=== PATIENT | male | born 1955 | race Caucasian/White ===

== ENCOUNTER 2016-09-08 12:04 | Emergency (ER) | payer OTHER ==
[~2016-09-08] VITALS: Ht 182.9 cm; Wt 91.4 kg
[2016-09-08 12:09] VITALS: BP 144/89; PULSE 78; RESP 18; TEMP 98; O2SAT 98
[2016-09-08] MEDS ORDERED: METF500T PO (12:37)
[2016-09-08] MEDS ORDERED: NADO20TA PO (12:37)
[2016-09-08] MEDS ORDERED: OMEP20TA PO (12:37)
[2016-09-08] MEDS ORDERED: SODIUM CHLORIDE 0.9% FLUSH 10 ML FLUSH IV FLUSH PRN (13:15)
[2016-09-08 13:16] VITALS: O2SAT 97
[2016-09-08 13:38] LABS: AUTOMATED NEUTROPHIL # 2.5 TH/MM3 (1.8-7.7); BASOPHIL % 0.3 % (0.0-2.0); EOSINOPHIL # 0.1 TH/MM3 (0-0.4); EOSINOPHIL % 3.6 % (0.0-4.0); HEMATOCRIT 39.1 % (39.0-51.0); LYMPH % 18.8 % (9.0-44.0); LYMPHOCYTE # 0.8 TH/MM3 (1.0-4.8); MEAN CELL VOLUME 95.8 FL (80.0-100.0); MEAN CORPUSCULAR HEMOGLOBIN 32.6 PG (27.0-34.0); MONO % 14.2 % (0.0-8.0); NEUT % 63.1 % (16.0-70.0); PLATELET COUNT 86 TH/MM3 (150-450); RED BLOOD COUNT 4.08 MIL/MM3 (4.50-5.90); RED CELL DISTRIBUTION WIDTH 15.7 % (11.6-17.2)
[2016-09-08 13:43] LABS: HEMO FLAGS AUTO DIFF
--- NOTE | 2016-09-08 13:43 | PD ---
HPI Chief Complaint: Edema Time Seen by Provider: 12:18 Travel History International Travel<30 days: No Contact w/Intl Traveler<30days: No Traveled to known affect area: No History of Present Illness HPI Is 61-year-old male with a history of hemachromatosis and fairly heavy alcohol use and cirrhosis presents emergency department for increasing abdominal distention over the past 4-5 days. Patient states he has been told he had fluid on his abdomen before but has never had any drained off. Denies any fever denies any abdominal pain. Patient states is causing fairly tense abdomen and states that he has sometimes having a problem taking a deep breath secondary to fluid. States that he called his radial drill operator here in town who cannot see him until next week, called his primary care physician who offered to see him about 4:00 this afternoon but ultimately decided to come to see the emergency department first. First encounter with the patient is sitting upright in a stretcher in no apparent distress reading a magazine. He also has noticed some swelling in bilateral lower extremities. His main complaint to me today as it feels uncomfortable when he bends over to tie his shoes. PFSH Past Medical History Asthma: Yes Diabetes: Yes Patient Takes Glucophage: Yes Diminished Hearing: No Gastrointestinal Disorders: Yes (HEMACHROMATOSIS/LIVER FAILURE) GERD: Yes Hypertension: Yes Medical other: Yes (UMBILICAL HERNIA) Tetanus Vaccination: > 5 Years Influenza Vaccination: Yes Past Surgical History Abdominal Surgery: Yes (HERNIA REPAIR X2) Social History Alcohol Use: No (FORMER) Tobacco Use: No Substance Use: No Allergies-Medications (Allergen,Severity, Reaction): Coded Allergies: No Known Allergies (Unverified , 09/08/16) Reported Meds & Prescriptions Reported Meds & Active Scripts Active Reported Metformin (Metformin HCl) 500 Mg Tab 500 Mg PO BIDPC With meals Omeprazole 20 Mg Tab 20 Mg PO DAILY Nadolol 20 Mg Tab 20 Mg PO DAILY Review of Systems Except as stated in HPI: all other systems reviewed are Neg Physical Exam Narrative GENERAL: [Well-developed well-nourished, no apparent distress. SKIN: Focused skin assessment warm/dry. No jaundice HEAD: Atraumatic. Normocephalic. EYES: Pupils equal and round. No scleral icterus. No injection or drainage. ENT: No nasal bleeding or discharge. Mucous membranes pink and moist. NECK: Trachea midline. No JVD. CARDIOVASCULAR: Regular rate and rhythm. No murmur appreciated. RESPIRATORY: No accessory muscle use. Clear to auscultation. Breath sounds equal bilaterally. GASTROINTESTINAL: Abdomen soft, non-tender, distended consistent with a full- term . There is positive fluid wave an umbilical hernia which is easily reduced. No peritoneal signs, no rebound no percussive tenderness. Hepatic and splenic margins not palpable. MUSCULOSKELETAL: No obvious deformities. No clubbing. No cyanosis. 2+ bilateral lower extremity pitting edema to the mid tibia.. NEUROLOGICAL: Awake and alert. No obvious cranial nerve deficits. Motor grossly within normal limits. Normal speech. PSYCHIATRIC: Appropriate mood and affect; insight and judgment normal. Data Data Last Documented VS Vital Signs Date Time Temp Pulse Resp B/P Pulse Ox O2 Delivery O2 Flow Rate FiO2 09/08/16 15:13 71 18 147/81 100 Room Air 09/08/16 12:09 98.0 Orders Complete Blood Count With Diff (09/08/16 13:13) Comprehensive Metabolic Panel (09/08/16 13:13) Lipase (09/08/16 13:13) Prothrombin Time / Inr (Pt) (09/08/16 13:13) Act Partial Throm Time (Ptt) (09/08/16 13:13) Iv Access Insert/Monitor (09/08/16 13:13) Ecg Monitoring (09/08/16 13:13) Oximetry (09/08/16 13:13) Sodium Chloride 0.9% Flush (Ns Flush) (09/08/16 13:15) Electrocardiogram (09/08/16 13:13) Chest, Single Ap (09/08/16 ) Ed Poc Ultrasound (09/08/16 ) Labs Laboratory Tests Test 09/08/16 13:30 White Blood Count 4.0 TH/MM3 Red Blood Count 4.08 MIL/MM3 Hemoglobin 13.3 GM/DL Hematocrit 39.1 % Mean Corpuscular Volume 95.8 FL Mean Corpuscular Hemoglobin 32.6 PG Mean Corpuscular Hemoglobin 34.0 % Concent Red Cell Distribution Width 15.7 % Platelet Count 86 TH/MM3 Mean Platelet Volume 9.0 FL Neutrophils (%) (Auto) 63.1 % Lymphocytes (%) (Auto) 18.8 % Monocytes (%) (Auto) 14.2 % Eosinophils (%) (Auto) 3.6 % Basophils (%) (Auto) 0.3 % Neutrophils # (Auto) 2.5 TH/MM3 Lymphocytes # (Auto) 0.8 TH/MM3 Monocytes # (Auto) 0.6 TH/MM3 Eosinophils # (Auto) 0.1 TH/MM3 Basophils # (Auto) 0.0 TH/MM3 CBC Comment AUTO DIFF Differential Comment AUTO DIFF CONFIRMED Platelet Estimate LOW Platelet Morphology Comment NORMAL Prothrombin Time 14.4 SEC Prothromb Time International 1.3 RATIO Ratio Activated Partial 33.0 SEC Thromboplast Time Sodium Level 137 MEQ/L Potassium Level 4.1 MEQ/L Chloride Level 100 MEQ/L Carbon Dioxide Level 26.6 MEQ/L Anion Gap 10 MEQ/L Blood Urea Nitrogen 8 MG/DL Creatinine 0.70 MG/DL Estimat Glomerular Filtration 115 ML/MIN Rate Random Glucose 127 MG/DL Calcium Level 8.6 MG/DL Total Bilirubin 3.4 MG/DL Aspartate Amino Transf 70 U/L (AST/SGOT) Alanine Aminotransferase 39 U/L (ALT/SGPT) Alkaline Phosphatase 148 U/L Total Protein 7.8 GM/DL Albumin 2.6 GM/DL Lipase 162 U/L [facility] Medical Decision Making Medical Screen Exam Complete: Yes Emergency Medical Condition: Yes Interpretation(s) EKG shows normal sinus rhythm normal axis and normal R-wave progression. Borderline prolonged QT with QTC of 467. Remainder of the intervals within normal limits. No concerning ST T changes. This is a borderline EKG. Differential Diagnosis Asciites, liver failure, coagulopathy, hemachromatosis. Narrative Course Patient roomed in ED. He is reading a magazine in [facility]. His chief complaint is that his abdominal distension is limiting is flexion at the waist and difficult to tie his shoes. He has no indication for emergent paracentesis at this time. Safer alternative is for IR intervention and an ambulatory order has been placed. Discussed he needs to follow up with his PCP and discussed need for follow up with his GI which he states he has already established. His labs suggest a moderate liver disfunction with INR of 1.3, moderate hypoalbuminemia and mild thrombocytopenia. Discussed continued abstinence from alcohol he quit alcohol in june. Discussed return to ED criteria. Procedures Procedure Narrative Bedside ultrasound transabdominal: There is free fluid in the majority of his abdomen. This represents significant amount of ascites. Diagnosis Primary Impression: Ascites Qualified Code: R18.8 - Other ascites Additional Instructions: Patient has no indication for emergent drainage of large volume ascites today. He has been referred to interventional radiology. I have urged him to follow- up with his radial drill operator and his primary care provider. Disposition: 01 DISCHARGE HOME Condition: Stable Luis Enrique Rios MD Sep 08, 2016 13:43
[2016-09-08 13:45] LABS: CHLORIDE 100 MEQ/L (98-107); POTASSIUM 4.1 MEQ/L (3.5-5.1); SODIUM (NA) 137 MEQ/L (136-145)
[2016-09-08 13:49] LABS: ANION GAP 10 MEQ/L (5-15); BICARBONATE 26.6 MEQ/L (21.0-32.0)
[2016-09-08 13:50] LABS: BLOOD UREA NITROGEN 8 MG/DL (7-18); INTERNATIONAL NORMALIZED RATIO 1.3 RATIO; PROTHROMBIN TIME - PATIENT 14.4 SEC (9.8-11.6)
[2016-09-08 13:52] LABS: ALT (GPT) 39 U/L (12-78); AST (GOT) 70 U/L (15-37); GLOMERULAR FILTRATION RATE 115 ML/MIN (>89)
[2016-09-08 13:54] LABS: TOTAL BILIRUBIN ADULT 3.4 MG/DL (0.2-1.0)
[2016-09-08 13:55] LABS: ALKALINE PHOSPHATASE 148 U/L (45-117)
[2016-09-08 14:07] LABS: PLATELET ESTIMATE SMEAR LOW (NORMAL); PLATELET MORPHOLOGY NORMAL (NORMAL); SCAN/DIFF AUTO DIFF CONFIRMED
--- NOTE | 2016-09-08 14:12 | RADHPO ---
EXAM DATE/TIME: 09/08/2016 13:49 [facility] COMPARISON: No previous studies available for comparison. INDICATIONS : Cough and retaining fluid MEDICAL HISTORY : Chronic obstructive pulmonary disease. SURGICAL HISTORY : None. ENCOUNTER: Initial ACUITY: 2 days PAIN SCORE: 1/10 LOCATION: Bilateral chest FINDINGS: Linear areas of apparent atelectasis are seen in both bases. Heart and pulmonary vascularity are nor mal. Portions of the bony skeleton visualized are unremarkable. CONCLUSION: Apparent atelectatic changes both bases, otherwise negative. Aryan Macias MD FACR on September 08, 2016 at 14:03 Board Certified Radiologist. This report was verified electronically.
[2016-09-08 15:13] VITALS: BP 147/81; PULSE 71; RESP 18; O2SAT 100
--- NOTE | 2016-09-09 21:31 | EKG ---
Date Performed: 09/08/2016 Time Performed: 13:19:36 PTAGE: 61 years EKG: Sinus rhythm Prolonged QT interval Lateral T wave changes are nonspecific Low QRS voltages in precordial leads Dago rderline ECG NO PREVIOUS TRACING DOCTOR: Myrna Cruz Interpretating Date/Time 09/09/2016 21:30:31
== END 2016-09-08 15:19 | disposition home or self-care (01) ==
LOC: PHED 12:04
DX: R18.8 Other ascites (principal); I10 Essential (primary) hypertension
CPT/HCPCS: 71010; 80053; 83690; 85025; 85610; 85730; 93005

== ENCOUNTER 2016-09-17 10:02 | Day surgery (SDC) | payer OTHER ==
[~2016-09-17 10:02] MED LIST: METF500T PO; NADO20TA PO; OMEP20TA PO
[2016-09-17 11:18] VITALS: BP 137/93; PULSE 72; RESP 16; TEMP 97; O2SAT 99
[2016-09-17] MEDS ORDERED: ALBUMIN HUMAN 25% 25 GM/100 ML BAGP IV ONE (12:30)
[2016-09-17 12:50] VITALS: BP 126/63; PULSE 82; RESP 16; TEMP 98.7; O2SAT 99
[2016-09-17 13:05] VITALS: BP 128/75; PULSE 82; RESP 16; O2SAT 99
[2016-09-17 13:20] VITALS: BP 134/77; PULSE 78; RESP 16; O2SAT 99
--- NOTE | 2016-09-17 14:32 | RADRPT ---
EXAM DATE/TIME: 09/17/2016 11:09 [facility] COMPARISON: No previous studies available for comparison. INDICATIONS : Ascites. MEDICAL HISTORY : Hypertension. Gastroesophageal reflux disease. Asthma. Liver failure. Hemachromatosis. Diabetes. SURGICAL HISTORY : Hernia repair. Colonoscopy. ENCOUNTER: Initial ACUITY: 3 weeks PAIN SCORE: 3/10 LOCATION: Abdomen. FLUID: Total volume of 6000 cc of clear, red fluid was removed. Fluid was discarded. Paracentesis was therapeutic only. Post procedure scanning reveals no hematoma or other complication. TECHNIQUE: 1. Ultrasound guidance for abdominal paracentesis. 2. Paracentesis. The risks, benefits, and alternatives to ultrasound guided paracentesis were explained to the patient in detail including the risk of bleeding and infection. Written and verbal informed consent was obt ained. With the patient on the ultrasound table, ultrasound imaging was used to select the most appropriate approach for paracentesis. Overlying skin was prepped and draped in the usual sterile fashion and wi th a local anesthetic, a dermatotomy was made with an 11 blade scalpel. A 6 Telugu [id number] ca theter was introduced into the peritoneal cavity and fluid was collected. The patient tolerated the procedure well and left the ultrasound suite in stable condition. CONCLUSION: Uncomplicated ultrasound guided paracentesis. Only 6000 cc were removed in this initial paracentesis . Patient received albumin per protocol. Aryan Macias MD FACR on September 17, 2016 at 14:30 Board Certified Radiologist. This report was verified electronically.
== END 2016-09-17 13:40 | disposition home or self-care (01) ==
LOC: HRAD 10:02 → HRIP 10:07 → HRAD 13:40
PROVIDERS: ATTEND Hospitalist
DX: R18.8 Other ascites (principal); I10 Essential (primary) hypertension; E11.9 Type 2 diabetes mellitus without complications; J45.909 Unspecified asthma, uncomplicated; K21.9 Gastro-esophageal reflux disease without esophagitis
CPT/HCPCS: 49083; C1729; P9047; 96365

== ENCOUNTER 2016-09-24 09:49 | Day surgery (SDC) | payer OTHER ==
[2016-09-24 10:50] VITALS: BP 139/77; PULSE 86; RESP 18; TEMP 97; O2SAT 100
[2016-09-24] MEDS ORDERED: ALBUMIN HUMAN 25% 50 GM IV ONE (12:00)
[2016-09-24 12:10] VITALS: BP 142/79; PULSE 62; RESP 20; TEMP 98.4; O2SAT 98
--- NOTE | 2016-09-24 12:20 | RADRPT ---
EXAM DATE/TIME: 09/24/2016 10:57 [facility] COMPARISON: US GUIDED ABD PARACENTESIS, September 17, 2016, 11:09. INDICATIONS : Ascites. MEDICAL HISTORY : Hypertension. Gastroesophageal reflux disease. Asthma. Liver failure. Hemachromatosis. Diabetes. SURGICAL HISTORY : Hernia repair. Colonoscopy. ENCOUNTER: Subsequent ACUITY: 1 week PAIN SCORE: 0/10 LOCATION: Right lower quadrant FLUID: Total volume of 8,000 cc of cloudy, red fluid was removed. Fluid was discarded. Paracentesis was therapeutic only. Post procedure scanning reveals no hematoma or other complication. TECHNIQUE: 1. Ultrasound guidance for abdominal paracentesis. 2. Paracentesis. The risks, benefits, and alternatives to ultrasound guided paracentesis were explained to the patient in detail including the risk of bleeding and infection. Written and verbal informed consent was obt ained. With the patient on the ultrasound table, ultrasound imaging was used to select the most appropriate approach for paracentesis. Overlying skin was prepped and draped in the usual sterile fashion and wi th a local anesthetic, a dermatotomy was made with an 11 blade scalpel. A 6 Indonesian [id number] ca theter was introduced into the peritoneal cavity and fluid was collected. The patient tolerated the procedure well and left the ultrasound suite in stable condition. CONCLUSION: Uncomplicated ultrasound guided paracentesis. Low Lynn MD on September 24, 2016 at 12:18 Board Certified Radiologist. This report was verified electronically.
[2016-09-24 12:35] VITALS: BP 140/84; PULSE 80; RESP 20; O2SAT 97
[2016-09-24 13:30] VITALS: BP 142/82; PULSE 83; RESP 20; O2SAT 98
== END 2016-09-24 13:36 | disposition home or self-care (01) ==
LOC: HRAD 09:49
PROVIDERS: ATTEND Hospitalist
DX: R18.8 Other ascites (principal); E11.9 Type 2 diabetes mellitus without complications; I10 Essential (primary) hypertension; J45.909 Unspecified asthma, uncomplicated; K21.9 Gastro-esophageal reflux disease without esophagitis
CPT/HCPCS: 49083; 96365; C1729; P9047

== ENCOUNTER 2016-10-02 09:52 | Day surgery (SDC) | payer OTHER ==
[2016-10-02] MEDS ORDERED: ALBUMIN HUMAN 25% 75 GM IV ONE (12:15)
--- NOTE | 2016-10-02 12:19 | RADRPT ---
EXAM DATE/TIME: 10/02/2016 10:45 [facility] COMPARISON: EXTERNAL COMPARISON: US GUIDED ABD PARACENTESIS, September 24, 2016, 10:57. [facility], MRI ABDOMEN W & W/O CONTRAST , Aug 20 2016. INDICATIONS : Ascites. MEDICAL HISTORY : Hypertension. Gastroesophageal reflux disease. Asthma. Liver failure. Hemachromatosis. Diabetes. SURGICAL HISTORY : Hernia repair. Colonoscopy. ENCOUNTER: Subsequent ACUITY: 1 week PAIN SCORE: 0/10 LOCATION: Left lower quadrant FLUID: Total volume of 13,100 cc of cloudy, red fluid was removed. Fluid was discarded. Paracentesis was therapeutic only. Post procedure scanning reveals no hematoma or other complication. TECHNIQUE: 1. Ultrasound guidance for abdominal paracentesis. 2. Paracentesis. The risks, benefits, and alternatives to ultrasound guided paracentesis were explained to the patient in detail including the risk of bleeding and infection. Written and verbal informed consent was obt ained. With the patient on the ultrasound table, ultrasound imaging was used to select the most appropriate approach for paracentesis. Overlying skin was prepped and draped in the usual sterile fashion and wi th a local anesthetic, a dermatotomy was made with an 11 blade scalpel. A 6 Welsh Xij-I-zrkwelox ca theter was introduced into the peritoneal cavity and fluid was collected. The patient tolerated the procedure well and left the ultrasound suite in stable condition. CONCLUSION: Uncomplicated ultrasound guided paracentesis. Luis Enrique Saavedra MD on October 02, 2016 at 12:17 Board Certified Radiologist. This report was verified electronically.
[2016-10-02 12:20] VITALS: BP 136/71; PULSE 74; RESP 20; TEMP 96.5; O2SAT 94
[2016-10-02 12:35] VITALS: BP 126/65; PULSE 74; RESP 20; O2SAT 93
== END 2016-10-02 13:38 | disposition home or self-care (01) ==
LOC: HRAD 09:52 → HRIP 10:10 → HRAD 13:38
PROVIDERS: ATTEND Hospitalist
DX: R18.8 Other ascites (principal); K72.90 Hepatic failure, unspecified without coma; K74.60 Unspecified cirrhosis of liver; E11.9 Type 2 diabetes mellitus without complications; I10 Essential (primary) hypertension; K21.9 Gastro-esophageal reflux disease without esophagitis
CPT/HCPCS: 49083; 96365; C1729; P9047

== ENCOUNTER 2016-10-22 09:48 | Day surgery (SDC) | payer OTHER ==
[2016-10-22 10:22] VITALS: BP 116/70; PULSE 71; RESP 18; TEMP 97; O2SAT 98
[2016-10-22 12:25] VITALS: BP 123/67; PULSE 67; RESP 18; TEMP 97.3; O2SAT 100
[2016-10-22] MEDS ORDERED: ALBUMIN HUMAN 25% 75 GM IV ONE (12:30)
[2016-10-22 12:40] VITALS: BP 119/68; PULSE 68; RESP 18; O2SAT 100
--- NOTE | 2016-10-22 12:49 | RADRPT ---
EXAM DATE/TIME: 10/22/2016 10:24 [facility] COMPARISON: No previous studies available for comparison. INDICATIONS : Ascites. MEDICAL HISTORY : Hypertension. Gastroesophageal reflux disease. Cirrhosis. Hemachromatosis. Diabetes. Asthma. SURGICAL HISTORY : Hernia repair. Colonoscopy. ENCOUNTER: [facility] ACUITY: 3 weeks PAIN SCORE: 0/10 LOCATION: Left lower quadrant FLUID: Total volume of 15,300 cc of clear, red fluid was removed. Fluid was discarded. Paracentesis was therapeutic only. Post procedure scanning reveals no hematoma or other complication. TECHNIQUE: 1. Ultrasound guidance for abdominal paracentesis. 2. Paracentesis. The risks, benefits, and alternatives to ultrasound guided paracentesis were explained to the patient in detail including the risk of bleeding and infection. Written and verbal informed consent was obt ained. With the patient on the ultrasound table, ultrasound imaging was used to select the most appropriate approach for paracentesis. Overlying skin was prepped and draped in the usual sterile fashion and wi th a local anesthetic, a dermatotomy was made with an 11 blade scalpel. A 6 Romanian [id number] ca theter was introduced into the peritoneal cavity and fluid was collected. The patient tolerated the procedure well and left the ultrasound suite in stable condition. CONCLUSION: Uncomplicated ultrasound guided paracentesis. Morgan Hutchison MD on October 22, 2016 at 12:47 Board Certified Radiologist. This report was verified electronically.
[2016-10-22 13:40] VITALS: BP 121/70; PULSE 66; RESP 18; O2SAT 99
== END 2016-10-22 13:45 | disposition home or self-care (01) ==
LOC: HRAD 09:48 → HRIP 09:48 → HRAD 13:45
PROVIDERS: ATTEND Hospitalist
DX: R18.8 Other ascites (principal); K74.60 Unspecified cirrhosis of liver; E83.119 Hemochromatosis, unspecified; E11.9 Type 2 diabetes mellitus without complications; I10 Essential (primary) hypertension; K21.9 Gastro-esophageal reflux disease without esophagitis; J45.909 Unspecified asthma, uncomplicated; Z79.84 Long term (current) use of oral hypoglycemic drugs
CPT/HCPCS: 49083; 96365; 96366; C1729; P9047

== ENCOUNTER 2016-10-26 20:59 | Inpatient (IN) | payer OTHER ==
[~2016-10-26] VITALS: Ht 182.9 cm; Wt 65.9 kg
[2016-10-26 21:04] VITALS: BP 139/74; PULSE 77; RESP 14; TEMP 98; O2SAT 97
--- NOTE | 2016-10-26 21:28 | PD ---
HPI Chief Complaint: GI Complaint Time Seen by Provider: 21:16 Travel History International Travel<30 days: No Contact w/Intl Traveler<30days: No Traveled to known affect area: No History of Present Illness HPI This 61-year-old male is complaining of drainage of fluid from his umbilical hernia. This gentleman has a history of ascites. He says that he was diagnosed with hemachromatosis many years ago. He was a drinker he has not drank since June to [place] recently. He has been getting periodic paracentesis done. Today he noted that there was some drainage from the area of his umbilical hernia. He has not had any fever or chills. There is no history of trauma. Patient states he had a hernia repaired twice many years ago [facility] Past Medical History Asthma: Yes Diabetes: Yes Diminished Hearing: No Gastrointestinal Disorders: Yes (HEMACHROMATOSIS/LIVER FAILURE) GERD: Yes Hypertension: Yes Past Surgical History Abdominal Surgery: Yes (HERNIA REPAIR X2) Social History Alcohol Use: No (FORMER) Tobacco Use: No Substance Use: No Allergies-Medications (Allergen,Severity, Reaction): Coded Allergies: No Known Allergies (Unverified , 09/08/16) Reported Meds & Prescriptions Reported Meds & Active Scripts Active Reported Metformin (Metformin HCl) 500 Mg Tab 500 Mg PO BIDPC With meals Omeprazole 20 Mg Tab 20 Mg PO DAILY Nadolol 20 Mg Tab 20 Mg PO DAILY Review of Systems General / Constitutional: No: Fever, Chills Eyes: No: Diploplia HENT: No: Headaches, Vertigo Cardiovascular: No: Chest Pain or Discomfort, Palpitations Respiratory: No: Cough, Shortness of Breath Gastrointestinal: No: Nausea, Vomiting Musculoskeletal: No: Myalgias, Arthralgias Skin: No Rash, No Itching Psychiatric: No: Anxiety Physical Exam Narrative GENERAL: Well-developed male SKIN: Focused skin assessment warm/dry. HEAD: Atraumatic. Normocephalic. EYES: Pupils equal and round. No scleral icterus. No injection or drainage. ENT: No nasal bleeding or discharge. Mucous membranes pink and moist. NECK: Trachea midline. No JVD. CARDIOVASCULAR: Regular rate and rhythm. No murmur appreciated. RESPIRATORY: No accessory muscle use. Clear to auscultation. Breath sounds equal bilaterally. GASTROINTESTINAL: Abdomen soft, non-tender, it is somewhat distended but not tense. There is an umbilical hernia about the size of an orange. Some of the skin is erythematous. There is some drainage of clear fluid from the lower part of this hernia MUSCULOSKELETAL: No obvious deformities. No clubbing. No cyanosis. No edema. NEUROLOGICAL: Awake and alert. No obvious cranial nerve deficits. Motor grossly within normal limits. Normal speech. PSYCHIATRIC: Appropriate mood and affect; insight and judgment normal. Data Data Last Documented VS Vital Signs Date Time Temp Pulse Resp B/P Pulse Ox O2 Delivery O2 Flow Rate FiO2 10/26/16 21:04 98.0 77 14 139/74 97 Room Air Orders Complete Blood Count With Diff (10/26/16 21:33) Comprehensive Metabolic Panel (10/26/16 21:33) Prothrombin Time / Inr (Pt) (10/26/16 21:33) Act Partial Throm Time (Ptt) (10/26/16 21:33) Blood Culture (10/26/16 21:33) Sodium Chlor 0.9% 1000 Ml Inj (Ns 1000 M (10/26/16 21:45) Levofloxacin 750 Mg Premix Inj (Levaquin (10/26/16 21:45) Consult General Surgery (10/26/16 ) Admit Order (Ed Use Only) (10/26/16 21:46) Place In Observation (10/26/16 ) Vital Signs (Adult) DUYEN.Q4H (10/26/16 21:47) Activity Bed Rest With Brp (10/26/16 21:47) Diet Heart Healthy (10/27/16 Breakfast) Metformin (Glucophage) (10/27/16 09:00) Nadolol (Corgard) (10/27/16 09:00) (Nf) Omeprazole (10/27/16 09:00) Act Partial Throm Time (Ptt) (10/26/16 21:48) (Hub Use Only)Inp Phy Cons/Ref (10/26/16 ) MDM Medical Decision Making Medical Screen Exam Complete: Yes Emergency Medical Condition: Yes Medical Record Reviewed: Yes Differential Diagnosis Differential includes umbilical hernia, leakage of ascites, Narrative Course I have discussed the case with Dr. Peguero. This patient is at risk for spontaneous peritonitis. Skin on his umbilical hernia is somewhat erythematous and appears to be breaking down in areas. Dr. peguero recommends admission to medical service with Levaquin Diagnosis Primary Impression: spontaneous drainage of ascites Additional Impression: Umbilical hernia Indra Chung MD October 26, 2016 21:28
[2016-10-26] MEDS ORDERED: LEVOFLOXACIN 750 MG PREMIX INJ 150 ML IV ONE (21:45)
[2016-10-26 22:31] VITALS: BP 131/67; PULSE 77; RESP 15; TEMP 98; O2SAT 98
[2016-10-26 22:41] LABS: AUTOMATED NEUTROPHIL # 4.1 TH/MM3 (1.8-7.7); BASOPHIL % 0.4 % (0.0-2.0); EOSINOPHIL # 0.2 TH/MM3 (0-0.4); EOSINOPHIL % 3.8 % (0.0-4.0); HEMATOCRIT 40.5 % (39.0-51.0); HEMO FLAGS DIFF FINAL; LYMPH % 13.8 % (9.0-44.0); LYMPHOCYTE # 0.9 TH/MM3 (1.0-4.8); MEAN CELL VOLUME 95.4 FL (80.0-100.0); MEAN CORPUSCULAR HEMOGLOBIN 32.6 PG (27.0-34.0); MEAN CORPUSCULAR HGB CONC 34.2 % (32.0-36.0); MONO % 17.7 % (0.0-8.0); NEUT % 64.3 % (16.0-70.0); PLATELET COUNT 123 TH/MM3 (150-450); RED BLOOD COUNT 4.24 MIL/MM3 (4.50-5.90); RED CELL DISTRIBUTION WIDTH 14.3 % (11.6-17.2); WHITE BLOOD COUNT 6.3 TH/MM3 (4.0-11.0)
[2016-10-26 22:42] LABS: CHLORIDE 92 MEQ/L (98-107); POTASSIUM 4.3 MEQ/L (3.5-5.1); SODIUM (NA) 129 MEQ/L (136-145)
[2016-10-26] MEDS: SODIUM CHLOR 0.9% 1000 ML INJ 1,000 ML IV SCH (22:43)
[2016-10-26 22:45] LABS: ANION GAP 9 MEQ/L (5-15); BICARBONATE 28.4 MEQ/L (21.0-32.0); BLOOD UREA NITROGEN 14 MG/DL (7-18)
[2016-10-26 22:48] LABS: ALT (GPT) 45 U/L (12-78); AST (GOT) 63 U/L (15-37); GLOMERULAR FILTRATION RATE 90 ML/MIN (>89)
[2016-10-26 22:50] LABS: INTERNATIONAL NORMALIZED RATIO 1.4 RATIO; PROTHROMBIN TIME - PATIENT 15.2 SEC (9.8-11.6); TOTAL BILIRUBIN ADULT 2.9 MG/DL (0.2-1.0)
[2016-10-26 22:51] LABS: ALKALINE PHOSPHATASE 146 U/L (45-117)
[2016-10-26 23:16] VITALS: BP 134/66; PULSE 78; RESP 15; O2SAT 98
[2016-10-27] VITALS: BP 140/73; PULSE 81; RESP 18; TEMP 98.1; O2SAT 99
--- NOTE | 2016-10-27 07:34 | HHI.HP ---
HPI Service [facility] Hospitalists Primary Care Physician Gigi Kelley MD Admission Diagnosis SPONTANEOUS DRAINAGE OF ASCITES FROM UMBILICAL HERNIA Chief Complaint: Fluid draining from umbilicus, ascites Travel History International Travel<30 Days: No Contact w/Intl Traveler <30 Da: No Traveled to Known Affected Are: No History of Present Illness This 61-year-old male with hemochromatosis is complaining of spontaneous drainage of fluid from his umbilical hernia which started a few hours prior to arrival. This gentleman has a history of ascites for the last 3 months. He says that he was diagnosed with hemochromatosis many years ago and underwent phlebotomy for approximately one year. He was a social drinker, but reportedly he has not drank alcohol since June 2016. He has been getting periodic paracentesis done over the last month. Today he noted that there was some drainage from the area of his umbilical hernia. He has had 2 umbilical hernia repairs before in [place]. He has not had any fever or chills. There is no history of trauma. She reports she overall feels fine but is concerned that he continues to have blood-tinged serous discharge from his umbilicus. General surgery has been consult. Outpt MRI, CT, oncology and GI notes reviewed. Pt has some nodular masses in liver concerning for HCC, but nothing conclusive thus far. Review of Systems Constitutional: COMPLAINS OF: Weight gain, DENIES: Diaphoretic episodes, Fatigue, Fever, Weight loss, Chills, Dizziness, Change in appetite, Night Sweats Endocrine: DENIES: Heat/cold intolerance, Polydipsia, Polyuria, Polyphagia Eyes: DENIES: Blurred vision, Diplopia, Eye inflammation, Eye pain, Vision loss , Photosensitivity, Double Vision Ears, nose, mouth, throat: DENIES: Tinnitus, Hearing loss, Vertigo, Nasal discharge, Oral lesions, Throat pain, Hoarseness, Ear Pain, Running Nose, Epistaxis, Sinus Pain, Toothache, Odynophagia Respiratory: COMPLAINS OF: Wheezing, DENIES: Apneas, Cough, Snoring, Hemoptysis, Sputum production, Shortness of breath Cardiovascular: DENIES: Chest pain, Palpitations, Syncope, Dyspnea on Exertion , PND, Lower Extremity Edema, Orthopnea, Claudication Gastrointestinal: COMPLAINS OF: Nausea, DENIES: Abdominal pain, Black stools, Bloody stools, BRB per rectum, Constipation, Diarrhea, GERD, Reflux, Vomiting, Difficulty Swallowing, Anorexia, See HPI Musculoskeletal: DENIES: Joint pain, Muscle aches, Stiffness, Joint Swelling, Back pain, Neck pain Integumentary: DENIES: Abnormal pigmentation, Nail changes, Pruritus, Rash Hematologic/lymphatic: COMPLAINS OF: Bruising Immunologic/allergic: DENIES: Eczema, Urticaria Neurologic: DENIES: Abnormal gait, Headache, Localized weakness, Paresthesias, Seizures, Speech Problems, Tremor, Poor Balance Psychiatric: DENIES: Anxiety, Confusion, Mood changes, Depression, Hallucinations, Agitation, Suicidal Ideation, Homicidal Ideation, Delusions, History of Bipolar, History of Schizophrenia Past Family Social History Past Medical History Hemochromatosis Cirrhosis with ascites Esophageal varices leading to GI bleed Recurrent umbilical hernia GERD Hyperglycemia/ ? DM Past Surgical History Umbilical hernia repair 2 several years ago in [place] Liver biopsy regarding hemochromatosis Esophageal varices banding Reported Medications Metformin (Metformin HCl) 500 Mg Tab 500 Mg PO BIDPC With meals Omeprazole 20 Mg Tab 20 Mg PO DAILY Nadolol 20 Mg Tab 20 Mg PO DAILY Albuterol inhaler when necessary Allergies: Coded Allergies: No Known Allergies (Unverified , 10/26/16) Family History Mother at age 74 of COPD complications Father at age 77 of alcoholic cirrhosis Social History Patient previously lived in [place], [place] and [place], moved here in March 2016.. Reportedly had not had ascites until a few months ago No tobacco, denies illicit drug use, no alcohol since June 2016 but did used to drink 2-3 drinks several times a week socially. Retired from sales. Work with [employer] most recently. Specifically denies any history of IV drug abuse. He has no children. His brother is his next of kin and lives nearby him. Physical Exam Vital Signs Vital Signs Date Time Temp Pulse Resp B/P Pulse Ox O2 Delivery O2 Flow Rate FiO2 10/27/16 04:48 10/27/16 00:00 98.1 81 18 140/73 99 10/26/16 23:16 78 15 134/66 98 Room Air 10/26/16 22:31 98.0 77 15 131/67 98 10/26/16 21:04 98.0 77 14 139/74 97 Room Air Physical Exam GENERAL: This is a well-nourished, thin, well-developed patient, in no apparent distress. Pleasant, cooperative with exam. No acute distress. SKIN: Mild jaundice. Cool and dry. HEAD: Atraumatic. Normocephalic. No temporal or scalp tenderness. EYES: Pupils equal round and reactive. Extraocular motions intact. Minimal scleral icterus. No injection or drainage. ENT: Nose without bleeding, purulent drainage or septal hematoma. Airway patent. NECK: Trachea midline. No JVD or lymphadenopathy. Supple, nontender, no meningeal signs. CARDIOVASCULAR: Regular rate and rhythm without murmurs, gallops, or rubs. RESPIRATORY: Clear to auscultation. Breath sounds equal bilaterally. No wheezes , rales, or rhonchi. GASTROINTESTINAL: Abdomen soft, non-tender, moderately distended but not tense. Liver edge is palpated several centimeters below the right costal margin and is firm. Midline palpable mass in the supraumbilical area. No guarding. Bowel sounds normal. Large umbilical hernia with bandaging and collection bag attached accumulating bloody tinged serous discharge. Does not appear to be exudative. MUSCULOSKELETAL: Extremities without clubbing, cyanosis, or edema. No joint tenderness, effusion, or edema noted. No calf tenderness. NEUROLOGICAL: Awake and alert. Cranial nerves II through XII intact. Motor and sensory grossly within normal limits. Five out of 5 muscle strength in all muscle groups. Normal speech. Laboratory Laboratory Tests Test 10/26/16 22:10 White Blood Count 6.3 Red Blood Count 4.24 Hemoglobin 13.8 Hematocrit 40.5 Mean Corpuscular Volume 95.4 Mean Corpuscular Hemoglobin 32.6 Mean Corpuscular Hemoglobin 34.2 Concent Red Cell Distribution Width 14.3 Platelet Count 123 Mean Platelet Volume 8.4 Neutrophils (%) (Auto) 64.3 Lymphocytes (%) (Auto) 13.8 Monocytes (%) (Auto) 17.7 Eosinophils (%) (Auto) 3.8 Basophils (%) (Auto) 0.4 Neutrophils # (Auto) 4.1 Lymphocytes # (Auto) 0.9 Monocytes # (Auto) 1.1 Eosinophils # (Auto) 0.2 Basophils # (Auto) 0.0 CBC Comment DIFF FINAL Differential Comment Prothrombin Time 15.2 Prothromb Time International 1.4 Ratio Activated Partial 34.0 Thromboplast Time Sodium Level 129 Potassium Level 4.3 Chloride Level 92 Carbon Dioxide Level 28.4 Anion Gap 9 Blood Urea Nitrogen 14 Creatinine 0.86 Estimat Glomerular Filtration 90 Rate Random Glucose 142 Calcium Level 9.2 Total Bilirubin 2.9 Aspartate Amino Transf 63 (AST/SGOT) Alanine Aminotransferase 45 (ALT/SGPT) Alkaline Phosphatase 146 Total Protein 8.2 Albumin 3.2 Date/Time Procedure Status Source Growth 10/26/16 22:10 Aerobic Blood Culture Received Blood Peripheral Pending 10/26/16 22:10 Anaerobic Blood Culture Received Blood Peripheral Pending Result Diagram: 10/26/16 2210 10/26/160 Assessment and Plan Problem List: (1) Recurrent umbilical hernia Status: Chronic Plan: Hx of 2 repairs in [place] area per pt. Gen surgery to see pt. Not sure if mesh is still in appropriate position. Blood tinged serous dc noted from umbilicus (2) Ascites Status: Chronic Plan: Likely assoc with multifactorial cirrhosis. No signs of infectious process. Continue periodic paracentesis (3) Hemochromatosis Status: Chronic Plan: s/p multiple phlebotomies. Outpt imaging does not indicate iron deposition in liver at this point. (4) Chronic GERD Status: Chronic Plan: continue ppi (5) Hyperglycemia Status: Chronic Plan: ? underlying DM due to hepatic insufficiency. will check A1c. Continue metformin for now. DM diet. Code Status Full Discussed Condition With Patient and ER provider Problem Qualifiers (1) Ascites: Qualified Code: R18.8 - Other ascites Nemesio Gomez MD PhD October 27, 2016 07:34
[2016-10-27 08:00] VITALS: BP 130/44; PULSE 74; RESP 18; TEMP 97.8; O2SAT 99
[2016-10-27] MEDS: NADOLOL 20 MG TAB PO SCH (09:08)
[2016-10-27] MEDS: LEVOFLOXACIN 500 MG TAB PO SCH (09:08)
[2016-10-27] MEDS: PANTOPRAZOLE SOD 20 MG DELAYED RELEASE TAB PO SCH (09:08)
[2016-10-27] MEDS: metFORMIN HCL 500 MG TAB PO SCH ×2 (09:08→17:19)
[2016-10-27] MEDS: SODIUM CHLOR 0.9% 1000 ML INJ 1,000 ML IV SCH (09:40)
[2016-10-27 09:49] LABS: BICARBONATE 26.7 MEQ/L (21.0-32.0)
[2016-10-27 09:53] LABS: ALT (GPT) 40 U/L (12-78); AST (GOT) 58 U/L (15-37); GLOMERULAR FILTRATION RATE 85 ML/MIN (>89)
[2016-10-27 09:54] LABS: ANION GAP 9 MEQ/L (5-15); CHLORIDE 93 MEQ/L (98-107); POTASSIUM 4.3 MEQ/L (3.5-5.1); SODIUM (NA) 129 MEQ/L (136-145)
[2016-10-27 09:56] LABS: ALKALINE PHOSPHATASE 113 U/L (45-117)
[2016-10-27 09:59] LABS: BLOOD UREA NITROGEN 13 MG/DL (7-18)
[2016-10-27 10:06] LABS: TOTAL BILIRUBIN ADULT 2.9 MG/DL (0.2-1.0)
[2016-10-27 12:00] VITALS: BP 105/57; PULSE 69; RESP 18; TEMP 98.2; O2SAT 97
[2016-10-27 16:00] VITALS: BP 116/55; PULSE 83; RESP 18; TEMP 98.3; O2SAT 95
[2016-10-27 16:20] LABS: HEMOGLOBIN A1a 2.1 %; HEMOGLOBIN A1b 0.9 %; HEMOGLOBIN Ao 79.4 %; HEMOGLOBIN F 6.8 %; HEMOGLOBIN LA1C 2.3 %; HEMOGLOBIN P3 4.4 %
--- NOTE | 2016-10-27 16:48 | HHI.PR ---
Addendum to Inpatient Note Addendum Reason: Additional Documentation Additional Information Received a call from Dr Parekh. He is not sure if surgery would benefit the pt given his multiple comorbidities. I will try aldactone if pt's BP will tolerate. Will transfer to [facility] for Dr Parekh to evaluate. Pt's last volume of d/c was only 50 cc per nurse so he seems to be improving. Still not sure how to stop the drainage unless it seals on it's own. Will continue abx and monitor with current plan of transfer. Explained to pt and his nurse. Nemesio Gomez MD PhD October 27, 2016 16:48
[2016-10-27] MEDS: SPIRONOLACTONE 25 MG TAB PO SCH (17:19)
[2016-10-27 20:00] VITALS: BP 131/78; PULSE 79; RESP 20; TEMP 98.8; O2SAT 96
[2016-10-27 23:15] VITALS: BP 131/77; PULSE 79; RESP 20; TEMP 98.9; O2SAT 97
[2016-10-28] VITALS: BP 128/74; PULSE 80; RESP 20; TEMP 99; O2SAT 95
[2016-10-28 08:00] VITALS: BP 122/63; PULSE 71; RESP 17; TEMP 97.5; O2SAT 97
[2016-10-28] MEDS: LEVOFLOXACIN 500 MG TAB PO SCH (08:19)
[2016-10-28] MEDS: PANTOPRAZOLE SOD 20 MG DELAYED RELEASE TAB PO SCH (08:19)
[2016-10-28] MEDS: metFORMIN HCL 500 MG TAB PO SCH ×2 (08:19→17:55)
[2016-10-28] MEDS: SPIRONOLACTONE 25 MG TAB PO SCH (08:19)
[2016-10-28] MEDS: NADOLOL 20 MG TAB PO SCH (08:19)
[2016-10-28] MEDS: SODIUM CHLOR 0.9% 1000 ML INJ 1,000 ML IV SCH (09:30)
--- NOTE | 2016-10-28 11:43 | HHI.PR ---
Subjective Remarks [place] [facility]. Pt is actively draining from the ulcerated umbilicus and currently has Objective Vitals Vital Signs Date Time Temp Pulse Resp B/P Pulse Ox O2 Delivery O2 Flow Rate FiO2 10/28/16 08:00 97.5 71 17 122/63 97 10/28/16 00:00 99.0 80 20 128/74 95 10/27/16 23:15 98.9 79 20 131/77 97 10/27/16 20:00 98.8 79 20 131/78 96 10/27/16 16:00 98.3 83 18 116/55 95 10/27/16 12:00 98.2 69 18 105/57 97 10/27/16 10/27/16 10/28/16 15:00 23:00 07:00 Intake Total 840 ml 280 ml Output Total 2025 ml 2400 ml 4300 ml Balance -1185 ml -2400 ml -4020 ml Intake Oral 840 ml 280 ml IV Total 0 ml Output Urine Total 350 ml Drainage Total 2025 ml 2400 ml 3950 ml # Voids 4 4 # Bowel Movements 0 Result Diagram: 10/26/16 2210 10/27/16 0915 Other Results Laboratory Tests Test 10/26/16 10/27/16 22:10 09:15 White Blood Count 6.3 TH/MM3 Red Blood Count 4.24 MIL/MM3 Hemoglobin 13.8 GM/DL Hematocrit 40.5 % Mean Corpuscular Volume 95.4 FL Mean Corpuscular Hemoglobin 32.6 PG Mean Corpuscular Hemoglobin 34.2 % Concent Red Cell Distribution Width 14.3 % Platelet Count 123 TH/MM3 Mean Platelet Volume 8.4 FL Neutrophils (%) (Auto) 64.3 % Lymphocytes (%) (Auto) 13.8 % Monocytes (%) (Auto) 17.7 % Eosinophils (%) (Auto) 3.8 % Basophils (%) (Auto) 0.4 % Neutrophils # (Auto) 4.1 TH/MM3 Lymphocytes # (Auto) 0.9 TH/MM3 Monocytes # (Auto) 1.1 TH/MM3 Eosinophils # (Auto) 0.2 TH/MM3 Basophils # (Auto) 0.0 TH/MM3 CBC Comment DIFF FINAL Differential Comment Prothrombin Time 15.2 SEC Prothromb Time International 1.4 RATIO Ratio Activated Partial 34.0 SEC Thromboplast Time Sodium Level 129 MEQ/L 129 MEQ/L Potassium Level 4.3 MEQ/L 4.3 MEQ/L Chloride Level 92 MEQ/L 93 MEQ/L Carbon Dioxide Level 28.4 MEQ/L 26.7 MEQ/L Anion Gap 9 MEQ/L 9 MEQ/L Blood Urea Nitrogen 14 MG/DL 13 MG/DL Creatinine 0.86 MG/DL 0.91 MG/DL Estimat Glomerular Filtration 90 ML/MIN 85 ML/MIN Rate Random Glucose 142 MG/DL 223 MG/DL Calcium Level 9.2 MG/DL 8.8 MG/DL Total Bilirubin 2.9 MG/DL 2.9 MG/DL Aspartate Amino Transf 63 U/L 58 U/L (AST/SGOT) Alanine Aminotransferase 45 U/L 40 U/L (ALT/SGPT) Alkaline Phosphatase 146 U/L 113 U/L Total Protein 8.2 GM/DL 7.2 GM/DL Albumin 3.2 GM/DL 2.8 GM/DL Hemoglobin A1c 5.4 % Objective Remarks General: NAD, AAOx3 Chest: CTA Cardiac: Regular Abd: +BS, soft ulcerated umbilical hernia with bloody ascetic fluid draining Ext: No edema A/P Problem List: (1) Liver cirrhosis Status: Chronic Plan: - Pt is a 61 y/o male with hepatic cirrhosis, esophageal varices, hx of regular alcohol use (none since 06/2016) and hereditary hemochromatosis. - He [place] [facility] to bloody drainage from his umbilical hernia. - Pt has known liver cirrhosis and more recently has required frequent large volume paracentesis. - His last therapeutic paracentesis was on 10/22/16 with removal of 15,300cc of blood tinged ascetic fluid. - Pt was not on any diuretic therapy prior to admission. - As an outpt pt was seen by Dr. Ventura (Oncology) in September 2016 for followup for hemochromatosis and concern for hepatocellular carcinoma with report of MRI imaging abnormalities suggesting enlarging hepatic lesions from 08/20/2016. His AFP 9.5 on 09/22/2016. Because of significant risks associated with liver biopsy, PET/CT scan was ordered in lieu, which was completed on 10/07/2016 and per outpt records this demonstrated a 4.1 x 4.0 cm mass along the inferior aspect right lobe with low grade uptake concerning for malignancy. - General Surgery is planned to evaluate the pt today but not clear what they will be able to do regarding this hernia. - Pt has been started on Aldactone 25mg po daily on 10/27. - If pt requires repeat paracentesis this needs to be diagnostic and therapeutic with fluid sent for cytology/cell count/culture/protein/LDH - GI and Oncology has been consulted. - Stop IVF - Monitor output from draining ascetic fluid. - Await further recommendations. (2) Recurrent umbilical hernia Status: Chronic Plan: - See above. (3) Ascites Status: Chronic Plan: - See above. - Likely assoc with multifactorial cirrhosis, related to hemochromatosis and hx of alcohol use. - No signs of infectious process. (4) Hemochromatosis Status: Chronic Plan: - s/p multiple phlebotomies. - Outpt imaging does not indicate iron deposition in liver at this point. - Most recent labs on 09/22/16 with Ferritin 71, Serum iron 122, TIBC 175, %sat 69.7 (5) Chronic GERD Status: Chronic Plan: - Continue PPI (6) Hyperglycemia Status: Chronic Plan: - He has type 2 diabetes managed with metformin, without any history of nephropathy, neuropathy or retinopathy. - Hgb A1c is 5.4%. - Continue metformin for now. - DM diet. Assessment and Plan Patient examined. Assessment and plan formulated with Louisa Ga PA-C. I agree with the above. hemachromatosis. cirrhosis of liver. ascites with abdomen wall erosion and spontaneous drainage. concern for malignance hepatoma and malignant ascites. had recent pet positive lesion. discussed with gen surg and GI. discussed diuretics and iv albumen. ?closure of the abdomen wound at some point Problem Qualifiers (1) Ascites: Qualified Code: R18.8 - Other ascites Louisa Ga October 28, 2016 11:42 Angel Kolb MD October 28, 2016 18:07
[2016-10-28 12:00] VITALS: BP 125/73; PULSE 75; RESP 17; TEMP 98.2; O2SAT 98
[2016-10-28 16:00] VITALS: BP 123/63; PULSE 73; RESP 18; TEMP 96.7; O2SAT 98
--- NOTE | 2016-10-28 16:50 | PD.CONS ---
General Surgery Consult Brief history: The patient is a 61-year-old male who has known hemachromatosis. Over the last year or 2 days developed increasing evidence of cirrhosis and more recently ascites. He has not had recent medical intervention to control the ascites. He has had paracentesis on several occasions, the last of which was 22 Oct 2016, at which time greater than 15 L of fluid was withdrawn. Over the last few days the patient has begun having leakage of ascitic fluid from his umbilicus which has had an erosion of the skin due to pressure. He was initially admitted in [place] and transferred to [facility] for further medical control of this significant issue At the time of examination the patient complains of no pain and states merely that his abdomen is quite a bit softer than it was before the fluid leaked began. He states that he has been followed by Dr. Ventura of hematology as well as Dr. Olivo from gastroenterology. He states that he's had recent CT, PET, and MR scans. He has a known lesion in the right lobe of the liver but it has not been biopsied at this point. Past medical history/family history/social history/review of systems are all documented in his chart. Examination: GENERAL: The patient is a fairly thin male in no acute distress. He has what appears to be early temporal wasting. HEENT: Unremarkable with no obvious scleral icterus. LUNGS: Clear to percussion and auscultation. HEART: Regular rate and rhythm with no murmurs or gallops. ABDOMEN: The patient's abdomen is soft and has a fluid wave consistent with residual ascites. He has been noted to put out over 2 L of fluid in the last few hours. There is absolutely no evidence of tenderness, guarding, or rebound. The patient has obvious excoriation at the umbilical hernia site which now has a stoma bag over it to collect the fluid. Laboratory Tests Test 10/26/16 10/27/16 22:10 09:15 White Blood Count 6.3 TH/MM3 Red Blood Count 4.24 MIL/MM3 Hemoglobin 13.8 GM/DL Hematocrit 40.5 % Mean Corpuscular Volume 95.4 FL Mean Corpuscular Hemoglobin 32.6 PG Mean Corpuscular Hemoglobin 34.2 % Concent Red Cell Distribution Width 14.3 % Platelet Count 123 TH/MM3 Mean Platelet Volume 8.4 FL Neutrophils (%) (Auto) 64.3 % Lymphocytes (%) (Auto) 13.8 % Monocytes (%) (Auto) 17.7 % Eosinophils (%) (Auto) 3.8 % Basophils (%) (Auto) 0.4 % Neutrophils # (Auto) 4.1 TH/MM3 Lymphocytes # (Auto) 0.9 TH/MM3 Monocytes # (Auto) 1.1 TH/MM3 Eosinophils # (Auto) 0.2 TH/MM3 Basophils # (Auto) 0.0 TH/MM3 CBC Comment DIFF FINAL Differential Comment Prothrombin Time 15.2 SEC Prothromb Time International 1.4 RATIO Ratio Activated Partial 34.0 SEC Thromboplast Time Sodium Level 129 MEQ/L 129 MEQ/L Potassium Level 4.3 MEQ/L 4.3 MEQ/L Chloride Level 92 MEQ/L 93 MEQ/L Carbon Dioxide Level 28.4 MEQ/L 26.7 MEQ/L Anion Gap 9 MEQ/L 9 MEQ/L Blood Urea Nitrogen 14 MG/DL 13 MG/DL Creatinine 0.86 MG/DL 0.91 MG/DL Estimat Glomerular Filtration 90 ML/MIN 85 ML/MIN Rate Random Glucose 142 MG/DL 223 MG/DL Calcium Level 9.2 MG/DL 8.8 MG/DL Total Bilirubin 2.9 MG/DL 2.9 MG/DL Aspartate Amino Transf 63 U/L 58 U/L (AST/SGOT) Alanine Aminotransferase 45 U/L 40 U/L (ALT/SGPT) Alkaline Phosphatase 146 U/L 113 U/L Total Protein 8.2 GM/DL 7.2 GM/DL Albumin 3.2 GM/DL 2.8 GM/DL Hemoglobin A1c 5.4 % He has had no x-rays during this hospitalization; review of his outpatient imaging shows an MR scan which was from August of this year and revealed significant cirrhosis with a lesion in the posterior right lobe which had grown in size from the previous CT scan. Subsequent PET/CT scan showed an increase in the size of the lesion again with very low-grade uptake consistent with a possible hepatocellular carcinoma. Impression: Unfortunate 61-year-old man with worsening cirrhosis secondary to hemachromatosis. He now has the added problem of a significant ascitic leak due to erosion of his umbilical skin. He also has an as yet undiagnosed tumor in the right lobe of his liver. Plan: He will need aggressive fluid therapy as well as possible protein supplement in view of his ongoing ascitic fluid leak. He is certainly at risk for hepatorenal syndrome. I have ordered CBC, BMP, LFTs, coag studies, alpha- fetoprotein, and CEA for the morning. I will also place consultations to hematology and gastroenterology as he is known to those physicians. Unfortunately no surgical intervention could be entertained at this moment due to the significance of the ascitic leak which would erode any attempted repair of either the hernia or the skin. I will follow as needed. I informed the patient that he should be placed on a transplant list at some point in the near future due to the ongoing failure of his liver. Junior Parekh MD October 28, 2016 16:50
[2016-10-28] MEDS ORDERED: LACTULOSE SYRUP 20 GM/30 ML CUP PO PRN (18:15)
[2016-10-28] MEDS ORDERED: ALBUMIN HUMAN 25% 25 GM/100 ML BAGP IV SCH (18:15)
[2016-10-28] MEDS ORDERED: ONDANSETRON HCL 4 MG/2 ML VIAL IV PRN (18:15)
[2016-10-28] MEDS ORDERED: FUROSEMIDE 20 MG TAB PO ONE (18:15)
--- NOTE | 2016-10-28 19:56 | PD.CONS ---
HPI History of Present Illness This is a 61 year old male with cirrhosis and history of hemochromatosis and heavy alcohol use over many years. He discovered he had hemochromatosis at age 34 and had multiple phlebotomies. He was followed by GI in last few years and underwent variceal banding because of GI bleed. He was then rechecked yearly. He has recently moved to [place] to live, march 2016. He continued to drink alcohol until June 2016. Now he abstains. He denies IV drug use. He is admitted because of leaking of ascites via an umbilical hernia. He had history of large volume paracentesis in early 2016 and then again about one week ago when he had 15 liters removed. He noticed his shirt wet a few days ago and realized that his fluid was leaking out his umbilical area. Now a colostomy bag covers it and collects the fluid. He was admitted in [place] and transferred to [place]. He has seen Dr Le once in the office. He has a mass in the liver right lobe that is enlarging and of concern for HCC. He had AFP obtained today that is only mildly elevated. Fluid removed one week ago was not sent for studies. Fluid today was recovered from the bag and sent for cytology. He denies any abdominal pain. No nausea or vomiting. CT and MR have shown splenomegaly and his platelet count is low.[]. PFSH Past Medical History Diabetes on metformin. No heart disease reported. Past Surgical History Hernia repair Coded Allergies: No Known Allergies (Unverified , 10/26/16) Medications Current Medications Medications (Trade) Dose Ordered Sig/Gian Route Start Time Stop Time Status Last Admin (Glucophage) 500 mg BIDPC PO 10/27/16 09:00 10/28/16 17:55 (Corgard) 20 mg DAILY PO 10/27/16 09:00 10/28/16 08:19 (Protonix) 20 mg DAILY PO 10/27/16 09:00 10/28/16 08:19 (Levaquin) 500 mg DAILY PO 10/27/16 09:00 10/28/16 08:19 (Zofran Inj) 4 mg Q6H PRN IV 10/28/16 18:15 (Colace) 100 mg BID PO 10/28/16 21:00 (Lactulose Liq) 30 ml DAILY PRN PO 10/28/16 18:15 (Aldactone) 50 mg BID PO 10/28/16 21:00 (Albumin 25% Inj) 25 gm Q8HR IV 10/28/16 22:00 Family History He is unsure if he has had genetic testing. Social History Stopped drinking alcohol. Denies IVDU GI Exam Vitals I&O Vital Signs Date Time Temp Pulse Resp B/P Pulse Ox O2 Delivery O2 Flow Rate FiO2 10/28/16 16:00 96.7 73 18 123/63 98 10/28/16 12:00 98.2 75 17 125/73 98 10/28/16 08:00 97.5 71 17 122/63 97 10/28/16 00:00 99.0 80 20 128/74 95 10/27/16 23:15 98.9 79 20 131/77 97 10/27/16 20:00 98.8 79 20 131/78 96 I/O 10/27/16 10/27/16 10/27/16 10/28/16 10/28/16 10/28/16 07:00 15:00 23:00 07:00 15:00 23:00 Intake Total 639 ml 840 ml 280 ml 1392 ml Output Total 950 ml 2025 ml 2400 ml 4300 ml 1400 ml Balance -311 ml -1185 ml -2400 ml -4020 ml -8 ml Intake Oral 840 ml 280 ml 720 ml IV Total 639 ml 0 ml 672 ml Output Urine Total 350 ml 400 ml Drainage Total 950 ml 2025 ml 2400 ml 3950 ml 1000 ml # Voids 4 4 # Bowel Movements 0 0 Laboratory Date/Time Procedure Status Source Growth 10/26/16 22:10 Aerobic Blood Culture - Preliminary Resulted Blood Peripheral NO GROWTH IN 2 DAYS 10/26/16 22:10 Anaerobic Blood Culture - Preliminary Resulted Blood Peripheral NO GROWTH IN 2 DAYS Physical Examination HEENT: Pupils round and reactive to light; normocephalic; atraumatic; no jaundice. Throat is clear. NECK: Neck is supple, no JVD, no lymphadenopathy. CHEST: Chest is clear to auscultation and percussion. CARDIAC: Regular rate and rhythm with no murmur gallop or rubs. ABDOMEN: Soft, distended with fluid, nontender; bowel sounds are present in all four quadrants. Colostomy bag covers leaking umbilical hernia with an erosion on the skin. EXTREMITIES: No clubbing, cyanosis, or edema. SKIN: Normal; no rash; no jaundice. NURSES EDUCATOR: No focal deficits; alert and oriented times three. Assessment and Plan Plan Imp: Cirrhosis with Hemochromatosis. Ascites leaking. Possible HCC. Rec: Paracentesis with ultrasound guidance to remove as much fluid as possible. Support IV volume with albumin IV. Send fluid for cell count, culture, cytology and cell block. After abdominal fluid is gone, could consider percutaneous biopsy, Consider possible liver transplantation. Sebastian Mantilla MD October 28, 2016 19:56
[2016-10-28 20:00] VITALS: BP 124/64; PULSE 79; RESP 16; TEMP 97.7; O2SAT 97
[2016-10-28] MEDS: DOCUSATE SODIUM 100 MG CAP PO SCH (20:20)
[2016-10-28] MEDS: SPIRONOLACTONE 50 MG TAB PO SCH (20:20)
[2016-10-28 21:13] LABS: MEAN CORPUSCULAR HGB CONC 36.1 % (32.0-36.0)
[2016-10-28] MEDS: ALBUMIN HUMAN 25% 25 GM/100 ML BAGP IV SCH (21:38)
[2016-10-29] VITALS: BP 107/51; PULSE 80; RESP 16; TEMP 97.7; O2SAT 94
[2016-10-29] MEDS: ALBUMIN HUMAN 25% 25 GM/100 ML BAGP IV SCH ×3 (05:18→21:56)
[2016-10-29 05:49] LABS: AUTOMATED NEUTROPHIL # 2.5 TH/MM3 (1.8-7.7); BASOPHIL % 0.9 % (0.0-2.0); EOSINOPHIL # 0.2 TH/MM3 (0-0.4); EOSINOPHIL % 4.6 % (0.0-4.0); HEMATOCRIT 34.9 % (39.0-51.0); LYMPH % 16.8 % (9.0-44.0); LYMPHOCYTE # 0.7 TH/MM3 (1.0-4.8); MEAN CELL VOLUME 93.8 FL (80.0-100.0); MEAN CORPUSCULAR HEMOGLOBIN 33.8 PG (27.0-34.0); MONO % 17.5 % (0.0-8.0); NEUT % 60.2 % (16.0-70.0); PLATELET COUNT 60 TH/MM3 (150-450); RED BLOOD COUNT 3.72 MIL/MM3 (4.50-5.90); RED CELL DISTRIBUTION WIDTH 13.9 % (11.6-17.2); WHITE BLOOD COUNT 4.2 TH/MM3 (4.0-11.0)
[2016-10-29 05:54] LABS: HEMO FLAGS AUTO DIFF
[2016-10-29 05:57] LABS: APTT (PATIENT) 36.8 SEC (24.3-30.1); INTERNATIONAL NORMALIZED RATIO 1.4 RATIO; PROTHROMBIN TIME - PATIENT 15.4 SEC (9.8-11.6)
[2016-10-29 06:11] LABS: INDIRECT BILIRUBIN 1.2 MG/DL (0.0-0.8); POTASSIUM 4.2 MEQ/L (3.5-5.1); TOTAL BILIRUBIN ADULT 1.9 MG/DL (0.2-1.0)
[2016-10-29 07:56] LABS: PLATELET ESTIMATE SMEAR LOW (NORMAL); PLATELET MORPHOLOGY NORMAL (NORMAL); SCAN/DIFF AUTO DIFF CONFIRMED
[2016-10-29] MEDS: NADOLOL 20 MG TAB PO SCH (07:59)
[2016-10-29] MEDS: PANTOPRAZOLE SOD 20 MG DELAYED RELEASE TAB PO SCH (07:59)
[2016-10-29] MEDS: SPIRONOLACTONE 50 MG TAB PO SCH ×2 (07:59→21:56)
[2016-10-29] MEDS: LEVOFLOXACIN 500 MG TAB PO SCH (07:59)
[2016-10-29] MEDS: metFORMIN HCL 500 MG TAB PO SCH ×2 (07:59→17:31)
[2016-10-29] MEDS: DOCUSATE SODIUM 100 MG CAP PO SCH ×2 (07:59→21:00)
[2016-10-29 08:00] VITALS: BP 127/59; PULSE 76; RESP 17; TEMP 96.4; O2SAT 97
[2016-10-29] MEDS ORDERED: FUROSEMIDE 20 MG TAB PO SCH (09:00)
--- NOTE | 2016-10-29 11:18 | HHI.PR ---
Subjective Remarks Pt had about 1990cc of bloody ascites drain from the umbilical hernia yesterday and overnight. This morning he had about another 330cc drained. Pt still has not had a BM He does not seem to have good insight into the severity of his symptoms as he asked the same questions again today that he did last night and didn't really seem to understand the concern regarding HHC. Objective Vitals Vital Signs Date Time Temp Pulse Resp B/P Pulse Ox O2 Delivery O2 Flow Rate FiO2 10/29/16 08:00 96.4 76 17 127/59 97 10/29/16 00:00 97.7 80 16 107/51 94 10/28/16 20:00 97.7 79 16 124/64 97 10/28/16 16:00 96.7 73 18 123/63 98 10/28/16 12:00 98.2 75 17 125/73 98 10/28/16 10/28/16 10/29/16 15:00 23:00 07:00 Intake Total 1392 ml 360 ml 440 ml Output Total 1400 ml 750 ml 840 ml Balance -8 ml -390 ml -400 ml Intake Oral 720 ml 360 ml 240 ml IV Total 672 ml 0 ml 200 ml Output Urine Total 400 ml 350 ml 250 ml Drainage Total 1000 ml 400 ml 590 ml # Bowel Movements 0 0 0 Result Diagram: 10/29/16 0449 10/29/16 0449 Other Results Laboratory Tests Test 10/29/16 04:49 White Blood Count 4.2 TH/MM3 Red Blood Count 3.72 MIL/MM3 Hemoglobin 12.6 GM/DL Hematocrit 34.9 % Mean Corpuscular Volume 93.8 FL Mean Corpuscular Hemoglobin 33.8 PG Mean Corpuscular Hemoglobin 36.1 % Concent Red Cell Distribution Width 13.9 % Platelet Count 60 TH/MM3 Mean Platelet Volume 9.2 FL Neutrophils (%) (Auto) 60.2 % Lymphocytes (%) (Auto) 16.8 % Monocytes (%) (Auto) 17.5 % Eosinophils (%) (Auto) 4.6 % Basophils (%) (Auto) 0.9 % Neutrophils # (Auto) 2.5 TH/MM3 Lymphocytes # (Auto) 0.7 TH/MM3 Monocytes # (Auto) 0.7 TH/MM3 Eosinophils # (Auto) 0.2 TH/MM3 Basophils # (Auto) 0.0 TH/MM3 CBC Comment AUTO DIFF Differential Comment AUTO DIFF CONFIRMED Platelet Estimate LOW Platelet Morphology Comment NORMAL Prothrombin Time 15.4 SEC Prothromb Time International 1.4 RATIO Ratio Activated Partial 36.8 SEC Thromboplast Time Sodium Level 132 MEQ/L Potassium Level 4.2 MEQ/L Chloride Level 98 MEQ/L Carbon Dioxide Level 24.0 MEQ/L Anion Gap 10 MEQ/L Blood Urea Nitrogen 17 MG/DL Creatinine 0.90 MG/DL Estimat Glomerular Filtration 86 ML/MIN Rate Random Glucose 96 MG/DL Calcium Level 8.9 MG/DL Total Bilirubin 1.9 MG/DL Direct Bilirubin 0.7 MG/DL Indirect Bilirubin 1.2 MG/DL Aspartate Amino Transf 54 U/L (AST/SGOT) Alanine Aminotransferase 35 U/L (ALT/SGPT) Alkaline Phosphatase 131 U/L Total Protein 7.0 GM/DL Albumin 2.9 GM/DL Tumor Marker Alpha Fetoprotein 9.4 NG/ML Carcinoembryonic Antigen 27.9 NG/ML Objective Remarks General: NAD, AAOx3 Chest: CTA Cardiac: Regular Abd: +BS, soft ulcerated umbilical hernia with bloody ascetic fluid draining Ext: No edema A/P Problem List: (1) Liver cirrhosis Status: Chronic Plan: - Pt is a 61 y/o male with hepatic cirrhosis, esophageal varices, hx of regular alcohol use (none since 06/2016) and hereditary hemochromatosis. - He presented to [facility] [place]- due to bloody drainage from his umbilical hernia. - Pt has known liver cirrhosis and more recently has required frequent large volume paracentesis. - His last therapeutic paracentesis was on 10/22/16 with removal of 15,300cc of blood tinged ascetic fluid. - Pt was not on any diuretic therapy prior to admission. - As an outpt pt was seen by Dr. Ventura (Oncology) in September 2016 for followup for hemochromatosis and concern for hepatocellular carcinoma with report of MRI imaging abnormalities suggesting enlarging hepatic lesions from 08/20/2016. His AFP 9.5 on 09/22/2016. Because of significant risks associated with liver biopsy, PET/CT scan was ordered in lieu, which was completed on 10/07/2016 and per outpt records this demonstrated a 4.1 x 4.0 cm mass along the inferior aspect right lobe with low grade uptake concerning for malignancy. - General Surgery is planned to evaluate the pt today but not clear what they will be able to do regarding this hernia. - Pt has been started on Aldactone 25mg po daily on 10/27. This was increased to 50mg po BID on 10/28. BP stable currently. - Appreciate GI consultation. - GI recommended large volume paracentesis and fluid analysis. This will be ordered for today. - Pt is getting IV Albumin Q8H - Monitor output from draining ascetic fluid. - Await Oncology consultation. (2) Recurrent umbilical hernia Status: Chronic Plan: - See above. (3) Ascites Status: Chronic Plan: - See above. - Likely assoc with multifactorial cirrhosis, related to hemochromatosis and hx of alcohol use. - No signs of infectious process. (4) Hemochromatosis Status: Chronic Plan: - s/p multiple phlebotomies. - Outpt imaging does not indicate iron deposition in liver at this point. - Most recent labs on 09/22/16 with Ferritin 71, Serum iron 122, TIBC 175, %sat 69.7 (5) Chronic GERD Status: Chronic Plan: - Continue PPI (6) Hyperglycemia Status: Chronic Plan: - He has type 2 diabetes managed with metformin, without any history of nephropathy, neuropathy or retinopathy. - Hgb A1c is 5.4%. - Continue metformin for now. - DM diet. Assessment and Plan Patient examined. Assessment and plan formulated with Louisa Ga PA-C. I agree with the above. hemachromatosis with cirrhosis. bloody ascites. might have HCC. open abdomen wound and draining ascites. cont aldactone and monitor bp and cr/gfr. surgery unable to close until abdomen ascites better. also await cytology and if non diagnostic then liver bx. Problem Qualifiers (1) Ascites: Qualified Code: R18.8 - Other ascites Louisa Ga October 29, 2016 11:18 Angel Kolb MD October 29, 2016 15:03
[2016-10-29 12:00] VITALS: BP 129/63; PULSE 74; RESP 18; TEMP 96.6; O2SAT 97
--- NOTE | 2016-10-29 12:24 | PD.PN.STU ---
Subjective Remarks Patient is a 61 year old man with history of hemochromatosis, cirrhosis, and ascites who presented to the ED 10/26 with drainage from a recurrent umbilical hernia. He has a collection bag attached accumulating bloody tinged serous discharge from the hernia. His last therapeutic paracentesis was 10/22 with removal of 15,300 cc of fluid. He has no acute complaints today. Says he is able to walk around on his own. Objective Vitals GENERAL: This is a pleasant, thin, well-developed patient who appears his stated age. He is alert/awake/oriented x3. He does not appear to be in acute distress. SKIN: Mild jaundice. Skin is cool to touch. HEAD: Atraumatic. Normocephalic. Does have temporal wasting. EYES: EOM intact. Minimal scleral icterus. NECK: Trachea midline. No JVD or lymphadenopathy. Supple, nontender, no meningeal signs. CARDIOVASCULAR: S1S2, RRR, no murmurs appreciated. RESPIRATORY: CTA bilaterally GASTROINTESTINAL: Abdomen soft, non-tender, distended but not tense. Liver able to palpate below the costal margin and is firm. Midline palpable mass in the supraumbilical area. Bowel sounds normal. Large umbilical hernia with bandaging and collection bag attached accumulating bloody tinged serous discharge. MUSCULOSKELETAL: No calf tenderness or edema present in legs. Vital Signs Date Time Temp Pulse Resp B/P Pulse Ox O2 Delivery O2 Flow Rate FiO2 10/29/16 08:00 96.4 76 17 127/59 97 10/29/16 00:00 97.7 80 16 107/51 94 10/28/16 20:00 97.7 79 16 124/64 97 10/28/16 16:00 96.7 73 18 123/63 98 I/O 10/28/16 10/28/16 10/28/16 10/29/16 10/29/16 10/29/16 07:00 15:00 23:00 07:00 15:00 23:00 Intake Total 280 ml 1392 ml 360 ml 440 ml Output Total 4300 ml 1400 ml 750 ml 840 ml Balance -4020 ml -8 ml -390 ml -400 ml Intake Oral 280 ml 720 ml 360 ml 240 ml IV Total 0 ml 672 ml 0 ml 200 ml Output Urine Total 350 ml 400 ml 350 ml 250 ml Drainage Total 3950 ml 1000 ml 400 ml 590 ml # Voids 4 # Bowel Movements 0 0 0 0 Result Diagram: 10/29/169 10/29/169 A/P Assessment and Plan (1) Liver cirrhosis Plan: Due to hemochromatosis. Patient has known liver cirrhosis and more recently has required frequent large volume paracentesis. His last therapeutic paracentesis was on 10/22/16 with removal of 15,300cc of blood tinged ascetic fluid. AFP: 9.4 CEA: 27.9 Concerning for hepatocellular carcinoma Continue therapeutic paracentesis Biopsy of liver when surgery is comfortable with this Most likely will ultimately need liver transplant (2) Recurrent umbilical hernia Plan: Surgery is following. (3) Ascites Plan: Related to hemochromatosis, cirrhosis, alcohol abuse Continue therapeutic paracentesis (4) Hemochromatosis Plan: Phlebotomies. Most recent labs on 09/22/16 with Ferritin 71, Serum iron 122, TIBC 175, %sat 69.7 Michael Lino October 29, 2016 12:21
[2016-10-29 16:00] VITALS: BP 113/56; PULSE 75; RESP 17; TEMP 96.7; O2SAT 97
--- NOTE | 2016-10-29 16:22 | HHI.GIFU ---
Subjective Remarks Pt resting comfortably in bed. Denies diarrhea, n/v, abd pain. Objective Vitals I&O Vital Signs Date Time Temp Pulse Resp B/P Pulse Ox O2 Delivery O2 Flow Rate FiO2 10/29/16 12:00 96.6 74 18 129/63 97 10/29/16 08:00 96.4 76 17 127/59 97 10/29/16 00:00 97.7 80 16 107/51 94 10/28/16 20:00 97.7 79 16 124/64 97 I/O 10/28/16 10/28/16 10/28/16 10/29/16 10/29/16 10/29/16 07:00 15:00 23:00 07:00 15:00 23:00 Intake Total 280 ml 1392 ml 360 ml 440 ml 360 ml Output Total 4300 ml 1400 ml 750 ml 840 ml 1150 ml Balance -4020 ml -8 ml -390 ml -400 ml -790 ml Intake Oral 280 ml 720 ml 360 ml 240 ml 360 ml IV Total 0 ml 672 ml 0 ml 200 ml Output Urine Total 350 ml 400 ml 350 ml 250 ml 500 ml Drainage Total 3950 ml 1000 ml 400 ml 590 ml 650 ml # Voids 4 # Bowel Movements 0 0 0 0 2 Laboratory Laboratory Tests Test 10/29/16 04:49 White Blood Count 4.2 Red Blood Count 3.72 Hemoglobin 12.6 Hematocrit 34.9 Mean Corpuscular Volume 93.8 Mean Corpuscular Hemoglobin 33.8 Mean Corpuscular Hemoglobin 36.1 Concent Red Cell Distribution Width 13.9 Platelet Count 60 Mean Platelet Volume 9.2 Neutrophils (%) (Auto) 60.2 Lymphocytes (%) (Auto) 16.8 Monocytes (%) (Auto) 17.5 Eosinophils (%) (Auto) 4.6 Basophils (%) (Auto) 0.9 Neutrophils # (Auto) 2.5 Lymphocytes # (Auto) 0.7 Monocytes # (Auto) 0.7 Eosinophils # (Auto) 0.2 Basophils # (Auto) 0.0 CBC Comment AUTO DIFF Differential Comment AUTO DIFF CONFIRMED Platelet Estimate LOW Platelet Morphology Comment NORMAL Prothrombin Time 15.4 Prothromb Time International 1.4 Ratio Activated Partial 36.8 Thromboplast Time Sodium Level 132 Potassium Level 4.2 Chloride Level 98 Carbon Dioxide Level 24.0 Anion Gap 10 Blood Urea Nitrogen 17 Creatinine 0.90 Estimat Glomerular Filtration 86 Rate Random Glucose 96 Calcium Level 8.9 Total Bilirubin 1.9 Direct Bilirubin 0.7 Indirect Bilirubin 1.2 Aspartate Amino Transf 54 (AST/SGOT) Alanine Aminotransferase 35 (ALT/SGPT) Alkaline Phosphatase 131 Total Protein 7.0 Albumin 2.9 Tumor Marker Alpha Fetoprotein 9.4 Carcinoembryonic Antigen 27.9 Date/Time Procedure Status Source Growth 10/26/16 22:10 Aerobic Blood Culture - Preliminary Resulted Blood Peripheral NO GROWTH IN 3 DAYS 10/26/16 22:10 Anaerobic Blood Culture - Preliminary Resulted Blood Peripheral NO GROWTH IN 3 DAYS Physical Exam HEENT: EOMI; normocephalic; atraumatic; no jaundice. CHEST: CTA CARDIAC: RRR ABDOMEN: Soft, distended, nontender; bowel sounds are present in all four quadrants, colostomy bag attached to umbilicus draining red tinged fluid. EXTREMITIES: No clubbing, cyanosis, or edema. SKIN: Normal; no rash; no jaundice. EMERGENCY CARE ATTENDANT: No focal deficits; alert and oriented times three. Assessment and Plan Plan ASSESSMENT - Cirrhosis with Hemochromatosis. Ascites leaking. Possible HCC. AFP 9.4, CEA 27.9. per EMR nearly 2L drained from ublicus last night, 330cc this morning. US pending, per pt he was told insufficient pocket fluid to drain so no paracentesis. Pt may need liver bx. GS following. Fluid sent for cytology- pending PLAN - Support IV volume with albumin IV. - await fluid cytology - could consider liver transplant - consider liver bx This pt seen by myself and Dr Mantilla and this note is written on his behalf. Jasmin Vasquez October 29, 2016 16:22
--- NOTE | 2016-10-29 16:55 | RADRPT ---
EXAM DATE/TIME: 10/29/2016 14:36 [place] COMPARISON: No previous studies available for comparison. INDICATIONS : Evaluate for ascites. MEDICAL HISTORY : Hypertension. Gastroesophageal reflux disease. Asthma. Liver failure. Hemachromatosis. Diabetic. SURGICAL HISTORY : Hernia repair. Colonoscopy. ENCOUNTER: Sequela ACUITY: 3 days PAIN SCORE: 2/10 LOCATION: Four quadrant. AREA EVALUATED: FOUR QUADRANT. FINDINGS: There is no significant ascites because the patient is decompressed through the umbilical hernia. CONCLUSION: No significant ascites as described above. Aryan Macias MD FACR on October 29, 2016 at 16:52 Board Certified Radiologist. This report was verified electronically.
[2016-10-29 20:00] VITALS: BP 121/59; PULSE 82; RESP 18; TEMP 96; O2SAT 97
[2016-10-29 21:12] LABS: MEAN CORPUSCULAR HGB CONC 36.2 % (32.0-36.0)
[2016-10-29 23:55] VITALS: BP 107/51; PULSE 80; RESP 16; TEMP 98.2; O2SAT 98
[2016-10-30 06:09] LABS: AUTOMATED NEUTROPHIL # 4.3 TH/MM3 (1.8-7.7); BASOPHIL % 0.4 % (0.0-2.0); EOSINOPHIL # 0.2 TH/MM3 (0-0.4); EOSINOPHIL % 3.2 % (0.0-4.0); HEMATOCRIT 35.7 % (39.0-51.0); LYMPH % 9.1 % (9.0-44.0); LYMPHOCYTE # 0.6 TH/MM3 (1.0-4.8); MEAN CELL VOLUME 93.8 FL (80.0-100.0); MEAN CORPUSCULAR HEMOGLOBIN 33.9 PG (27.0-34.0); MONO % 15.7 % (0.0-8.0); NEUT % 71.6 % (16.0-70.0); PLATELET COUNT 61 TH/MM3 (150-450); RED BLOOD COUNT 3.81 MIL/MM3 (4.50-5.90); RED CELL DISTRIBUTION WIDTH 14.2 % (11.6-17.2); WHITE BLOOD COUNT 6.1 TH/MM3 (4.0-11.0)
[2016-10-30 06:21] LABS: INTERNATIONAL NORMALIZED RATIO 1.4 RATIO; PROTHROMBIN TIME - PATIENT 15.9 SEC (9.8-11.6)
[2016-10-30] MEDS: ALBUMIN HUMAN 25% 25 GM/100 ML BAGP IV SCH ×3 (06:23→20:38)
[2016-10-30 06:25] LABS: HEMO FLAGS AUTO DIFF
[2016-10-30 06:52] LABS: ALKALINE PHOSPHATASE 113 U/L (45-117); ALT (GPT) 32 U/L (12-78); ANION GAP 10 MEQ/L (5-15); AST (GOT) 51 U/L (15-37); BICARBONATE 23.4 MEQ/L (21.0-32.0); BLOOD UREA NITROGEN 15 MG/DL (7-18); CHLORIDE 96 MEQ/L (98-107); GLOMERULAR FILTRATION RATE 113 ML/MIN (>89); POTASSIUM 4.5 MEQ/L (3.5-5.1); SODIUM (NA) 129 MEQ/L (136-145); TOTAL BILIRUBIN ADULT 2.4 MG/DL (0.2-1.0)
[2016-10-30 08:00] VITALS: BP 134/64; PULSE 85; RESP 16; TEMP 98.1; O2SAT 97
[2016-10-30] MEDS: DOCUSATE SODIUM 100 MG CAP PO SCH ×3 (08:08→20:38)
[2016-10-30] MEDS: PANTOPRAZOLE SOD 20 MG DELAYED RELEASE TAB PO SCH (08:08)
[2016-10-30] MEDS: NADOLOL 20 MG TAB PO SCH (08:08)
[2016-10-30] MEDS: metFORMIN HCL 500 MG TAB PO SCH ×2 (08:09→18:20)
[2016-10-30] MEDS: SPIRONOLACTONE 50 MG TAB PO SCH ×2 (08:09→20:37)
[2016-10-30] MEDS: LEVOFLOXACIN 500 MG TAB PO SCH (08:09)
--- NOTE | 2016-10-30 09:43 | HHI.PR ---
Subjective Remarks Pt still having active drainage from the umbilicus. Spoke with IR, Dr. Aryan Macias, last night who reports that there is no ascites to drain from his abdomen as he is actively draining from the umbilicus, about 1330cc overnight. Afebrile Objective Vitals Vital Signs Date Time Temp Pulse Resp B/P Pulse Ox O2 Delivery O2 Flow Rate FiO2 10/30/16 08:00 98.1 85 16 134/64 97 10/29/16 23:55 98.2 80 16 107/51 98 10/29/16 20:00 96.0 82 18 121/59 97 10/29/16 16:00 96.7 75 17 113/56 97 10/29/16 12:00 96.6 74 18 129/63 97 10/29/16 10/29/16 10/30/16 15:00 23:00 07:00 Intake Total 360 ml 480 ml 280 ml Output Total 1150 ml 1000 ml Balance -790 ml -520 ml 280 ml Intake Oral 360 ml 480 ml 280 ml IV Total 0 ml Output Urine Total 500 ml Drainage Total 650 ml 1000 ml # Bowel Movements 2 Result Diagram: 10/30/16 0541 10/30/16 0541 Other Results Laboratory Tests Test 10/29/16 10/30/16 04:49 05:41 White Blood Count 4.2 TH/MM3 6.1 TH/MM3 Red Blood Count 3.72 MIL/MM3 3.81 MIL/MM3 Hemoglobin 12.6 GM/DL 12.9 GM/DL Hematocrit 34.9 % 35.7 % Mean Corpuscular Volume 93.8 FL 93.8 FL Mean Corpuscular Hemoglobin 33.8 PG 33.9 PG Mean Corpuscular Hemoglobin 36.1 % 36.2 % Concent Red Cell Distribution Width 13.9 % 14.2 % Platelet Count 60 TH/MM3 61 TH/MM3 Mean Platelet Volume 9.2 FL 9.3 FL Neutrophils (%) (Auto) 60.2 % 71.6 % Lymphocytes (%) (Auto) 16.8 % 9.1 % Monocytes (%) (Auto) 17.5 % 15.7 % Eosinophils (%) (Auto) 4.6 % 3.2 % Basophils (%) (Auto) 0.9 % 0.4 % Neutrophils # (Auto) 2.5 TH/MM3 4.3 TH/MM3 Lymphocytes # (Auto) 0.7 TH/MM3 0.6 TH/MM3 Monocytes # (Auto) 0.7 TH/MM3 0.9 TH/MM3 Eosinophils # (Auto) 0.2 TH/MM3 0.2 TH/MM3 Basophils # (Auto) 0.0 TH/MM3 0.0 TH/MM3 CBC Comment AUTO DIFF AUTO DIFF Differential Comment AUTO DIFF CONFIRMED Platelet Estimate LOW Platelet Morphology Comment NORMAL Prothrombin Time 15.4 SEC 15.9 SEC Prothromb Time International 1.4 RATIO 1.4 RATIO Ratio Activated Partial 36.8 SEC Thromboplast Time Sodium Level 132 MEQ/L 129 MEQ/L Potassium Level 4.2 MEQ/L 4.5 MEQ/L Chloride Level 98 MEQ/L 96 MEQ/L Carbon Dioxide Level 24.0 MEQ/L 23.4 MEQ/L Anion Gap 10 MEQ/L 10 MEQ/L Blood Urea Nitrogen 17 MG/DL 15 MG/DL Creatinine 0.90 MG/DL 0.71 MG/DL Estimat Glomerular Filtration 86 ML/MIN 113 ML/MIN Rate Random Glucose 96 MG/DL 109 MG/DL Calcium Level 8.9 MG/DL 9.7 MG/DL Total Bilirubin 1.9 MG/DL 2.4 MG/DL Direct Bilirubin 0.7 MG/DL Indirect Bilirubin 1.2 MG/DL Aspartate Amino Transf 54 U/L 51 U/L (AST/SGOT) Alanine Aminotransferase 35 U/L 32 U/L (ALT/SGPT) Alkaline Phosphatase 131 U/L 113 U/L Total Protein 7.0 GM/DL 7.2 GM/DL Albumin 2.9 GM/DL 3.6 GM/DL Tumor Marker Alpha Fetoprotein 9.4 NG/ML Carcinoembryonic Antigen 27.9 NG/ML Imaging Last Impressions Abdomen Ultrasound 10/29/16 0000 Signed Impressions: Service Date/Time: Saturday, October 29, 2016 14:36 - CONCLUSION: No significant ascites as described above. Aryan Macias MD FACR Objective Remarks General: NAD, AAOx3 Chest: CTA Cardiac: Regular Abd: +BS, soft ulcerated umbilical hernia with bloody ascetic fluid draining Ext: No edema A/P Problem List: (1) Liver cirrhosis Status: Chronic Plan: - Pt is a 61 y/o male with hepatic cirrhosis, esophageal varices, hx of regular alcohol use (none since 06/2016) and hereditary hemochromatosis. - He presented [place] [facility] [place] [facility] [place] due to bloody drainage from his umbilical hernia. - Pt has known liver cirrhosis and more recently has required frequent large volume paracentesis. - His last therapeutic paracentesis was on 10/22/16 with removal of 15,300cc of blood tinged ascetic fluid. - Pt was not on any diuretic therapy prior to admission. - As an outpt pt was seen by Dr. Ventura (Oncology) in September 2016 for followup for hemochromatosis and concern for hepatocellular carcinoma with report of MRI imaging abnormalities suggesting enlarging hepatic lesions from 08/20/2016. His AFP 9.5 on 09/22/2016. Because of significant risks associated with liver biopsy, PET/CT scan was ordered in lieu, which was completed on 10/07/2016 and per outpt records this demonstrated a 4.1 x 4.0 cm mass along the inferior aspect right lobe with low grade uptake concerning for malignancy. - General Surgery is planned to evaluate the pt today but not clear what they will be able to do regarding this hernia. - Pt has been started on Aldactone 25mg po daily on 10/27. This was increased to 50mg po BID on 10/28. BP stable currently. - Appreciate GI consultation. - Spoke with IR, Dr. Aryan Macias, last night who reports that there is no ascites to drain from his abdomen as he is actively draining from the umbilicus, about 1330cc overnight. - Pt is getting IV Albumin Q8H - Monitor output from draining ascetic fluid. - Cont. Aldactone, monitor BP - Await Oncology consultation. - AFP: 9.4, CEA: 27.9 - Await cytology from peritoneal fluid and if nondiagnostic then consider liver biopsy (2) Recurrent umbilical hernia Status: Chronic Plan: - See above. (3) Ascites Status: Chronic Plan: - See above. - Likely assoc with multifactorial cirrhosis, related to hemochromatosis and hx of alcohol use. - No signs of infectious process. (4) Hemochromatosis Status: Chronic Plan: - s/p multiple phlebotomies. - Outpt imaging does not indicate iron deposition in liver at this point. - Most recent labs on 09/22/16 with Ferritin 71, Serum iron 122, TIBC 175, %sat 69.7 (5) Chronic GERD Status: Chronic Plan: - Continue PPI (6) Hyperglycemia Status: Chronic Plan: - He has type 2 diabetes managed with metformin, without any history of nephropathy, neuropathy or retinopathy. - Hgb A1c is 5.4%. - Continue metformin for now. - DM diet. Assessment and Plan Patient examined. Assessment and plan formulated with Louisa Ga PA-C. I agree with the above. cirrhosis. hemachromatosis. liver mass. probably HCC. hernia with open abdomen wound draining peritoneal fluid. overall less drainage. we are trying iv albumen with titration up of diuretics. hopefully lower ascites output enough to close the wound. Closure not an option now per surgery. await cytology. this pt will need transplant eval but not to 6m olive from etoh cessation. monitor renal function. Problem Qualifiers (1) Ascites: Qualified Code: R18.8 - Other ascites Louisa Ga October 30, 2016 09:43 Angel Kolb MD October 30, 2016 19:54
--- NOTE | 2016-10-30 09:51 | PD.PN.STU ---
Subjective Remarks Pt had 400cc of blood tinged ascitic fluid drain overnight into this morning. Did not have paracentesis yesterday as ultrasound did not show significant ascites. He is resting comfortably in bed. Reports no complaints. Objective Vitals General: pleasant gentleman who appears stated age, alert/awake/oriented x3, does not appear to be in distress Chest: CTA bilaterally, no accessory muscle use Cardiac: S1S2, RRR, no murmurs appreciated, no JVD Abd: soft, didtended, nontender, bowel sounds present in all four quadrants, soft ulcerated umbilical hernia with bloody ascetic fluid draining MSK: no edema Vital Signs Date Time Temp Pulse Resp B/P Pulse Ox O2 Delivery O2 Flow Rate FiO2 10/30/16 08:00 98.1 85 16 134/64 97 10/29/16 23:55 98.2 80 16 107/51 98 10/29/16 20:00 96.0 82 18 121/59 97 10/29/16 16:00 96.7 75 17 113/56 97 10/29/16 12:00 96.6 74 18 129/63 97 I/O 10/29/16 10/29/16 10/29/16 10/30/16 10/30/16 10/30/16 07:00 15:00 23:00 07:00 15:00 23:00 Intake Total 440 ml 360 ml 480 ml 280 ml 200 ml Output Total 840 ml 1150 ml 1000 ml 350 ml Balance -400 ml -790 ml -520 ml 280 ml -150 ml Intake Oral 240 ml 360 ml 480 ml 280 ml IV Total 200 ml 0 ml 200 ml Output Urine Total 250 ml 500 ml Drainage Total 590 ml 650 ml 1000 ml 350 ml # Bowel Movements 0 2 Result Diagram: 10/30/16 0541 10/30/16 0541 A/P Assessment and Plan (1) Liver cirrhosis Plan: Due to hemochromatosis Patient has known liver cirrhosis and more recently has required frequent large volume paracentesis. His last therapeutic paracentesis was on 10/22/16 with removal of 15,300cc of blood tinged ascetic fluid. AFP: 9.4 CEA: 27.9 Concerning for hepatocellular carcinoma Still awaiting cytology results Biopsy if cytology is nondiagnostic Most likely will ultimately need liver transplant (2) Recurrent umbilical hernia Plan: Surgery is following. HollandMichael rawls October 30, 2016 09:51
[2016-10-30 11:49] LABS: PLATELET ESTIMATE SMEAR LOW (NORMAL); PLATELET MORPHOLOGY NORMAL (NORMAL); SCAN/DIFF AUTO DIFF CONFIRMED
[2016-10-30 12:00] VITALS: BP 113/60; PULSE 75; RESP 17; TEMP 98.8; O2SAT 100
--- NOTE | 2016-10-30 14:57 | HHI.GIFU ---
Subjective Remarks Resting in bed. No n/v. Ascitic drainage from umbilical hernia. No fevers. Objective Vitals I&O Vital Signs Date Time Temp Pulse Resp B/P Pulse Ox O2 Delivery O2 Flow Rate FiO2 10/30/16 12:00 98.8 75 17 113/60 100 10/30/16 08:00 98.1 85 16 134/64 97 10/29/16 23:55 98.2 80 16 107/51 98 10/29/16 20:00 96.0 82 18 121/59 97 10/29/16 16:00 96.7 75 17 113/56 97 I/O 10/29/16 10/29/16 10/29/16 10/30/16 10/30/16 10/30/16 07:00 15:00 23:00 07:00 15:00 23:00 Intake Total 440 ml 360 ml 480 ml 280 ml 200 ml Output Total 840 ml 1150 ml 1000 ml 350 ml Balance -400 ml -790 ml -520 ml 280 ml -150 ml Intake Oral 240 ml 360 ml 480 ml 280 ml IV Total 200 ml 0 ml 200 ml Output Urine Total 250 ml 500 ml Drainage Total 590 ml 650 ml 1000 ml 350 ml # Bowel Movements 0 2 Laboratory Laboratory Tests Test 10/30/16 05:41 White Blood Count 6.1 Red Blood Count 3.81 Hemoglobin 12.9 Hematocrit 35.7 Mean Corpuscular Volume 93.8 Mean Corpuscular Hemoglobin 33.9 Mean Corpuscular Hemoglobin 36.2 Concent Red Cell Distribution Width 14.2 Platelet Count 61 Mean Platelet Volume 9.3 Neutrophils (%) (Auto) 71.6 Lymphocytes (%) (Auto) 9.1 Monocytes (%) (Auto) 15.7 Eosinophils (%) (Auto) 3.2 Basophils (%) (Auto) 0.4 Neutrophils # (Auto) 4.3 Lymphocytes # (Auto) 0.6 Monocytes # (Auto) 0.9 Eosinophils # (Auto) 0.2 Basophils # (Auto) 0.0 CBC Comment AUTO DIFF Differential Comment AUTO DIFF CONFIRMED Platelet Estimate LOW Platelet Morphology Comment NORMAL Red Cell Morphology Comment NORMAL Prothrombin Time 15.9 Prothromb Time International 1.4 Ratio Sodium Level 129 Potassium Level 4.5 Chloride Level 96 Carbon Dioxide Level 23.4 Anion Gap 10 Blood Urea Nitrogen 15 Creatinine 0.71 Estimat Glomerular Filtration 113 Rate Random Glucose 109 Calcium Level 9.7 Total Bilirubin 2.4 Aspartate Amino Transf 51 (AST/SGOT) Alanine Aminotransferase 32 (ALT/SGPT) Alkaline Phosphatase 113 Total Protein 7.2 Albumin 3.6 Date/Time Procedure Status Source Growth 10/26/16 22:10 Aerobic Blood Culture - Preliminary Resulted Blood Peripheral NO GROWTH IN 4 DAYS 10/26/16 22:10 Anaerobic Blood Culture - Preliminary Resulted Blood Peripheral NO GROWTH IN 4 DAYS Imaging Last Impressions Abdomen Ultrasound 10/29/16 0000 Signed Impressions: Service Date/Time: Saturday, October 29, 2016 14:36 - CONCLUSION: No significant ascites as described above. Aryan Macias MD FACR Physical Exam HEENT: EOMI; normocephalic; atraumatic; no jaundice. CHEST: CTA CARDIAC: RRR ABDOMEN: Soft, distended, nontender; bowel sounds are present in all four quadrants, colostomy bag attached to umbilicus draining red tinged fluid. EXTREMITIES: No clubbing, cyanosis, or edema. SKIN: Normal; no rash; no jaundice. LPTA: No focal deficits; alert and oriented times three. Assessment and Plan Plan ASSESSMENT - Liver Cirrhosis with Hemochromatosis and past ETOH use. He was diagnosed with hemochromatosis at age 34 and has been treated with multiple phlebotomies in the past. He continued to drink ETOH until July 102016. He now abstains from ETOH. He cannot tell me exactly when he was diagnosed with liver cirrhosis and states that he has "never been formally diagnosed," however, he does report that he was told at age 38 that he had scarring on his liver. Unfortunately, much of his workup was at another facility and I do not have records to this. Will get liver workup, in case [facility] agrees to see him for transplant evaluation. T. Bili 2.4 , AST 51, ALT 32, 113. - Liver mass, possible hepatocellular carcinoma. MRI (08/20/16)---> There are 2 very small hypervascular lesions within the dome of the liver. These are not seen on the dealyed imaging with EOVIST. THe hypervascular enhancement is somewhat concerning. They are too small to biopsy and their location would make biopsy extremely difficult. FU MR in 6 months to ensure stability is warranted. Malignancy is not definitely excluded. 3.4 x 3.3 cm area of decreased contrast enhancement along the right lobe of the liver inferiorly probably representing a regenerating nodule. Splenomegaly with ascites and cirrhosis consistent with portal hypertension. There is a history of hemochromatosis however, there is no significant signal dropout within the liver on vamsi T2 weighted axial imaging. This would suggest there is no significant iron deposition within the liver at this time. PET Scan (10/07/16)---> demonstrated a 4.1 x 4.0 mass along the inferior aspect right lobe with low uptake concerning for malignancy. AFP 9.4 CEA 27.9. - Recurrent Ascites. Pt has been getting paracentesis, but has not been medically optimized and has not been on diuretics at home. He has an umbilical hernia with significant ascitic leak due to erosion of his umbilical skin. He is being followed by [facility], but there are no current plans for surgical intervention secondary to the significant ascitic leak which would erode any attempted repair of the hernia and/or skin. Lasix 20mg po BID. Albumin 25gm IV q8h, Spironolactone 50mg po BID. Cytology from October 29 US pending. Still draining 350cc - Anemia. Mild 12.9, 35.7. EGD (05/2015)----> Jones's esophagus, gastritis , normal duodenum. Colonoscopy (03/30/12)----> diverticulosis in sigmoid, dense with fibrosis and diverticulosis in descending, moderate. Small nonbleeding internal hemorrhoids. - Umbilical hernia. Followed by [facility]. No surgical plans until he is medically optimized with diuretics for his ascites. - Thrombocytopenia. Plt 61,000. - Hyponatremia, Asthma, HTN PLAN - Low sodium diet - Cont. Lasix - Cont. Spironolactone - Cont. Albumin - Await cytology - Monitor labs - ? Liver biopsy - Liver workup - Call placed to [facility] for possible transplant evaluation- Spoke to [facility]. Pt declined- state they will not consider transplant evaluation until patient has been alcohol free for 6 months- January 07 - Supportive care - Further recommendations to follow based on results of above - Pt seen and examined by Dr. Mantilla and myself and this note is written on his behalf Awilda Palmer October 30, 2016 14:57
[2016-10-30 16:00] VITALS: BP 112/58; PULSE 76; RESP 18; TEMP 98.7; O2SAT 97
[2016-10-30] MEDS: FUROSEMIDE 20 MG TAB PO SCH (18:20)
[2016-10-30 20:00] VITALS: BP 113/53; PULSE 72; RESP 18; TEMP 97.4; O2SAT 98
[2016-10-30 20:20] LABS: FERRITIN 87 NG/ML (26-388); TRANSFERRIN IRON PROFILE 75 MG/DL (200-360)
[2016-10-30 23:53] VITALS: BP 115/57; PULSE 84; RESP 17; TEMP 98.4; O2SAT 95
[2016-10-31] MEDS: ALBUMIN HUMAN 25% 25 GM/100 ML BAGP IV SCH ×3 (05:53→23:47)
[2016-10-31 06:28] LABS: BICARBONATE 23.6 MEQ/L (21.0-32.0); POTASSIUM 4.7 MEQ/L (3.5-5.1)
[2016-10-31] MEDS: SPIRONOLACTONE 50 MG TAB PO SCH ×2 (07:49→23:46)
[2016-10-31] MEDS: LEVOFLOXACIN 500 MG TAB PO SCH (07:50)
[2016-10-31] MEDS: FUROSEMIDE 20 MG TAB PO SCH (07:50)
[2016-10-31] MEDS: metFORMIN HCL 500 MG TAB PO SCH ×2 (07:50→18:27)
[2016-10-31] MEDS: PANTOPRAZOLE SOD 20 MG DELAYED RELEASE TAB PO SCH (07:50)
[2016-10-31] MEDS: NADOLOL 20 MG TAB PO SCH (07:50)
[2016-10-31] MEDS: DOCUSATE SODIUM 100 MG CAP PO SCH ×2 (07:50→23:46)
[2016-10-31 08:00] VITALS: BP 112/57; PULSE 76; RESP 17; TEMP 98; O2SAT 96
--- NOTE | 2016-10-31 09:26 | PD.PN.STU ---
Subjective Remarks Pt had 575cc of blood tinged fluid drain overnight. He is resting comfortably in bed. Reports no complaints. Had BM earlier this morning and is voiding without difficulty. Objective Vitals General: pleasant gentleman who appears stated age, alert/awake/oriented x3, does not appear to be in distress Chest: CTA bilaterally, no accessory muscle use Cardiac: S1S2, RRR, no murmurs appreciated, no JVD Abd: soft, distended, nontender, bowel sounds present in all four quadrants, soft ulcerated umbilical hernia with bloody ascetic fluid draining MSK: no edema Vital Signs Date Time Temp Pulse Resp B/P Pulse Ox O2 Delivery O2 Flow Rate FiO2 10/31/16 08:00 98.0 76 17 112/57 96 10/30/16 23:53 98.4 84 17 115/57 95 10/30/16 20:00 97.4 72 18 113/53 98 10/30/16 16:00 98.7 76 18 112/58 97 10/30/16 12:00 98.8 75 17 113/60 100 I/O 10/30/16 10/30/16 10/30/16 10/31/16 10/31/16 10/31/16 07:00 15:00 23:00 07:00 15:00 23:00 Intake Total 280 ml 680 ml 480 ml 480 ml Output Total 1325 ml 200 ml 375 ml Balance 280 ml -645 ml 280 ml 105 ml Intake Oral 280 ml 480 ml 480 ml 280 ml IV Total 200 ml 0 ml 200 ml Drainage Total 1325 ml 200 ml 375 ml # Voids 1 4 2 2 # Bowel Movements 0 1 Result Diagram: 10/30/16 0541 10/31/16 0529 A/P Assessment and Plan (1) Liver cirrhosis Plan: Due to hemochromatosis Patient has known liver cirrhosis and more recently has required frequent large volume paracentesis. His last therapeutic paracentesis was on 10/22/16 with removal of 15,300cc of blood tinged ascetic fluid. AFP: 9.4 CEA: 27.9 Concerning for hepatocellular carcinoma Still awaiting cytology results Biopsy if cytology is nondiagnostic Most likely will ultimately need liver transplant Drainage appears to be decreasing - 575cc overnight Responding well to Aldactone and Lasix therapy - will continue to monitor renal function closely (2) Recurrent umbilical hernia Plan: Surgery is following. They would like to see drainage around 500cc/day before considering operating. Michael Lino M3 October 31, 2016 09:26
--- NOTE | 2016-10-31 09:35 | HHI.PR ---
Subjective Subjective Notes The patient has no complaints other than being in the hospital. Objective Vitals/I&O Vital Signs Date Time Temp Pulse Resp B/P Pulse Ox O2 Delivery O2 Flow Rate FiO2 10/31/16 08:00 98.0 76 17 112/57 96 Labs Laboratory Tests Test 10/30/16 10/31/16 18:59 05:29 Iron Level 74 Total Iron Binding Capacity 105 Percent Iron Saturation 70.5 Ferritin 87 Sodium Level 129 Potassium Level 4.7 Chloride Level 96 Carbon Dioxide Level 23.6 Anion Gap 9 Blood Urea Nitrogen 17 Creatinine 0.82 Estimat Glomerular Filtration 96 Rate Random Glucose 85 Calcium Level 10.0 Date/Time Procedure Status Source Growth 10/26/16 22:10 Aerobic Blood Culture - Preliminary Resulted Blood Peripheral NO GROWTH IN 4 DAYS 10/26/16 22:10 Anaerobic Blood Culture - Preliminary Resulted Blood Peripheral NO GROWTH IN 4 DAYS Cardiovascular: Regular Lungs: Clear Abdomen: Non-distended, Non-tender, BS normal Narrative Exam The umbilical drainage persists with ascites. A/P Assessment and Plan Impression: Unfortunate man with near end-stage cirrhosis with a large amount of ascites. He also has an as yet undiagnosed tumor in the right lobe of the liver. Cytology is pending. The drainage of the ascites is controlled with the back at this point but he is still leaking almost 2 L per day. Plan: No surgical attempt at closure will be made until his ascites is under maximum medical control. The tumor seen in the right lobe of the liver will be further evaluated as he can tolerate it. General surgery will follow him peripherally at this point. Junior Parekh MD October 31, 2016 09:35
--- NOTE | 2016-10-31 10:21 | HHI.PR ---
Subjective Remarks No specific complaints this morning other than complaining about having to be in the hospital He is tolerating his diet. Bowels are moving normally Pt voiding normally Pt had out about 1900cc of bloody ascetic fluid yesterday and overnight. Afebrile. Objective Vitals Vital Signs Date Time Temp Pulse Resp B/P Pulse Ox O2 Delivery O2 Flow Rate FiO2 10/31/16 08:00 98.0 76 17 112/57 96 10/30/16 23:53 98.4 84 17 115/57 95 10/30/16 20:00 97.4 72 18 113/53 98 10/30/16 16:00 98.7 76 18 112/58 97 10/30/16 12:00 98.8 75 17 113/60 100 10/30/16 10/30/16 10/31/16 15:00 23:00 07:00 Intake Total 680 ml 480 ml 480 ml Output Total 1325 ml 200 ml 375 ml Balance -645 ml 280 ml 105 ml Intake Oral 480 ml 480 ml 280 ml IV Total 200 ml 0 ml 200 ml Drainage Total 1325 ml 200 ml 375 ml # Voids 4 2 2 # Bowel Movements 0 1 Result Diagram: 10/30/16 0541 10/31/16 0529 Other Results Laboratory Tests Test 10/30/16 10/30/16 10/31/16 05:41 18:59 05:29 White Blood Count 6.1 TH/MM3 Red Blood Count 3.81 MIL/MM3 Hemoglobin 12.9 GM/DL Hematocrit 35.7 % Mean Corpuscular Volume 93.8 FL Mean Corpuscular Hemoglobin 33.9 PG Mean Corpuscular Hemoglobin 36.2 % Concent Red Cell Distribution Width 14.2 % Platelet Count 61 TH/MM3 Mean Platelet Volume 9.3 FL Neutrophils (%) (Auto) 71.6 % Lymphocytes (%) (Auto) 9.1 % Monocytes (%) (Auto) 15.7 % Eosinophils (%) (Auto) 3.2 % Basophils (%) (Auto) 0.4 % Neutrophils # (Auto) 4.3 TH/MM3 Lymphocytes # (Auto) 0.6 TH/MM3 Monocytes # (Auto) 0.9 TH/MM3 Eosinophils # (Auto) 0.2 TH/MM3 Basophils # (Auto) 0.0 TH/MM3 CBC Comment AUTO DIFF Differential Comment AUTO DIFF CONFIRMED Platelet Estimate LOW Platelet Morphology Comment NORMAL Red Cell Morphology Comment NORMAL Prothrombin Time 15.9 SEC Prothromb Time International 1.4 RATIO Ratio Sodium Level 129 MEQ/L 129 MEQ/L Potassium Level 4.5 MEQ/L 4.7 MEQ/L Chloride Level 96 MEQ/L 96 MEQ/L Carbon Dioxide Level 23.4 MEQ/L 23.6 MEQ/L Anion Gap 10 MEQ/L 9 MEQ/L Blood Urea Nitrogen 15 MG/DL 17 MG/DL Creatinine 0.71 MG/DL 0.82 MG/DL Estimat Glomerular Filtration 113 ML/MIN 96 ML/MIN Rate Random Glucose 109 MG/DL 85 MG/DL Calcium Level 9.7 MG/DL 10.0 MG/DL Total Bilirubin 2.4 MG/DL Aspartate Amino Transf 51 U/L (AST/SGOT) Alanine Aminotransferase 32 U/L (ALT/SGPT) Alkaline Phosphatase 113 U/L Total Protein 7.2 GM/DL Albumin 3.6 GM/DL Iron Level 74 MCG/DL Total Iron Binding Capacity 105 MCG/DL Percent Iron Saturation 70.5 % Ferritin 87 NG/ML Hepatitis A IgM Antibody NEGATIVE Hepatitis B Surface Antigen NEGATIVE Hepatitis B Core IgM Antibody NEGATIVE Hepatitis C Antibody NEGATIVE Imaging Last Impressions Abdomen Ultrasound 10/29/16 0000 Signed Impressions: Service Date/Time: Saturday, October 29, 2016 14:36 - CONCLUSION: No significant ascites as described above. Aryan Macias MD FACR Objective Remarks General: NAD, AAOx3 Chest: CTA Cardiac: Regular Abd: +BS, soft ulcerated umbilical hernia with bloody ascetic fluid draining Ext: No edema A/P Problem List: (1) Liver cirrhosis Status: Chronic Plan: - Pt is a 61 y/o male with hepatic cirrhosis, esophageal varices, hx of regular alcohol use (none since 06/2016) and hereditary hemochromatosis. - He presented to [facility]- due to bloody drainage from his umbilical hernia. - Pt has known liver cirrhosis and more recently has required frequent large volume paracentesis. - His last therapeutic paracentesis was on 10/22/16 with removal of 15,300cc of blood tinged ascetic fluid. - Pt was not on any diuretic therapy prior to admission. - As an outpt pt was seen by Dr. Ventura (Oncology) in September 2016 for followup for hemochromatosis and concern for hepatocellular carcinoma with report of MRI imaging abnormalities suggesting enlarging hepatic lesions from 08/20/2016. His AFP 9.5 on 09/22/2016. Because of significant risks associated with liver biopsy, PET/CT scan was ordered in lieu, which was completed on 10/07/2016 and per outpt records this demonstrated a 4.1 x 4.0 cm mass along the inferior aspect right lobe with low grade uptake concerning for malignancy. - General Surgery is planned to evaluate the pt today but not clear what they will be able to do regarding this hernia. - Pt has been started on Aldactone 25mg po daily on 10/27. This was increased to 50mg po BID on 10/28. BP stable currently. - Lasix 20mg BID added on 10/30. - BP and renal function are stable currently. - Appreciate GI consultation. - Spoke with IR, Dr. Macias, who reports that there is no ascites to drain from his abdomen as he is actively draining from the umbilicus - Pt is getting IV Albumin Q8H - Monitor output from draining ascetic fluid. - Cont. Aldactone, lasix, and titrate up dose as BP and renal function will allow. - Await Oncology consultation. - AFP: 9.4, CEA: 27.9 - Await cytology from peritoneal fluid and if nondiagnostic then consider liver biopsy. Spoke with Pathology lab this morning and likely will not result until Thursday. (2) Recurrent umbilical hernia Status: Chronic Plan: - See above. (3) Ascites Status: Chronic Plan: - See above. - Likely assoc with multifactorial cirrhosis, related to hemochromatosis and hx of alcohol use. - No signs of infectious process. (4) Hemochromatosis Status: Chronic Plan: - s/p multiple phlebotomies. - Outpt imaging does not indicate iron deposition in liver at this point. - Most recent labs on 09/22/16 with Ferritin 71, Serum iron 122, TIBC 175, %sat 69.7 (5) Chronic GERD Status: Chronic Plan: - Continue PPI (6) Hyperglycemia Status: Chronic Plan: - He has type 2 diabetes managed with metformin, without any history of nephropathy, neuropathy or retinopathy. - Hgb A1c is 5.4%. - Continue metformin for now. - DM diet. Assessment and Plan Patient examined. Assessment and plan formulated with Louisa Ga PA-C. I agree with the above. cirrhosis. liver mass. probably HCC umbilical hernia eroded with external drainage. cont diuresis and monitor for reduced output. cont abx emperically for sbp. updated family Problem Qualifiers (1) Ascites: Qualified Code: R18.8 - Other ascites Louisa Ga October 31, 2016 10:21 Angel Kolb MD October 31, 2016 21:20
[2016-10-31 12:00] VITALS: BP 96/50; PULSE 73; RESP 18; TEMP 97.6; O2SAT 99
[2016-10-31 13:12] LABS: ANA SCREEN NEG (NEG)
--- NOTE | 2016-10-31 15:38 | MB ---
cc: JULES MCCABE MD, AMMAR WHITE, DONALD G. M.D. DATE OF CONSULTATION: 10/31/2016 DATE OF : 1955 REQUESTING PHYSICIAN: Hospitalist service. PRIMARY CARE PHYSICIAN Dr. Ronald Vanessa. REASON FOR CONSULTATION: Patient with hepatic mass concerning for hepatocellular carcinoma. He has underlying history of hepatic cirrhosis secondary to what appears to be combination of heavy alcohol consumption and hemochromatosis (hereditary). CHIEF COMPLAINT The patient reports having had "leakage of fluid from his belly button." HISTORY OF PRESENT ILLNESS Mr. Jackman is a 61-year-old man who was initially seen by me in mid September 2016 as an outpatient consultation. He was referred to hematology for further workup and management of a hepatic lesion noted on MRI. In the setting of hepatic cirrhosis the hepatic lesion was concerning for hepatocellular carcinoma. A PET CT scan was ordered on 10/07/2016 and imaging findings were again concerning for hepatocellular carcinoma given the hypermetabolic activity corresponding to the previously noted lesions within the right hepatic lobe of the liver. In addition to this the patient did have massive ascites. Two or three days ago the patient developed skin breakdown overlying a large umbilical hernia, the skin had eroded and as a result ascites fluid essentially drained health. He came into the hospital for further workup and evaluation. He presently has an ostomy bag over the eroded scan, the patient continues to ooze serosanguineous peritoneal fluid. The oncology service has been asked to see him for further workup and management for possible underlying diagnosis of hepatocellular carcinoma. Additionally, Mr. Jackman does have thrombocytopenia likely secondary to cirrhosis. PAST MEDICAL HISTORY 1. Hepatic cirrhosis. 2. Hemochromatosis 3. History of heavy alcohol abuse (he stopped drinking in June 2016). 4. Hepatic mass (EF) concerning for hepatocellular carcinoma. Asthma. 5. Ascites. PAST SURGICAL HISTORY Colonoscopy Hernia repair. Therapeutic paracentesis. FAMILY HISTORY Father had hemochromatosis and resultant hepatic cirrhosis. Mom is as well. She had a history of emphysema. SOCIAL HISTORY The patient is single, he is originally from [facility], he previously worked in [employer], he is currently disabled / retired. He reports being a heavy drinker in the past drinking up to three to four drinks a day every day the week. ALLERGIES NO KNOWN DRUG ALLERGIES. MEDICATIONS 1. Albumin 25% / 25 grams IV q.8 h. 2. Colace 100 mg p.o. b.i.d. 3. Lasix 20 mg p.o. twice daily. 4. Lactulose 30 ML p.o. daily as needed for constipation. 5. Levothyroxine 500 mg p.o. daily. 6. Metformin 500 mg p.o. b.i.d. 7. Nadolol 20 mg p.o. daily. 8. Zofran 4 mg IV q.6 h 9. Pantoprazole 20 mcg p.o. daily. 10. Spironolactone 50 mcg p.o. b.i.d. REVIEW OF SYSTEMS Review of systems was obtained the following pertinent positives and negatives. CONSTITUTIONAL: The patient reports fatigue, weakness, denies fevers, chills, night sweats, he reports his appetite is generally weak. HEAD, EYES, EARS, NOSE, AND THROAT: No complaints. RESPIRATORY: Exertional dyspnea, denies cough or hemoptysis. Denies pleuritic chest pain. CARDIOVASCULAR: Denies palpitations, paroxysmal nocturnal dyspnea, orthopnea or lower extremity swelling. GASTROINTESTINAL: Denies nausea, vomiting, diarrhea hematochezia, melena, he reports the leakage of peritoneal fluid from and a eroded umbilical hernia surface skin. EXTREMITIES: Lower extremities, denies edema, weakness or fatigue. CENTRAL NERVOUS SYSTEM: No complaints. PHYSICAL EXAMINATION VITAL SIGNS: Temperature 98 degrees Fahrenheit, heart rate 76 beats a minute, respiratory rate 17, blood pressure 112/57, O2 Saturations are 96% on room air. IN GENERAL APPEARANCE: Mr. Jackman is a middle-aged male, he is tall, thin and appears to be chronically ill. He appears to be somewhat cachectic in fact. HEAD, EYES, EARS, NOSE, AND THROAT: Head atraumatic, normocephalic, conjunctive a are mildly pale, the sclerae are mildly icteric, extraocular muscles intact, Pupils equal, round, reactive to light and accommodation, oral exam no pharyngeal erythema. NECK: Neck exam palpable cervical or supraclavicular adenopathy. RESPIRATORY: Decreased bibasilar breath sounds but otherwise he has good air movement over the upper and middle lung zones without expiratory wheezes or crepitance. CARDIOVASCULAR SYSTEM: Regular rate and rhythm, S1-S2. No obvious murmurs, gallops. ABDOMEN: Protuberant, he has an ostomy bag over the midline, he has an ulcerated area involving the umbilical hernia, there is serosanguineous liquid draining from that. He does have splenomegaly and some hepatomegaly noted as well. EXTREMITIES: No pretibial edema or calf tenderness. CENTRAL NERVOUS SYSTEM: Generally weak but no focal sensory or motor deficits noted. LABORATORY FINDINGS Blood work dated 10/31/2016: Sodium 129, potassium 4.7, chloride 96, bicarbonate 23.6, BUN 17, creatinine 0.82, EGFR 96, random glucose 85, calcium 10. Ferritin level 87, percent iron saturation 70.5, TIBC 105, iron level 74. Complete blood count: WBC count 6.1, hemoglobin 12.6 gm/dl, hematocrit 35.7%, platelet count of 61,000, absolute neutrophil count 4.3. IMMUNOLOGY: Anti mitochondrial antibodies, anti-smooth muscle antibodies and pending, hepatitis A, B and C antibodies are negative. IMAGING STUDIES Ultrasound abdomen dated 09/29/2016: Indicates decompressed abdomen through the local hernia skin opening. No definite evidence of ascites at this time. Head CT scan dated bed CT scan dated 10/07/2016 [facility]: Reveals low grade uptake corresponds the patient is known 4.1 x 4 cm mass along the inferior aspect of the right lower lobe areas concerning for malignancy. ASSESSMENT Mr. Jackman is a 61-year-old man with hepatic cirrhosis due to the above reasons (alcohol abuse and hemochromatosis), he is a child -Arteaga score of 10; class C Cirrhosis. He had been monitored per his own verbal reports for a lesion "liver" while he was living in [place]. He moved down to [place] to be closer to family and underwent restaging imaging of the belly, specifically an MRI. This was performed in September 2016. When the scans in [place] were compared to the scans in [place] it became apparent that "the lesion which was previously thought to be benign had been growing. Imaging and enhancing characteristics were concerning for Hepatocellular carcinoma. He subsequently underwent a PET CT scan which further indicated findings concerning for malignancy due to low grade and diffuse hypermetabolic activity corresponding to the area of the liver involved with a mass. The patient was previously referred to me for further workup and management. Hepatocellular carcinoma: It is apparent that he has disease limited to the liver, he appears to have either one or two foci the largest of which measures below 4.2 cm in largest dimension. There appears to be no evidence of distal metastatic disease. The hematology service has been asked to see the patient to discuss potential treatment options. DISCUSSION Individuals with underlying cirrhosis (any cause cirrhosis) who have findings of the liver suspicious for hepatocellular carcinoma ought to be evaluated for a liver transplant should they fall within the OTTO criteria or within [facility] criteria. Mr. Jackman does fall within these criteria. I would recommend he be evaluated at a tertiary referral center for liver transplant i.e. [facility] or the [facility] in [place]. Should he not be candidate for liver transplant for whatever reason he may be a candidate for partial hepatectomy which in this case would be high risk surgery versus transarterial chemo embolization versus cryoablation of the liver lesion. Unfortunately, given his liver dysfunction and high Lynsey-Arteaga score he would be a poor candidate for palliative systemic therapy with Sorafenib. RECOMMENDATIONS 1. I would recommend obtaining cytology on the ascitic fluid to rule out metastatic disease involvement in the peritoneal fluid. 2. I will defer to surgery for optimal management of the skin breakdown and ascitic leak. 3. Follow up with hematology in the outpatient setting. I will talk to him by liver transplant and referral to a tertiary center. He may want to consider transferring back to [place] if he is an eligible candidate for transplant in case there may be shorter wait times at some of the Liver Transplant Centers [place]. I did encourage him to continue to abstain from alcohol consumption. MD TRISTA Birch/isabel /11:36 AM /12:18 PM AMIE
--- NOTE | 2016-10-31 15:42 | HHI.GIFU ---
Subjective Remarks Pt resting comfortably in bed. No complaints at this time. Objective Vitals I&O Vital Signs Date Time Temp Pulse Resp B/P Pulse Ox O2 Delivery O2 Flow Rate FiO2 10/31/16 12:00 97.6 73 18 96/50 99 10/31/16 08:00 98.0 76 17 112/57 96 10/30/16 23:53 98.4 84 17 115/57 95 10/30/16 20:00 97.4 72 18 113/53 98 10/30/16 16:00 98.7 76 18 112/58 97 I/O 10/30/16 10/30/16 10/30/16 10/31/16 10/31/16 10/31/16 07:00 15:00 23:00 07:00 15:00 23:00 Intake Total 280 ml 680 ml 480 ml 480 ml 600 ml Output Total 1325 ml 200 ml 375 ml Balance 280 ml -645 ml 280 ml 105 ml 600 ml Intake Oral 280 ml 480 ml 480 ml 280 ml 600 ml IV Total 200 ml 0 ml 200 ml Drainage Total 1325 ml 200 ml 375 ml # Voids 1 4 2 2 5 # Bowel Movements 0 1 Laboratory Laboratory Tests Test 10/30/16 10/31/16 18:59 05:29 Iron Level 74 Total Iron Binding Capacity 105 Percent Iron Saturation 70.5 Ferritin 87 Anti-Nuclear Antibody Screen NEG Hepatitis A IgM Antibody NEGATIVE Hepatitis B Surface Antigen NEGATIVE Hepatitis B Core IgM Antibody NEGATIVE Hepatitis C Antibody NEGATIVE Sodium Level 129 Potassium Level 4.7 Chloride Level 96 Carbon Dioxide Level 23.6 Anion Gap 9 Blood Urea Nitrogen 17 Creatinine 0.82 Estimat Glomerular Filtration 96 Rate Random Glucose 85 Calcium Level 10.0 Date/Time Procedure Status Source Growth 10/26/16 22:10 Aerobic Blood Culture - Final Complete Blood Peripheral NO GROWTH IN 5 DAYS 10/26/16 22:10 Anaerobic Blood Culture - Final Complete Blood Peripheral NO GROWTH IN 5 DAYS Imaging Last Impressions Abdomen Ultrasound 10/29/16 0000 Signed Impressions: Service Date/Time: Saturday, October 29, 2016 14:36 - CONCLUSION: No significant ascites as described above. Aryan Macias MD FACR Physical Exam HEENT: EOMI; normocephalic; atraumatic; no jaundice. CHEST: CTA CARDIAC: RRR ABDOMEN: Soft, distended, nontender; bowel sounds are present in all four quadrants, colostomy bag attached to umbilicus draining red tinged fluid. EXTREMITIES: No clubbing, cyanosis, or edema. SKIN: Normal; no rash; no jaundice. SUPERVISOR BLOOD: No focal deficits; alert and oriented times three. Assessment and Plan Plan ASSESSMENT - Liver Cirrhosis with Hemochromatosis and past ETOH use. He was diagnosed with hemochromatosis at age 34 and has been treated with multiple phlebotomies in the past. He continued to drink ETOH until July 102016. He now abstains from ETOH. He cannot tell me exactly when he was diagnosed with liver cirrhosis and states that he has "never been formally diagnosed," however, he does report that he was told at age 38 that he had scarring on his liver. Unfortunately, much of his workup was at another facility and I do not have records to this. liver w/u pending. T. Bili 2.4, AST 51, ALT 32, 113. - Liver mass, possible hepatocellular carcinoma. MRI (08/20/16)---> There are 2 very small hypervascular lesions within the dome of the liver. These are not seen on the dealyed imaging with EOVIST. THe hypervascular enhancement is somewhat concerning. They are too small to biopsy and their location would make biopsy extremely difficult. FU MR in 6 months to ensure stability is warranted. Malignancy is not definitely excluded. 3.4 x 3.3 cm area of decreased contrast enhancement along the right lobe of the liver inferiorly probably representing a regenerating nodule. Splenomegaly with ascites and cirrhosis consistent with portal hypertension. There is a history of hemochromatosis however, there is no significant signal dropout within the liver on vamsi T2 weighted axial imaging. This would suggest there is no significant iron deposition within the liver at this time. PET Scan (10/07/16)---> demonstrated a 4.1 x 4.0 mass along the inferior aspect right lobe with low uptake concerning for malignancy. AFP 9.4 CEA 27.9. - Recurrent Ascites. Pt has been getting paracentesis, but has not been medically optimized and has not been on diuretics at home. He has an umbilical hernia with significant ascitic leak due to erosion of his umbilical skin. He is being followed by [facility], but there are no current plans for surgical intervention secondary to the significant ascitic leak which would erode any attempted repair of the hernia and/or skin. d/c lasix, Albumin 25gm IV q8h, Spironolactone 100mg po BID. Cytology from October 29 US pending. Still draining - Anemia. Mild 12.9, 35.7. EGD (05/2015)----> Jones's esophagus, gastritis , normal duodenum. Colonoscopy (03/30/12)----> diverticulosis in sigmoid, dense with fibrosis and diverticulosis in descending, moderate. Small nonbleeding internal hemorrhoids. - Umbilical hernia. Followed by [facility]. No surgical plans until he is medically optimized with diuretics for his ascites. - Thrombocytopenia. Plt 61,000. - Hyponatremia, Asthma, HTN PLAN - Low sodium diet - Cont. Spironolactone 100mg - Cont. Albumin - Await cytology - Monitor labs - ? Liver biopsy - Liver workup - Call placed to [facility] for possible transplant evaluation- Spoke to [facility]. Pt declined- state they will not consider transplant evaluation until patient has been alcohol free for 6 months- January 07 - Supportive care - Further recommendations to follow based on results of above - Pt seen and examined by Dr. Mantilla and myself and this note is written on his behalf Jasmin Vasquez October 31, 2016 15:42
[2016-10-31 16:00] VITALS: BP 114/58; PULSE 77; RESP 19; TEMP 97.5; O2SAT 98
[2016-10-31 20:00] VITALS: BP 119/58; PULSE 81; RESP 18; TEMP 99.5; O2SAT 98
[2016-11-01] VITALS: BP 117/57; PULSE 93; RESP 18; TEMP 101.1; O2SAT 95
[2016-11-01 04:00] VITALS: TEMP 99.2
[2016-11-01 05:37] LABS: AUTOMATED NEUTROPHIL # 6.1 TH/MM3 (1.8-7.7); BASOPHIL % 0.2 % (0.0-2.0); EOSINOPHIL # 0.1 TH/MM3 (0-0.4); EOSINOPHIL % 1.4 % (0.0-4.0); HEMATOCRIT 33.7 % (39.0-51.0); LYMPH % 6.9 % (9.0-44.0); LYMPHOCYTE # 0.6 TH/MM3 (1.0-4.8); MEAN CELL VOLUME 93.8 FL (80.0-100.0); MEAN CORPUSCULAR HEMOGLOBIN 33.8 PG (27.0-34.0); MONO % 21.2 % (0.0-8.0); NEUT % 70.3 % (16.0-70.0); PLATELET COUNT 61 TH/MM3 (150-450); RED BLOOD COUNT 3.59 MIL/MM3 (4.50-5.90); WHITE BLOOD COUNT 8.7 TH/MM3 (4.0-11.0)
[2016-11-01 05:39] LABS: INTERNATIONAL NORMALIZED RATIO 1.5 RATIO; PROTHROMBIN TIME - PATIENT 16.7 SEC (9.8-11.6)
[2016-11-01 05:44] LABS: HEMO FLAGS AUTO DIFF
[2016-11-01 06:02] LABS: ALKALINE PHOSPHATASE 82 U/L (45-117); ALT (GPT) 23 U/L (12-78); ANION GAP 12 MEQ/L (5-15); AST (GOT) 32 U/L (15-37); BLOOD UREA NITROGEN 22 MG/DL (7-18); CHLORIDE 93 MEQ/L (98-107); GLOMERULAR FILTRATION RATE 86 ML/MIN (>89); POTASSIUM 4.8 MEQ/L (3.5-5.1); SODIUM (NA) 127 MEQ/L (136-145); TOTAL BILIRUBIN ADULT 3.8 MG/DL (0.2-1.0)
[2016-11-01] MEDS: ALBUMIN HUMAN 25% 25 GM/100 ML BAGP IV SCH ×3 (06:17→20:54)
[2016-11-01 08:00] VITALS: BP 120/56; PULSE 87; RESP 18; TEMP 98.1; O2SAT 95
[2016-11-01] MEDS: NADOLOL 20 MG TAB PO SCH (08:59)
[2016-11-01] MEDS: PANTOPRAZOLE SOD 20 MG DELAYED RELEASE TAB PO SCH (08:59)
[2016-11-01] MEDS: metFORMIN HCL 500 MG TAB PO SCH ×2 (08:59→16:31)
[2016-11-01] MEDS: LEVOFLOXACIN 500 MG TAB PO SCH (08:59)
[2016-11-01] MEDS: DOCUSATE SODIUM 100 MG CAP PO SCH ×2 (08:59→20:53)
[2016-11-01] MEDS: SPIRONOLACTONE 50 MG TAB PO SCH ×2 (08:59→20:53)
[2016-11-01 09:41] LABS: PLATELET ESTIMATE SMEAR LOW (NORMAL); PLATELET MORPHOLOGY NORMAL (NORMAL); SCAN/DIFF AUTO DIFF CONFIRMED
[2016-11-01 12:00] VITALS: BP 124/60; PULSE 77; RESP 16; TEMP 98; O2SAT 98
--- NOTE | 2016-11-01 14:16 | HHI.GIFU ---
Subjective Remarks Patient is resting in bed waiting for lunch. Denies N/V, hematemesis or hematochezia Objective Vitals I&O Vital Signs Date Time Temp Pulse Resp B/P Pulse Ox O2 Delivery O2 Flow Rate FiO2 11/01/16 08:00 98.1 87 18 120/56 95 11/01/16 04:00 99.2 11/01/16 00:00 101.1 93 18 117/57 95 10/31/16 20:00 99.5 81 18 119/58 98 10/31/16 20:00 99.5 81 18 119/58 98 10/31/16 16:00 97.5 77 19 114/58 98 I/O 10/31/16 10/31/16 10/31/16 11/01/16 11/01/16 11/01/16 07:00 15:00 23:00 07:00 15:00 23:00 Intake Total 480 ml 1040 ml 240 ml 120 ml Output Total 375 ml 125 ml 0 ml Balance 105 ml 1040 ml 115 ml 120 ml Intake Oral 280 ml 1040 ml 240 ml 120 ml IV Total 200 ml Output Urine Total 75 ml 0 ml Drainage Total 375 ml 50 ml # Voids 2 10 # Bowel Movements 1 1 0 Laboratory Laboratory Tests Test 11/01/16 04:49 White Blood Count 8.7 Red Blood Count 3.59 Hemoglobin 12.1 Hematocrit 33.7 Mean Corpuscular Volume 93.8 Mean Corpuscular Hemoglobin 33.8 Mean Corpuscular Hemoglobin 36.0 Concent Red Cell Distribution Width 14.0 Platelet Count 61 Mean Platelet Volume 10.0 Neutrophils (%) (Auto) 70.3 Lymphocytes (%) (Auto) 6.9 Monocytes (%) (Auto) 21.2 Eosinophils (%) (Auto) 1.4 Basophils (%) (Auto) 0.2 Neutrophils # (Auto) 6.1 Lymphocytes # (Auto) 0.6 Monocytes # (Auto) 1.8 Eosinophils # (Auto) 0.1 Basophils # (Auto) 0.0 CBC Comment AUTO DIFF Differential Comment AUTO DIFF CONFIRMED Platelet Estimate LOW Platelet Morphology Comment NORMAL Prothrombin Time 16.7 Prothromb Time International 1.5 Ratio Sodium Level 127 Potassium Level 4.8 Chloride Level 93 Carbon Dioxide Level 22.0 Anion Gap 12 Blood Urea Nitrogen 22 Creatinine 0.90 Estimat Glomerular Filtration 86 Rate Random Glucose 110 Calcium Level 9.8 Total Bilirubin 3.8 Aspartate Amino Transf 32 (AST/SGOT) Alanine Aminotransferase 23 (ALT/SGPT) Alkaline Phosphatase 82 Total Protein 7.4 Albumin 4.2 Imaging Last Impressions Abdomen Ultrasound 10/29/16 0000 Signed Impressions: Service Date/Time: Saturday, October 29, 2016 14:36 - CONCLUSION: No significant ascites as described above. Aryan Macias MD FACR Physical Exam HEENT: EOMI; normocephalic; atraumatic; no jaundice. CHEST: CTA CARDIAC: RRR ABDOMEN: Soft, distended, nontender; bowel sounds are present in all four quadrants, colostomy bag attached to umbilicus draining red tinged fluid. EXTREMITIES: No clubbing, cyanosis, or edema. SKIN: Normal; no rash; no jaundice. CASH APPLICATION CLERK: No focal deficits; alert and oriented times three. Assessment and Plan Plan ASSESSMENT - Liver Cirrhosis with Hemochromatosis and past ETOH use. He was diagnosed with hemochromatosis at age 34 and has been treated with multiple phlebotomies in the past. He continued to drink ETOH until July 102016. He now abstains from ETOH. He cannot tell me exactly when he was diagnosed with liver cirrhosis and states that he has "never been formally diagnosed," however, he does report that he was told at age 38 that he had scarring on his liver. Unfortunately, much of his workup was at another facility and I do not have records to this. liver w/u pending. T. Bili 2.4, AST 51, ALT 32, 113. - Liver mass, possible hepatocellular carcinoma. MRI (08/20/16)---> There are 2 very small hypervascular lesions within the dome of the liver. These are not seen on the dealyed imaging with EOVIST. THe hypervascular enhancement is somewhat concerning. They are too small to biopsy and their location would make biopsy extremely difficult. FU MR in 6 months to ensure stability is warranted. Malignancy is not definitely excluded. 3.4 x 3.3 cm area of decreased contrast enhancement along the right lobe of the liver inferiorly probably representing a regenerating nodule. Splenomegaly with ascites and cirrhosis consistent with portal hypertension. There is a history of hemochromatosis however, there is no significant signal dropout within the liver on vamsi T2 weighted axial imaging. This would suggest there is no significant iron deposition within the liver at this time. PET Scan (10/07/16)---> demonstrated a 4.1 x 4.0 mass along the inferior aspect right lobe with low uptake concerning for malignancy. AFP 9.4 CEA 27.9. - Recurrent Ascites. Pt has been getting paracentesis, but has not been medically optimized and has not been on diuretics at home. He has an umbilical hernia with significant ascitic leak due to erosion of his umbilical skin. He is being followed by [facility], but there are no current plans for surgical intervention secondary to the significant ascitic leak which would erode any attempted repair of the hernia and/or skin. d/c lasix, Albumin 25gm IV q8h, Spironolactone 100mg po BID. Cytology from October 29 US pending. Still draining - Anemia. Mild 12.9, 35.7. EGD (05/2015)----> Jones's esophagus, gastritis , normal duodenum. Colonoscopy (03/30/12)----> diverticulosis in sigmoid, dense with fibrosis and diverticulosis in descending, moderate. Small nonbleeding internal hemorrhoids. - Umbilical hernia. Followed by [facility]. No surgical plans until he is medically optimized with diuretics for his ascites. - Thrombocytopenia. Plt 61,000. - Hyponatremia, Asthma, HTN 11/01/16 Cytology came back negative for malignant cells, scant amount noted in the drainage bag. PLAN - Low sodium diet - Cont. Spironolactone 100mg - Cont. Lasix 40 mg daily - cont. albumin - Monitor labs - Liver workup pending - Pt declined by [facility], they will not consider transplant evaluation until patient has been alcohol free for 6 months- January 07 - Possible transfer to [facility] if qualifies - Supportive care - Further recommendations to follow based on results of above - Pt seen and examined by Dr. Mantilla and myself and this note is written on his behalf Tarun Castillo November 01, 2016 14:16
--- NOTE | 2016-11-01 15:39 | HHI.PR ---
Subjective Remarks much less ascites drainage. Objective Vitals heart reg lung cta abd open umbilical hernia draining ascites. ostomy bag Vital Signs Date Time Temp Pulse Resp B/P Pulse Ox O2 Delivery O2 Flow Rate FiO2 11/01/16 08:00 98.1 87 18 120/56 95 11/01/16 04:00 99.2 11/01/16 00:00 101.1 93 18 117/57 95 10/31/16 20:00 99.5 81 18 119/58 98 10/31/16 20:00 99.5 81 18 119/58 98 10/31/16 16:00 97.5 77 19 114/58 98 10/31/16 10/31/16 11/01/16 15:00 23:00 07:00 Intake Total 1040 ml 240 ml 120 ml Output Total 125 ml 0 ml Balance 1040 ml 115 ml 120 ml Intake Oral 1040 ml 240 ml 120 ml Output Urine Total 75 ml 0 ml Drainage Total 50 ml # Voids 10 # Bowel Movements 1 1 0 Result Diagram: 11/01/16 0449 11/01/16 0449 Imaging Last Impressions Abdomen Ultrasound 10/29/16 0000 Signed Impressions: Service Date/Time: Saturday, October 29, 2016 14:36 - CONCLUSION: No significant ascites as described above. Aryan Macias MD FACR A/P Problem List: (1) Liver cirrhosis Status: Chronic Plan: - Pt is a 61 y/o male with hepatic cirrhosis, esophageal varices, hx of regular alcohol use (none since 06/2016) and hereditary hemochromatosis. - He presented to [id number] due to bloody drainage from his umbilical hernia. - Pt has known liver cirrhosis and more recently has required frequent large volume paracentesis. - His last therapeutic paracentesis was on 10/22/16 with removal of 15,300cc of blood tinged ascetic fluid. - Pt was not on any diuretic therapy prior to admission. - As an outpt pt was seen by Dr. Ventura (Oncology) in September 2016 for followup for hemochromatosis and concern for hepatocellular carcinoma with report of MRI imaging abnormalities suggesting enlarging hepatic lesions from 08/20/2016. His AFP 9.5 on 09/22/2016. Because of significant risks associated with liver biopsy, PET/CT scan was ordered in lieu, which was completed on 10/07/2016 and per outpt records this demonstrated a 4.1 x 4.0 cm mass along the inferior aspect right lobe with low grade uptake concerning for malignancy. - Spoke with IR, Dr. Macias, who reports that there is no ascites to drain from his abdomen as he is actively draining from the umbilicus - Pt is getting IV Albumin Q8H - Cont. Aldactone and titrate as needed....currently output appears to be dropping but monitor na, bun, cr -cytology neg so far - fever overnight. no abdomen pain. send gs/cx of fluid. on abx [facility] refused to eval pt until December. Try [place] on Thursday. (2) Recurrent umbilical hernia Status: Chronic Plan: - See above. (3) Ascites Status: Chronic Plan: - See above. - Likely assoc with multifactorial cirrhosis, related to hemochromatosis and hx of alcohol use. - No signs of infectious process. (4) Hemochromatosis Status: Chronic Plan: - s/p multiple phlebotomies. - Outpt imaging does not indicate iron deposition in liver at this point. - Most recent labs on 09/22/16 with Ferritin 71, Serum iron 122, TIBC 175, %sat 69.7 (5) Chronic GERD Status: Chronic Plan: - Continue PPI (6) Hyperglycemia Status: Chronic Plan: - He has type 2 diabetes managed with metformin, without any history of nephropathy, neuropathy or retinopathy. - Hgb A1c is 5.4%. - Continue metformin for now. - DM diet. Problem Qualifiers (1) Ascites: Qualified Code: R18.8 - Other ascites Angel Kolb MD November 01, 2016 15:39
[2016-11-01 16:00] VITALS: BP 118/58; PULSE 78; RESP 16; TEMP 98.4; O2SAT 98
[2016-11-01 18:57] LABS: PERITONEAL LYMPHS 77 %; PERITONEAL POLYS(SEGS) 23 %; PERITONEAL WBC 1716 /MM3 (0-10)
[2016-11-01 20:00] VITALS: BP 113/58; PULSE 79; RESP 18; TEMP 98.3; O2SAT 97
[2016-11-02] MEDS: ALBUMIN HUMAN 25% 25 GM/100 ML BAGP IV SCH (06:18)
[2016-11-02 07:43] LABS: BICARBONATE 23.9 MEQ/L (21.0-32.0)
[2016-11-02 08:00] VITALS: BP 118/56; PULSE 84; RESP 14; TEMP 98.2; O2SAT 96
[2016-11-02] MEDS: DOCUSATE SODIUM 100 MG CAP PO SCH ×2 (09:00→21:00)
[2016-11-02] MEDS: metFORMIN HCL 500 MG TAB PO SCH ×2 (10:08→18:02)
[2016-11-02] MEDS: LEVOFLOXACIN 500 MG TAB PO SCH (10:09)
[2016-11-02] MEDS: PANTOPRAZOLE SOD 20 MG DELAYED RELEASE TAB PO SCH (10:09)
[2016-11-02] MEDS: NADOLOL 20 MG TAB PO SCH (10:09)
[2016-11-02] MEDS: SPIRONOLACTONE 50 MG TAB PO SCH (10:09)
[2016-11-02 12:00] VITALS: BP 114/55; PULSE 79; RESP 16; TEMP 98.1; O2SAT 97
--- NOTE | 2016-11-02 12:00 | HHI.GIFU ---
Subjective Remarks Patient reports no pain but drainage from abdominal site increased yesterday to 800+ removed from bag this morning. Still pinkish in color. I discussed case with Hospitalist. I discussed case with Dr Ball on Thursday. Patient has severe combination of problems including possible hepatocellular cancer, ascites , and open drainage of ascites. He may be a candidate for transplantation soon. We will try to transfer to [facility] for evaluation. Also consult IR for possible biopsy of the mass in liver. Objective Vitals I&O Vital Signs Date Time Temp Pulse Resp B/P Pulse Ox O2 Delivery O2 Flow Rate FiO2 11/02/16 08:00 98.2 84 14 118/56 96 11/01/16 20:00 98.3 79 18 113/58 97 11/01/16 16:00 98.4 78 16 118/58 98 11/01/16 12:00 98.0 77 16 124/60 98 I/O 11/01/16 11/01/16 11/01/16 11/02/16 11/02/16 11/02/16 07:00 15:00 23:00 07:00 15:00 23:00 Intake Total 120 ml 600 ml 340 ml 220 ml Output Total 0 ml 300 ml 0 ml 850 ml Balance 120 ml 300 ml 340 ml 220 ml -850 ml Intake Oral 120 ml 600 ml 240 ml 120 ml IV Total 0 ml Albumin 100 ml 100 ml Output Urine Total 0 ml 300 ml Drainage Total 0 ml 850 ml # Voids 3 1 # Bowel Movements 0 1 2 0 Laboratory Laboratory Tests Test 11/01/16 11/02/16 16:33 06:13 Peritoneal Fluid WBC 1716 Peritoneal Fluid RBC 7223 Peritoneal Fluid Neutrophils 23 Peritoneal Fluid Lymphocytes 77 Peritoneal Fluid Albumin 1.4 Peritoneal Fluid LDH 957 Peritoneal Fluid Glucose LESS THAN 1 Sodium Level 128 Potassium Level 5.0 Chloride Level 94 Carbon Dioxide Level 23.9 Anion Gap 10 Blood Urea Nitrogen 21 Creatinine 0.86 Estimat Glomerular Filtration 90 Rate Random Glucose 96 Calcium Level 10.0 Date/Time Procedure Status Source Growth 11/01/16 16:33 Gram Stain - Final Resulted Fluid Peritoneal Fluid 11/01/16 16:33 Body Fluid Culture Resulted Fluid Peritoneal Fluid Pending Physical Exam HEENT: EOMI; normocephalic; atraumatic; no jaundice. CHEST: CTA CARDIAC: RRR ABDOMEN: Soft, distended, nontender; bowel sounds are present in all four quadrants, colostomy bag attached to umbilicus draining red tinged fluid. EXTREMITIES: No clubbing, cyanosis, or edema. SKIN: Normal; no rash; no jaundice. TRIAGE REGISTER NURSE: No focal deficits; alert and oriented times three. Assessment and Plan Plan ASSESSMENT - Liver Cirrhosis with Hemochromatosis and past ETOH use. He was diagnosed with hemochromatosis at age 34 and has been treated with multiple phlebotomies in the past. He continued to drink ETOH until July 102016. He now abstains from ETOH. He cannot tell me exactly when he was diagnosed with liver cirrhosis and states that he has "never been formally diagnosed," however, he does report that he was told at age 38 that he had scarring on his liver. Unfortunately, much of his workup was at another facility and I do not have records to this. liver w/u pending. T. Bili 2.4, AST 51, ALT 32, 113. - Liver mass, possible hepatocellular carcinoma. MRI (08/20/16)---> There are 2 very small hypervascular lesions within the dome of the liver. These are not seen on the dealyed imaging with EOVIST. THe hypervascular enhancement is somewhat concerning. They are too small to biopsy and their location would make biopsy extremely difficult. FU MR in 6 months to ensure stability is warranted. Malignancy is not definitely excluded. 3.4 x 3.3 cm area of decreased contrast enhancement along the right lobe of the liver inferiorly probably representing a regenerating nodule. Splenomegaly with ascites and cirrhosis consistent with portal hypertension. There is a history of hemochromatosis however, there is no significant signal dropout within the liver on vamsi T2 weighted axial imaging. This would suggest there is no significant iron deposition within the liver at this time. PET Scan (10/07/16)---> demonstrated a 4.1 x 4.0 mass along the inferior aspect right lobe with low uptake concerning for malignancy. AFP 9.4 CEA 27.9. - Recurrent Ascites. Pt has been getting paracentesis, but has not been medically optimized and has not been on diuretics at home. He has an umbilical hernia with significant ascitic leak due to erosion of his umbilical skin. He is being followed by [facility], but there are no current plans for surgical intervention secondary to the significant ascitic leak which would erode any attempted repair of the hernia and/or skin. d/c lasix, Albumin 25gm IV q8h, Spironolactone 100mg po BID. Cytology from October 29 US pending. Still draining - Anemia. Mild 12.9, 35.7. EGD (05/2015)----> Jones's esophagus, gastritis , normal duodenum. Colonoscopy (03/30/12)----> diverticulosis in sigmoid, dense with fibrosis and diverticulosis in descending, moderate. Small nonbleeding internal hemorrhoids. - Umbilical hernia. Followed by [facility]. No surgical plans until he is medically optimized with diuretics for his ascites. - Thrombocytopenia. Plt 61,000. - Hyponatremia, Asthma, HTN 11/02/16 Fluid WBC meets criteria for SBPeritonitis. On antibiotic awaiting cultures 11/01/16 Cytology came back negative for malignant cells, scant amount noted in the drainage bag. PLAN - Low sodium diet -stop albumin for a day or two -Increase spironolactone to 200 bid - Monitor labs - Liver workup pending - Pt declined- for [facility] transplant center. state they will not consider transplant evaluation until patient has been alcohol free for 6 months- January 07 - Possible transfer to [place] if qualifies - Supportive care - Further recommendations to follow based on results of above Sebastian Mantilla MD November 02, 2016 12:00
[2016-11-02] MEDS: SPIRONOLACTONE 100 MG TAB PO SCH ×3 (13:44→21:03)
--- NOTE | 2016-11-02 14:31 | HHI.PR ---
Subjective Remarks no complaints by pt Objective Vitals heart reg lung cta abd umbilical hernia with erosion and drainage of ascites..today bloody appearance ext no edema Vital Signs Date Time Temp Pulse Resp B/P Pulse Ox O2 Delivery O2 Flow Rate FiO2 11/02/16 12:00 98.1 79 16 114/55 97 11/02/16 08:00 98.2 84 14 118/56 96 11/01/16 20:00 98.3 79 18 113/58 97 11/01/16 16:00 98.4 78 16 118/58 98 11/01/16 11/01/16 11/02/16 14:59 22:59 06:59 Intake Total 600 ml 340 ml 220 ml Output Total 300 ml 0 ml Balance 300 ml 340 ml 220 ml Intake Oral 600 ml 240 ml 120 ml IV Total 0 ml Albumin 100 ml 100 ml Output Urine Total 300 ml Drainage Total 0 ml # Voids 3 1 # Bowel Movements 1 2 0 Result Diagram: 11/01/16 0449 11/02/16 0613 Imaging Last Impressions Abdomen Ultrasound 10/29/16 0000 Signed Impressions: Service Date/Time: Saturday, October 29, 2016 14:36 - CONCLUSION: No significant ascites as described above. Aryan Macias MD FACR A/P Problem List: (1) Liver cirrhosis Status: Chronic Plan: - Pt is a 61 y/o male with hepatic cirrhosis, esophageal varices, hx of regular alcohol use (none since 06/2016) and hereditary hemochromatosis. - He presented to [facility] due to bloody drainage from his umbilical hernia. - Pt has known liver cirrhosis and more recently has required frequent large volume paracentesis. - His last therapeutic paracentesis was on 10/22/16 with removal of 15,300cc of blood tinged ascetic fluid. - Pt was not on any diuretic therapy prior to admission. - As an outpt pt was seen by Dr. Ventura (Oncology) in September 2016 for followup for hemochromatosis and concern for hepatocellular carcinoma with report of MRI imaging abnormalities suggesting enlarging hepatic lesions from 08/20/2016. His AFP 9.5 on 09/22/2016. Because of significant risks associated with liver biopsy, PET/CT scan was ordered in lieu, which was completed on 10/07/2016 and per outpt records this demonstrated a 4.1 x 4.0 cm mass along the inferior aspect right lobe with low grade uptake concerning for malignancy. - Spoke with IR, Dr. Macias, who reports that there is no ascites to drain from his abdomen as he is actively draining from the umbilicus - Pt is getting IV Albumin Q8H - Cont. Aldactone. We have been titrating up slowly to monitor for derek and hypotension. His bp is tolerating so far and kidney function ok. monitor na and k - His ascitic drainage slowed to 50ml yesterday but now 800 cc again today - Fever over weekend. on abx. sent ascitic fluid for gs/cx - [facility] has refused to evaluate pt until December when 6m up from last etoh drink - Discussed with GI today...Will plan to call [facility] tomorrow and ask for evaluation now. If refusal the ask IR for liver bx and ?ablation if indication and titrate as needed....currently output appears to be dropping but monitor na , bun, cr -cytology neg so far negative - (2) Recurrent umbilical hernia Status: Chronic Plan: - See above. (3) Ascites Status: Chronic Plan: - See above. - Likely assoc with multifactorial cirrhosis, related to hemochromatosis and hx of alcohol use. - No signs of infectious process. (4) Hemochromatosis Status: Chronic Plan: - s/p multiple phlebotomies. - Outpt imaging does not indicate iron deposition in liver at this point. - Most recent labs on 09/22/16 with Ferritin 71, Serum iron 122, TIBC 175, %sat 69.7 (5) Chronic GERD Status: Chronic Plan: - Continue PPI (6) Hyperglycemia Status: Chronic Plan: - He has type 2 diabetes managed with metformin, without any history of nephropathy, neuropathy or retinopathy. - Hgb A1c is 5.4%. - Continue metformin for now. - DM diet. Problem Qualifiers (1) Ascites: Qualified Code: R18.8 - Other ascites Angel Kolb MD November 02, 2016 14:31
[2016-11-02] MEDS ORDERED: VANCOMYCIN INJ 1,000 MG in SODIUM CHLOR 0.9% 250 ML INJ 250 ML IV ONE (15:00)
[2016-11-02 16:00] VITALS: BP 111/54; PULSE 78; RESP 19; TEMP 98.3; O2SAT 96
[2016-11-02 20:00] VITALS: BP 113/56; PULSE 80; RESP 18; TEMP 99.3; O2SAT 96
[2016-11-03] VITALS: BP 107/55; PULSE 83; RESP 18; TEMP 99.7; O2SAT 96
[2016-11-03 01:01] LABS: MITOCHONDRIAL ABS LESS THAN 20.0 U (())
[2016-11-03 06:40] LABS: BICARBONATE 24.2 MEQ/L (21.0-32.0); POTASSIUM 4.7 MEQ/L (3.5-5.1)
[2016-11-03 08:00] VITALS: BP 118/59; PULSE 74; RESP 16; TEMP 98.1; O2SAT 96
[2016-11-03] MEDS: NADOLOL 20 MG TAB PO SCH (08:11)
[2016-11-03] MEDS: metFORMIN HCL 500 MG TAB PO SCH ×2 (08:11→16:25)
[2016-11-03] MEDS: LEVOFLOXACIN 500 MG TAB PO SCH (08:11)
[2016-11-03] MEDS: SPIRONOLACTONE 100 MG TAB PO SCH ×4 (08:12→20:00)
[2016-11-03] MEDS: PANTOPRAZOLE SOD 20 MG DELAYED RELEASE TAB PO SCH (08:12)
[2016-11-03] MEDS: DOCUSATE SODIUM 100 MG CAP PO SCH ×2 (08:13→20:00)
--- NOTE | 2016-11-03 11:43 | HHI.GIFU ---
Subjective Remarks Resting in bed. No n/v. No abdominal pain. States he is eating well. ( Awilda Palmer) Objective Vitals I&O Vital Signs Date Time Temp Pulse Resp B/P Pulse Ox O2 Delivery O2 Flow Rate FiO2 11/03/16 08:00 98.1 74 16 118/59 96 11/03/16 00:00 99.7 83 18 107/55 96 11/02/16 20:00 99.3 80 18 113/56 96 11/02/16 16:00 98.3 78 19 111/54 96 11/02/16 12:00 98.1 79 16 114/55 97 I/O 11/02/16 11/02/16 11/02/16 11/03/16 11/03/16 11/03/16 07:00 15:00 23:00 07:00 15:00 23:00 Intake Total 220 ml 960 ml 240 ml 120 ml Output Total 2375 ml 0 ml 250 ml Balance 220 ml -1415 ml 240 ml -130 ml Intake Oral 120 ml 960 ml 240 ml 120 ml Albumin 100 ml Output Urine Total 700 ml 0 ml Drainage Total 1675 ml 0 ml 250 ml # Voids 1 2 # Bowel Movements 0 1 1 0 Laboratory Laboratory Tests Test 11/03/16 05:15 Sodium Level 128 Potassium Level 4.7 Chloride Level 95 Carbon Dioxide Level 24.2 Anion Gap 9 Blood Urea Nitrogen 18 Creatinine 0.74 Estimat Glomerular Filtration 108 Rate Random Glucose 88 Calcium Level 10.1 Date/Time Procedure Status Source Growth 11/01/16 16:33 Gram Stain - Final Resulted Fluid Peritoneal Fluid 11/01/16 16:33 Body Fluid Culture - Preliminary Resulted S. Aureus Mrsa Imaging Last Impressions Abdomen Ultrasound 10/29/16 0000 Signed Impressions: Service Date/Time: Saturday, October 29, 2016 14:36 - CONCLUSION: No significant ascites as described above. Aryan Macias MD FACR Physical Exam HEENT: Normocephalic; atraumatic; no jaundice. CHEST: CTA CARDIAC: RRR ABDOMEN: Soft, nontender; bowel sounds are present in all four quadrants, collection bag attached to umbilicus draining small amount of red tinged fluid. EXTREMITIES: No clubbing, cyanosis, or edema. SKIN: Normal; no rash; no jaundice. VALET PARKER: No focal deficits; alert and oriented times three. (Awilda Palmer [facility]) Assessment and Plan Plan ASSESSMENT - Decompensated Liver Cirrhosis with Hemochromatosis and past ETOH use. He was diagnosed with hemochromatosis at age 34 and has been treated with multiple phlebotomies in the past. He continued to drink ETOH until July 102016. He now abstains from ETOH. He cannot tell me exactly when he was diagnosed with liver cirrhosis and states that he has "never been formally diagnosed," however, he does report that he was told at age 38 that he had scarring on his liver. Unfortunately, much of his workup was at another facility and I do not have records to this. T. Bili 3.8, AST 32, ALT 23, Alk Phosph 82. Hepatitis panel negative, BELINDA negative. AMA < 20.0, ASMA pending, Ferritin 87, Iron Saturation 70.5, alpha 1 antitrypsin 111, Ceruloplasmin 18 , AFP 9.4, CEA 27.9. - Liver mass, suspected hepatocellular carcinoma. MRI (08/20/16)---> There are 2 very small hypervascular lesions within the dome of the liver. These are not seen on the dealyed imaging with EOVIST. THe hypervascular enhancement is somewhat concerning. They are too small to biopsy and their location would make biopsy extremely difficult. FU MR in 6 months to ensure stability is warranted. Malignancy is not definitely excluded. 3.4 x 3.3 cm area of decreased contrast enhancement along the right lobe of the liver inferiorly probably representing a regenerating nodule. Splenomegaly with ascites and cirrhosis consistent with portal hypertension. There is a history of hemochromatosis however, there is no significant signal dropout within the liver on vamsi T2 weighted axial imaging. This would suggest there is no significant iron deposition within the liver at this time. PET Scan (10/07/16)---> demonstrated a 4.1 x 4.0 mass along the inferior aspect right lobe with low uptake concerning for malignancy. AFP 9.4 CEA 27.9. - Recurrent Ascites. Pt has been getting paracentesis, but has not been medically optimized and has not been on diuretics at home. He has an umbilical hernia with significant ascitic leak due to erosion of his umbilical skin. He is being followed by [facility], but there are no current plans for surgical intervention secondary to the significant ascitic leak which would erode any attempted repair of the hernia and/or skin. d/c lasix, Albumin 25gm IV q8h, Spironolactone 100mg po BID. Cytology from October 29 negative for malignant cells, reactive mesothelial cells and numerous lymphocytes, numerous coccoid bacterial organisms. Cytology from 11/03 pending. Still draining although decreasing. Spironolactone 100mg QID. Levaquin. - Anemia. Mild 12.1/33.7. EGD (05/2015)----> Jones's esophagus, gastritis , normal duodenum. Colonoscopy (03/30/12)----> diverticulosis in sigmoid, dense with fibrosis and diverticulosis in descending, moderate. Small nonbleeding internal hemorrhoids. - Umbilical hernia. Followed by [facility]. No surgical plans until he is medically optimized with diuretics for his ascites. - Thrombocytopenia. Plt 61,000. - Hyponatremia, Asthma, HTN PLAN - Low sodium diet - Cont. Spironolactone - Cont. Levaquin - Await ASMA - Monitor labs - Pt declined- for [facility] transplant center. state they will not consider transplant evaluation until patient has been alcohol free for 6 months- January 07 - Will talk to [facility] to see if they will accept patient for transfer for further evaluation/treatment of HCC +/- liver transplant evaluation. Spoke to tx [phone]. Will fax face sheet, H&P, Consults, Last progress notes, labs, imaging, pathology per their request to . - Consult CM to assist with transfer - Supportive care - Further recommendations to follow based on results of above - Pt seen and examined by Dr. Ball and myself and this note is written on his behalf. 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
[2016-11-03 12:00] VITALS: BP 110/23; PULSE 69; RESP 18; TEMP 97.9; O2SAT 96
--- NOTE | 2016-11-03 15:50 | HHI.PR ---
Subjective Remarks Pt has had less documented output of ascites from the hernia, 275cc overnight and this morning. No specific complaints. Afebrile today Objective Vitals Vital Signs Date Time Temp Pulse Resp B/P Pulse Ox O2 Delivery O2 Flow Rate FiO2 11/03/16 12:00 97.9 69 18 110/23 96 11/03/16 08:00 98.1 74 16 118/59 96 11/03/16 00:00 99.7 83 18 107/55 96 11/02/16 20:00 99.3 80 18 113/56 96 11/02/16 16:00 98.3 78 19 111/54 96 11/02/16 11/02/16 11/03/16 15:00 23:00 07:00 Intake Total 960 ml 240 ml 120 ml Output Total 2375 ml 0 ml 250 ml Balance -1415 ml 240 ml -130 ml Intake Oral 960 ml 240 ml 120 ml Output Urine Total 700 ml 0 ml Drainage Total 1675 ml 0 ml 250 ml # Voids 2 # Bowel Movements 1 1 0 Result Diagram: 11/01/16 0449 11/03/16 0515 Other Results Laboratory Tests Test 11/01/16 11/02/16 11/03/16 16:33 06:13 05:15 Peritoneal Fluid WBC 1716 /MM3 Peritoneal Fluid RBC 7223 /MM3 Peritoneal Fluid Neutrophils 23 % Peritoneal Fluid Lymphocytes 77 % Peritoneal Fluid Albumin 1.4 G/DL Peritoneal Fluid LDH 957 U/L Peritoneal Fluid Glucose LESS THAN 1 MG/DL Sodium Level 128 MEQ/L 128 MEQ/L Potassium Level 5.0 MEQ/L 4.7 MEQ/L Chloride Level 94 MEQ/L 95 MEQ/L Carbon Dioxide Level 23.9 MEQ/L 24.2 MEQ/L Anion Gap 10 MEQ/L 9 MEQ/L Blood Urea Nitrogen 21 MG/DL 18 MG/DL Creatinine 0.86 MG/DL 0.74 MG/DL Estimat Glomerular Filtration 90 ML/MIN 108 ML/MIN Rate Random Glucose 96 MG/DL 88 MG/DL Calcium Level 10.0 MG/DL 10.1 MG/DL Imaging Last Impressions Abdomen Ultrasound 10/29/16 0000 Signed Impressions: Service Date/Time: Saturday, October 29, 2016 14:36 - CONCLUSION: No significant ascites as described above. Aryan Macias MD FACR Objective Remarks General: NAD, AAOx3 Chest: CTA Cardiac: Regular Abd: +BS, soft, collection bag attached to umbilicus draining small amount of red tinged fluid. Ext: No edema A/P Problem List: (1) Liver cirrhosis Status: Chronic Plan: - Pt is a 61 y/o male with hepatic cirrhosis, esophageal varices, hx of regular alcohol use (none since 06/2016) and hereditary hemochromatosis. - He presented to [facility] due to bloody drainage from his umbilical hernia. - Pt has known liver cirrhosis and more recently has required frequent large volume paracentesis. - His last therapeutic paracentesis was on 10/22/16 with removal of 15,300cc of blood tinged ascetic fluid. - Pt was not on any diuretic therapy prior to admission. - As an outpt pt was seen by Dr. Ventura (Oncology) in September 2016 for followup for hemochromatosis and concern for hepatocellular carcinoma with report of MRI imaging abnormalities suggesting enlarging hepatic lesions from 08/20/2016. His AFP 9.5 on 09/22/2016. Because of significant risks associated with liver biopsy, PET/CT scan was ordered in lieu, which was completed on 10/07/2016 and per outpt records this demonstrated a 4.1 x 4.0 cm mass along the inferior aspect right lobe with low grade uptake concerning for malignancy. - Spoke with IR, Dr. Macias, who reports that there is no ascites to drain from his abdomen as he is actively draining from the umbilicus - Pt is getting IV Albumin Q8H - Cont. Aldactone. We have been titrating up slowly (currently on Aldactone 100mg QID) to monitor for RAJENDRA and hypotension. His BP is tolerating so far and kidney function stable. - Cont. to monitor electrolytes and renal function - His ascitic drainage slowed today to 275cc so far - He had a fever over the weekend and ascitic fluid grew out MRSA. - Pt was given po Levaquin from 10/31-11/03 and a dose of Vancomycin IV on 11/02. MRSA resistant to Levaquin so this will be stopped and Abx changed to Vancomycin IV with pharmacy dosing. - [facility] has refused to evaluate pt until December when 6month is up from last EtOH drink - Discussed with GI today, they have contacted [facility] to ask for evaluation to see if they will accept patient for transfer for further evaluation/treatment of HCC +/- liver transplant evaluation. - Cytology (10/29) neg. Repeat cytology is pending. - Monitor labs and clinical status closely. (2) Recurrent umbilical hernia Status: Chronic Plan: - See above. (3) Ascites Status: Chronic Plan: - See above. - Likely assoc with multifactorial cirrhosis, related to hemochromatosis and hx of alcohol use. - No signs of infectious process. (4) Hemochromatosis Status: Chronic Plan: - s/p multiple phlebotomies. - Outpt imaging does not indicate iron deposition in liver at this point. - Most recent labs on 09/22/16 with Ferritin 71, Serum iron 122, TIBC 175, %sat 69.7 (5) Chronic GERD Status: Chronic Plan: - Continue PPI (6) Hyperglycemia Status: Chronic Plan: - He has type 2 diabetes managed with metformin, without any history of nephropathy, neuropathy or retinopathy. - Hgb A1c is 5.4%. - Continue metformin for now. - DM diet. Assessment and Plan Patient examined. Assessment and plan formulated with Louisa Ga PA-C. I agree with the above. Awaiting review of records by [facility] for possible transfer. Apparently [facility] would prefer liver bx at their facility if they decide to accept. Pt has poor insight into his medical condition. Case reviewed with pt at the bedside and all questions were addressed. Problem Qualifiers (1) Ascites: Qualified Code: R18.8 - Other ascites Louisa Ga November 03, 2016 15:50 Rivas Hightower DO November 04, 2016 02:14
[2016-11-03 16:00] VITALS: BP 122/57; PULSE 70; RESP 20; TEMP 98.3; O2SAT 95
[2016-11-03] MEDS ORDERED: VANCOMYCIN INJ 1,000 MG in SODIUM CHLOR 0.9% 250 ML INJ 250 ML IV SCH (16:00)
[2016-11-03] MEDS ORDERED: Vancomycin Consult Pharmacy 1 EA OTHER SCH (16:00)
[2016-11-03] MEDS ORDERED: ACETAMINOPHEN 325 MG TAB PO PRN (16:15)
[2016-11-03] MEDS ORDERED: ONDANSETRON HCL 4 MG/2 ML VIAL IV PRN (16:15)
[2016-11-03] MEDS: VANCOMYCIN INJ 1,500 MG in SODIUM CHLORID 0.9% 500 ML INJ 500 ML IV SCH (17:18)
[2016-11-03 20:00] VITALS: BP 112/59; PULSE 73; RESP 20; TEMP 97.6; O2SAT 95
[2016-11-03 21:15] LABS: MEAN CORPUSCULAR HGB CONC 36.1 % (32.0-36.0)
[2016-11-04] VITALS: BP 103/54; PULSE 73; RESP 20; TEMP 99.1; O2SAT 94
[2016-11-04 05:21] LABS: AUTOMATED NEUTROPHIL # 3.3 TH/MM3 (1.8-7.7); BASOPHIL % 0.5 % (0.0-2.0); EOSINOPHIL # 0.2 TH/MM3 (0-0.4); EOSINOPHIL % 4.3 % (0.0-4.0); HEMATOCRIT 33.2 % (39.0-51.0); LYMPH % 11.1 % (9.0-44.0); LYMPHOCYTE # 0.5 TH/MM3 (1.0-4.8); MEAN CELL VOLUME 94.3 FL (80.0-100.0); MONO % 16.8 % (0.0-8.0); NEUT % 67.3 % (16.0-70.0); PLATELET COUNT 57 TH/MM3 (150-450); RED BLOOD COUNT 3.52 MIL/MM3 (4.50-5.90); RED CELL DISTRIBUTION WIDTH 14.6 % (11.6-17.2); WHITE BLOOD COUNT 4.9 TH/MM3 (4.0-11.0)
[2016-11-04] MEDS: VANCOMYCIN INJ 1,500 MG in SODIUM CHLORID 0.9% 500 ML INJ 500 ML IV SCH ×2 (05:22→18:21)
[2016-11-04 05:38] LABS: BICARBONATE 24.9 MEQ/L (21.0-32.0); MAGNESIUM 1.7 MG/DL (1.5-2.5); POTASSIUM 4.5 MEQ/L (3.5-5.1)
[2016-11-04 05:46] LABS: HEMO FLAGS AUTO DIFF
[2016-11-04 06:54] LABS: PLATELET ESTIMATE SMEAR LOW (NORMAL); PLATELET MORPHOLOGY NORMAL (NORMAL); SCAN/DIFF AUTO DIFF CONFIRMED
[2016-11-04 08:00] VITALS: BP 119/57; PULSE 67; RESP 18; TEMP 97.4; O2SAT 96
[2016-11-04] MEDS: PANTOPRAZOLE SOD 20 MG DELAYED RELEASE TAB PO SCH (09:10)
[2016-11-04] MEDS: SPIRONOLACTONE 100 MG TAB PO SCH ×4 (09:10→19:42)
[2016-11-04] MEDS: NADOLOL 20 MG TAB PO SCH (09:10)
[2016-11-04] MEDS: metFORMIN HCL 500 MG TAB PO SCH ×2 (09:10→18:21)
[2016-11-04] MEDS: DOCUSATE SODIUM 100 MG CAP PO SCH ×2 (09:10→19:41)
[2016-11-04 12:00] VITALS: BP 108/57; PULSE 66; RESP 18; TEMP 97.7; O2SAT 97
--- NOTE | 2016-11-04 14:41 | HHI.GIFU ---
Subjective Remarks Resting in bed. Continues to have bloody ascitic drainage from his umbilical hernia. He is not having fevers. (Awilda Palmer) Objective Vitals I&O Vital Signs Date Time Temp Pulse Resp B/P Pulse Ox O2 Delivery O2 Flow Rate FiO2 11/04/16 12:00 97.7 66 18 108/57 97 11/04/16 08:00 97.4 67 18 119/57 96 11/04/16 00:00 99.1 73 20 103/54 94 11/03/16 20:00 97.6 73 20 112/59 95 11/03/16 16:00 98.3 70 20 122/57 95 I/O 11/03/16 11/03/16 11/03/16 11/04/16 11/04/16 11/04/16 07:00 15:00 23:00 07:00 15:00 23:00 Intake Total 120 ml 480 ml 240 ml Output Total 250 ml 25 ml 250 ml 550 ml Balance -130 ml -25 ml 230 ml -310 ml Intake Oral 120 ml 480 ml 240 ml Output Urine Total 0 ml Drainage Total 250 ml 25 ml 250 ml 550 ml # Voids 2 1 # Bowel Movements 0 0 0 Laboratory Laboratory Tests Test 11/04/16 11/04/16 04:54 04:57 White Blood Count 4.9 Red Blood Count 3.52 Hemoglobin 12.0 Hematocrit 33.2 Mean Corpuscular Volume 94.3 Mean Corpuscular Hemoglobin 34.0 Mean Corpuscular Hemoglobin 36.1 Concent Red Cell Distribution Width 14.6 Platelet Count 57 Mean Platelet Volume 9.2 Neutrophils (%) (Auto) 67.3 Lymphocytes (%) (Auto) 11.1 Monocytes (%) (Auto) 16.8 Eosinophils (%) (Auto) 4.3 Basophils (%) (Auto) 0.5 Neutrophils # (Auto) 3.3 Lymphocytes # (Auto) 0.5 Monocytes # (Auto) 0.8 Eosinophils # (Auto) 0.2 Basophils # (Auto) 0.0 CBC Comment AUTO DIFF Differential Comment AUTO DIFF CONFIRMED Platelet Estimate LOW Platelet Morphology Comment NORMAL Sodium Level 128 Potassium Level 4.5 Chloride Level 94 Carbon Dioxide Level 24.9 Anion Gap 9 Blood Urea Nitrogen 20 Creatinine 0.83 Estimat Glomerular Filtration 94 Rate Random Glucose 92 Calcium Level 9.6 Magnesium Level 1.7 Date/Time Procedure Status Source Growth 11/01/16 16:33 Gram Stain - Final Complete Fluid Peritoneal Fluid 11/01/16 16:33 Body Fluid Culture - Final Complete S. Aureus Mrsa Imaging Last Impressions Abdomen Ultrasound 10/29/16 0000 Signed Impressions: Service Date/Time: Saturday, October 29, 2016 14:36 - CONCLUSION: No significant ascites as described above. Aryan Macias MD FACR Physical Exam HEENT: Normocephalic; atraumatic; no jaundice. CHEST: CTA CARDIAC: RRR ABDOMEN: Soft, nontender; bowel sounds are present in all four quadrants, collection bag attached to umbilicus draining small amount of red tinged fluid. EXTREMITIES: No clubbing, cyanosis, or edema. SKIN: Normal; no rash; no jaundice. HISTORIC SITE ADMINISTRATOR: No focal deficits; alert and oriented times three. (Awilda Palmer [facility]) Assessment and Plan Plan ASSESSMENT - Liver Cirrhosis with Hemochromatosis and past ETOH use. He was diagnosed with hemochromatosis at age 34 and has been treated with multiple phlebotomies in the past. He continued to drink ETOH until July 102016. He now abstains from ETOH. He cannot tell me exactly when he was diagnosed with liver cirrhosis and states that he has "never been formally diagnosed," however, he does report that he was told at age 38 that he had scarring on his liver. Unfortunately, much of his workup was at another facility and I do not have records to this. Hepatitis panel negative, BELINDA negative. AMA < 20.0, ASMA positive 1:80, Ferritin 87, Iron Saturation 70.5, alpha 1 antitrypsin 111, Ceruloplasmin 18, AFP 9.4, CEA 27.9. - Liver mass, possible hepatocellular carcinoma. MRI (08/20/16)---> There are 2 very small hypervascular lesions within the dome of the liver. These are not seen on the dealyed imaging with EOVIST. THe hypervascular enhancement is somewhat concerning. They are too small to biopsy and their location would make biopsy extremely difficult. FU MR in 6 months to ensure stability is warranted. Malignancy is not definitely excluded. 3.4 x 3.3 cm area of decreased contrast enhancement along the right lobe of the liver inferiorly probably representing a regenerating nodule. Splenomegaly with ascites and cirrhosis consistent with portal hypertension. There is a history of hemochromatosis however, there is no significant signal dropout within the liver on vamsi T2 weighted axial imaging. This would suggest there is no significant iron deposition within the liver at this time. PET Scan (10/07/16)---> demonstrated a 4.1 x 4.0 mass along the inferior aspect right lobe with low uptake concerning for malignancy. AFP 9.4 CEA 27.9. Pt has not been approved for hospital to hospital transfer. Will continue current treatment and consider outpatient evaluation at time of discharge. - Recurrent Ascites. Pt has been getting paracentesis, but has not been medically optimized and has not been on diuretics at home. He has an umbilical hernia with significant ascitic leak due to erosion of his umbilical skin. He is being followed by [facility], but there are no current plans for surgical intervention secondary to the significant ascitic leak which would erode any attempted repair of the hernia and/or skin. Fluid Cx S. Aureus MRSA. On Vanco. Spironolactone. 825cc ascites drainage out today - Anemia. Mild 12.0/33.2. EGD (05/2015)----> Jones's esophagus, gastritis , normal duodenum. Colonoscopy (03/30/12)----> diverticulosis in sigmoid, dense with fibrosis and diverticulosis in descending, moderate. Small nonbleeding internal hemorrhoids. - Umbilical hernia. Followed by [facility]. No surgical plans until he is medically optimized with diuretics for his ascites. - Thrombocytopenia. Plt 57,000. - Hyponatremia, Asthma, HTN PLAN - Low sodium diet - Cont. Spironolactone - Cont. Vanco - Monitor labs - Pt declined by [facility], they will not consider transplant evaluation until patient has been alcohol free for 6 months- January 07 - [facility] have agreed to accept patient for treatment of HCC +/- transplant evaluation if there is no vascular involvement and if patient has been cleared by [facility]. Pt has not been cleared for hospital to hospital transfer. Possible evaluation as outpatient. - Further recommendations to follow based on results of above - Pt seen and examined by Dr. Ball and myself and this note is written on his behalf (Awilda Palmer) Physician Comments Patient seen and examined Agree with above Continue with current supportive care Monitor labs (Chandana Ball MD) Awilda Palmer November 04, 2016 14:41 Chandana Ball MD November 04, 2016 19:49
--- NOTE | 2016-11-04 15:06 | PD.ID.CON ---
History of Present Illness Service ID Consult Requested By Dr. Hightower Reason for Consult Evaluation and Mment of MRSA peritonitis. Primary Care Physician Gigi Kelley MD Diagnoses: History of Present Illness is a 61 y/o CM with PMHx significant for ? hereditary hemochromatosis h/o blood letting phlebotomy for treatment, alcoholism with liver disease, recurrent ascitis s/p large volume paracentesis, liver mass under investigation with suspicion of ? Hepatocellular carcinoma. Reportedly, patient has been seen outpatient by GI as well as Oncology and there is a concern that the liver mass is a malignancy. Patient self reports h/o umbilical hernia repair in past x 2 in [place] (raising suspicion that this disease process could have been longer than last 3 months). Patient also reports outpatient therapeutic tap large volumes but not on diuretics per review of other MD records. With this background patient is admitted with complains of spontaneous drainage of fluid from his umbilical hernia which started a few hours prior to arrival. He was a social drinker, but reportedly he has not drank alcohol since June 2016. He has not had any fever or chills. There is no history of trauma. He reports he overall feels fine but is concerned that he continues to have blood-tinged serous discharge from his umbilicus. General surgery is on case. During his stay he has been spontaneously draining serosanguinous fluid from umbilicus and a colostomy bag is attached to it. The lab and culture studies appear to have been sent using fluid from this bag from what I see in chart. IR was consulted but reportedly his US always shows no ascites although he continues to drain large volume fluid. Cultures from this bag grew MRSA and pathology for cytology from this bag has been sent and pending at time of my evaluation. ID consulted for evaluation and Mment of MRSA peritonitis. Review of Systems ROS Limitations: Poor Historian Constitutional: DENIES: Diaphoretic episodes, Fatigue, Fever, Weight gain, Weight loss, Chills, Dizziness, Change in appetite, Night Sweats Endocrine: DENIES: Heat/cold intolerance, Polydipsia, Polyuria, Polyphagia Eyes: DENIES: Blurred vision, Diplopia, Eye inflammation, Eye pain, Vision loss , Photosensitivity, Double Vision Ears, nose, mouth, throat: DENIES: Tinnitus, Hearing loss, Vertigo, Nasal discharge, Oral lesions, Throat pain, Hoarseness, Ear Pain, Running Nose, Epistaxis, Sinus Pain, Toothache, Odynophagia Respiratory: DENIES: Apneas, Cough, Snoring, Wheezing, Hemoptysis, Sputum production, Shortness of breath Cardiovascular: DENIES: Chest pain, Palpitations, Syncope, Dyspnea on Exertion , PND, Lower Extremity Edema, Orthopnea, Claudication Gastrointestinal: DENIES: Abdominal pain, Black stools, Bloody stools, Constipation, Diarrhea, Nausea, Vomiting, Difficulty Swallowing, Anorexia Genitourinary: DENIES: Sexual dysfunction, Urinary frequency, Urinary incontinence, Urgency, Hematuria, Dysuria, Nocturia, Penile Discharge, Testicular Pain, Testicular Swelling Musculoskeletal: DENIES: Joint pain, Muscle aches, Stiffness, Joint Swelling, Back pain, Neck pain Integumentary: DENIES: Abnormal pigmentation, Nail changes, Pruritus, Rash Hematologic/lymphatic: DENIES: Bruising, Lymphadenopathy Immunologic/allergic: DENIES: Eczema, Urticaria Neurologic: DENIES: Abnormal gait, Headache, Localized weakness, Paresthesias, Seizures, Speech Problems, Tremor, Poor Balance Psychiatric: DENIES: Anxiety, Confusion, Mood changes, Depression, Hallucinations, Agitation, Suicidal Ideation, Homicidal Ideation, Delusions Except as stated in HPI: all other systems reviewed are Neg Past Family Social History Allergies: Coded Allergies: *MDRO Multi-Drug Resistant Organism (Verified Adverse Reaction, Unknown, ) MRSA Peritoneal Fluid 11/01/16 Past Medical History Hemochromatosis Cirrhosis with ascites Esophageal varices leading to GI bleed Recurrent umbilical hernia GERD Hyperglycemia/ ? DM Past Surgical History Umbilical hernia repair 2 several years ago in [place] Liver biopsy regarding hemochromatosis Esophageal varices banding. Reported Medications Reported Meds & Active Scripts Active Reported Metformin (Metformin HCl) 500 Mg Tab 500 Mg PO BIDPC With meals Omeprazole 20 Mg Tab 20 Mg PO DAILY Nadolol 20 Mg Tab 20 Mg PO DAILY Active Ordered Medications Current Medications Medications (Trade) Dose Ordered Sig/Gian Route Start Time Stop Time Status Last Admin (Glucophage) 500 mg BIDPC PO 10/27/16 09:00 11/04/16 18:21 (Corgard) 20 mg DAILY PO 10/27/16 09:00 11/04/16 09:10 (Protonix) 20 mg DAILY PO 10/27/16 09:00 11/04/16 09:10 (Colace) 100 mg BID PO 5/16/17 21:00 11/04/16 09:10 (Lactulose Liq) 30 ml DAILY PRN PO 10/28/16 18:15 10/29/16 10:42 Spironolactone 100 mg 100 mg QID PO 11/02/16 13:00 11/04/16 19:42 Pharmacy Profile Note 0 ml @ 0 mls/hr UNSCH OTHER 11/03/16 16:00 (Vancomycin Inj/ NS 500 ml Inj) 515 ml @ 257.5 mls/ hr Q12H IV 11/03/16 18:00 11/04/16 18:21 Miscellaneous Information SPECIFIC LAB TO BE LUCIA... ONCE ONCE .XX 11/05/16 05:45 11/05/16 05:46 (Tylenol) 650 mg Q4H PRN PO 11/03/16 16:15 (Zofran Inj) 4 mg Q6H PRN IV 11/03/16 16:15 Family History Mother at age 74 of COPD complications Father at age 77 of alcoholic cirrhosis Social History Patient previously lived in [place], [place] and [place], moved here in March 2016.. Reportedly had not had ascites until a few months ago No tobacco, denies illicit drug use, no alcohol since June 2016 but did used to drink 2-3 drinks several times a week socially. Retired from sales. Work with [employer] most recently. Specifically denies any history of IV drug abuse. He has no children. His brother is his next of kin and lives nearby him. Physical Exam Vital Signs Vital Signs Date Time Temp Pulse Resp B/P Pulse Ox O2 Delivery O2 Flow Rate FiO2 11/04/16 12:00 97.7 66 18 108/57 97 11/04/16 08:00 97.4 67 18 119/57 96 11/04/16 00:00 99.1 73 20 103/54 94 11/03/16 20:00 97.6 73 20 112/59 95 11/03/16 16:00 98.3 70 20 122/57 95 Physical Exam GENERAL: This is a well-nourished, well-developed patient, in no apparent distress. SKIN: No rashes, ecchymoses or lesions. Cool and dry. HEAD: Atraumatic. Normocephalic. No temporal or scalp tenderness. EYES: Pupils equal round and reactive. Extraocular motions intact. No scleral icterus. No injection or drainage. ENT: Nose without bleeding, purulent drainage or septal hematoma. Throat without erythema, tonsillar hypertrophy or exudate. Uvula midline. Airway patent. NECK: Trachea midline. Supple, nontender, no meningeal signs. CARDIOVASCULAR: RRR RESPIRATORY: Clear to auscultation. Breath sounds equal bilaterally. No wheezes , rales, or rhonchi. GASTROINTESTINAL: Abdomen soft, umbilicus everted and ? erosion of umbilical skin over which is a colostomy bag. MUSCULOSKELETAL: Extremities without clubbing, cyanosis, or edema. No joint tenderness, effusion, or edema noted. No calf tenderness. Negative Homans sign bilaterally. NEUROLOGICAL: Awake and alert. Grossly non focal. Psych: cooperative IV line sites with no e.o infection. Laboratory Laboratory Tests Test 11/04/16 11/04/16 04:54 04:57 White Blood Count 4.9 Red Blood Count 3.52 Hemoglobin 12.0 Hematocrit 33.2 Mean Corpuscular Volume 94.3 Mean Corpuscular Hemoglobin 34.0 Mean Corpuscular Hemoglobin 36.1 Concent Red Cell Distribution Width 14.6 Platelet Count 57 Mean Platelet Volume 9.2 Neutrophils (%) (Auto) 67.3 Lymphocytes (%) (Auto) 11.1 Monocytes (%) (Auto) 16.8 Eosinophils (%) (Auto) 4.3 Basophils (%) (Auto) 0.5 Neutrophils # (Auto) 3.3 Lymphocytes # (Auto) 0.5 Monocytes # (Auto) 0.8 Eosinophils # (Auto) 0.2 Basophils # (Auto) 0.0 CBC Comment AUTO DIFF Differential Comment AUTO DIFF CONFIRMED Platelet Estimate LOW Platelet Morphology Comment NORMAL Sodium Level 128 Potassium Level 4.5 Chloride Level 94 Carbon Dioxide Level 24.9 Anion Gap 9 Blood Urea Nitrogen 20 Creatinine 0.83 Estimat Glomerular Filtration 94 Rate Random Glucose 92 Calcium Level 9.6 Magnesium Level 1.7 Date/Time Procedure Status Source Growth 11/01/16 16:33 Gram Stain - Final Complete Fluid Peritoneal Fluid 11/01/16 16:33 Body Fluid Culture - Final Complete S. Aureus Mrsa Result Diagram: 11/04/16 0454 11/04/16 0457 Imaging Last Impressions Abdomen Ultrasound 10/29/16 0000 Signed Impressions: Service Date/Time: Saturday, October 29, 2016 14:36 - CONCLUSION: No significant ascites as described above. Aryan Macias MD FACR Assessment and Plan Assessment and Plan Possible MRSA peritonitis (unfortunately lab and cultures using formal paracentesis cannot be sent as pt spontaneously draining from umbilicus) Having said that umbilicus is a common site for MRSA colonization due to skin crevices and folds inherently with the anatomical site. Hereditary Haemochromatosis by history Possible hepatocellular carcinoma Alcoholism (reports quit in Jun 2016) Recs: Continue Vanco IV (target 10-15) Indication: MRSA peritonitis. Follow cultures Follow clinically. Reassess if patient can have formal paracentesis. Follow cytology ascitic fluid. Marylin Ely my above concerns about testing using fluid from bag. Tatum Murphy MD November 04, 2016 15:06
[2016-11-04 16:00] VITALS: BP 117/69; PULSE 66; RESP 18; TEMP 96.4; O2SAT 98
--- NOTE | 2016-11-04 16:33 | HHI.PR ---
Subjective Remarks Pt has had out about 700cc of bloody ascetic fluid last night and so far today Afebrile No new complaints. Objective Vitals Vital Signs Date Time Temp Pulse Resp B/P Pulse Ox O2 Delivery O2 Flow Rate FiO2 11/04/16 16:00 96.4 66 18 117/69 98 11/04/16 12:00 97.7 66 18 108/57 97 11/04/16 08:00 97.4 67 18 119/57 96 11/04/16 00:00 99.1 73 20 103/54 94 11/03/16 20:00 97.6 73 20 112/59 95 11/03/16 11/03/16 11/04/16 14:59 22:59 06:59 Intake Total 480 ml 240 ml Output Total 25 ml 250 ml 550 ml Balance -25 ml 230 ml -310 ml Intake Oral 480 ml 240 ml Drainage Total 25 ml 250 ml 550 ml # Voids 2 1 # Bowel Movements 0 0 Result Diagram: 11/04/16 0454 11/04/16 0457 Other Results Laboratory Tests Test 11/03/16 11/04/16 11/04/16 05:15 04:54 04:57 Sodium Level 128 MEQ/L 128 MEQ/L Potassium Level 4.7 MEQ/L 4.5 MEQ/L Chloride Level 95 MEQ/L 94 MEQ/L Carbon Dioxide Level 24.2 MEQ/L 24.9 MEQ/L Anion Gap 9 MEQ/L 9 MEQ/L Blood Urea Nitrogen 18 MG/DL 20 MG/DL Creatinine 0.74 MG/DL 0.83 MG/DL Estimat Glomerular Filtration 108 ML/MIN 94 ML/MIN Rate Random Glucose 88 MG/DL 92 MG/DL Calcium Level 10.1 MG/DL 9.6 MG/DL White Blood Count 4.9 TH/MM3 Red Blood Count 3.52 MIL/MM3 Hemoglobin 12.0 GM/DL Hematocrit 33.2 % Mean Corpuscular Volume 94.3 FL Mean Corpuscular Hemoglobin 34.0 PG Mean Corpuscular Hemoglobin 36.1 % Concent Red Cell Distribution Width 14.6 % Platelet Count 57 TH/MM3 Mean Platelet Volume 9.2 FL Neutrophils (%) (Auto) 67.3 % Lymphocytes (%) (Auto) 11.1 % Monocytes (%) (Auto) 16.8 % Eosinophils (%) (Auto) 4.3 % Basophils (%) (Auto) 0.5 % Neutrophils # (Auto) 3.3 TH/MM3 Lymphocytes # (Auto) 0.5 TH/MM3 Monocytes # (Auto) 0.8 TH/MM3 Eosinophils # (Auto) 0.2 TH/MM3 Basophils # (Auto) 0.0 TH/MM3 CBC Comment AUTO DIFF Differential Comment AUTO DIFF CONFIRMED Platelet Estimate LOW Platelet Morphology Comment NORMAL Magnesium Level 1.7 MG/DL Imaging Last Impressions Abdomen Ultrasound 10/29/16 0000 Signed Impressions: Service Date/Time: Saturday, October 29, 2016 14:36 - CONCLUSION: No significant ascites as described above. Aryan Macias MD FACR Objective Remarks General: NAD, AAOx3 Chest: CTA Cardiac: Regular Abd: +BS, soft, collection bag attached to umbilicus draining red tinged fluid. Ext: No edema A/P Problem List: (1) Liver cirrhosis Status: Chronic Plan: - Pt is a 61 y/o male with hepatic cirrhosis, esophageal varices, hx of regular alcohol use (none since 06/2016) and hereditary hemochromatosis. - He presented to [facility] due to bloody drainage from his umbilical hernia. - Pt has known liver cirrhosis and more recently has required frequent large volume paracentesis. - His last therapeutic paracentesis was on 10/22/16 with removal of 15,300cc of blood tinged ascetic fluid. - Pt was not on any diuretic therapy prior to admission. - As an outpt pt was seen by Dr. Ventura (Oncology) in September 2016 for followup for hemochromatosis and concern for hepatocellular carcinoma with report of MRI imaging abnormalities suggesting enlarging hepatic lesions from 08/20/2016. His AFP 9.5 on 09/22/2016. Because of significant risks associated with liver biopsy, PET/CT scan was ordered in lieu, which was completed on 10/07/2016 and per outpt records this demonstrated a 4.1 x 4.0 cm mass along the inferior aspect right lobe with low grade uptake concerning for malignancy. - Spoke with IR, Dr. Macias, who reports that there is no ascites to drain from his abdomen as he is actively draining from the umbilicus - Pt was getting IV Albumin Q8H until 11/02. - Cont. Aldactone. We have been titrating up slowly (currently on Aldactone 100mg QID) to monitor for RAJENDRA and hypotension. His BP is tolerating so far and kidney function stable. - Cont. to monitor electrolytes and renal function - His ascitic drainage slowed today to 700cc so far - He had a fever over the weekend and ascitic fluid grew out MRSA. - Pt was given po Levaquin from 10/31-11/03 and a dose of Vancomycin IV on 11/02. MRSA resistant to Levaquin so this was stopped and Abx changed to Vancomycin IV with pharmacy dosing on 11/03. - Appreciate ID consultation. - [facility] has refused to evaluate pt until December when 6month is up from last EtOH drink - [facility] has agreed to accept patient for treatment of HCC +/- transplant evaluation if there is no vascular involvement but pt was not cleared for hospital to hospital transfer. Possible evaluation as outpatient. - Cytology (10/29) neg. Repeat cytology is pending. - Monitor labs and clinical status closely. (2) Recurrent umbilical hernia Status: Chronic Plan: - See above. (3) Ascites Status: Chronic Plan: - See above. - Likely assoc with multifactorial cirrhosis, related to hemochromatosis and hx of alcohol use. - No signs of infectious process. (4) Hemochromatosis Status: Chronic Plan: - s/p multiple phlebotomies. - Outpt imaging does not indicate iron deposition in liver at this point. - Most recent labs on 09/22/16 with Ferritin 71, Serum iron 122, TIBC 175, %sat 69.7 (5) Chronic GERD Status: Chronic Plan: - Continue PPI (6) Hyperglycemia Status: Chronic Plan: - He has type 2 diabetes managed with metformin, without any history of nephropathy, neuropathy or retinopathy. - Hgb A1c is 5.4%. - Continue metformin for now. - DM diet. Assessment and Plan Patient examined. Assessment and plan formulated with Louisa Ga PA-C. I agree with the above. Problem Qualifiers (1) Ascites: Qualified Code: R18.8 - Other ascites Louisa Ga November 04, 2016 16:33 Rivas Hightower DO November 05, 2016 14:32
[2016-11-04 20:00] VITALS: BP 110/59; PULSE 73; RESP 22; TEMP 98; O2SAT 95
[2016-11-05] VITALS: BP 108/54; PULSE 70; RESP 20; TEMP 98.3; O2SAT 96
[2016-11-05] MEDS ORDERED: PHARMACY ORDERED LAB ONE (05:45)
[2016-11-05 05:57] LABS: VANCOMYCIN TROUGH 18.2 MCG/ML (5.0-10.0)
[2016-11-05] MEDS: VANCOMYCIN INJ 1,500 MG in SODIUM CHLORID 0.9% 500 ML INJ 500 ML IV SCH (06:08)
[2016-11-05 08:00] VITALS: BP 120/51; PULSE 63; RESP 16; TEMP 97; O2SAT 96
[2016-11-05] MEDS: DOCUSATE SODIUM 100 MG CAP PO SCH ×2 (08:52→20:06)
[2016-11-05] MEDS: NADOLOL 20 MG TAB PO SCH (08:52)
[2016-11-05] MEDS: SPIRONOLACTONE 100 MG TAB PO SCH ×4 (08:52→22:09)
[2016-11-05] MEDS: PANTOPRAZOLE SOD 20 MG DELAYED RELEASE TAB PO SCH (08:52)
[2016-11-05] MEDS: metFORMIN HCL 500 MG TAB PO SCH ×2 (08:52→17:43)
[2016-11-05 12:00] VITALS: BP 107/59; PULSE 63; RESP 16; TEMP 95.8; O2SAT 95
--- NOTE | 2016-11-05 14:34 | HHI.GIFU ---
Subjective Remarks Patient still with significant spontaneous drainage about 700 ml in the collection bag. Other welch, he denies nausea, vomiting, abd pain or hematochezia. (Tarun Castillo) Objective Vitals I&O Vital Signs Date Time Temp Pulse Resp B/P Pulse Ox O2 Delivery O2 Flow Rate FiO2 11/05/16 12:00 95.8 63 16 107/59 95 11/05/16 08:00 97.0 63 16 120/51 96 11/05/16 00:00 98.3 70 20 108/54 96 11/04/16 20:00 98.0 73 22 110/59 95 11/04/16 16:00 96.4 66 18 117/69 98 I/O 11/04/16 11/04/16 11/04/16 11/05/16 11/05/16 11/05/16 07:00 15:00 23:00 07:00 15:00 23:00 Intake Total 240 ml 340 ml 480 ml 240 ml Output Total 550 ml 150 ml 400 ml 450 ml 500 ml Balance -310 ml 190 ml 80 ml -210 ml -500 ml Intake Oral 240 ml 340 ml 480 ml 240 ml Drainage Total 550 ml 150 ml 400 ml 450 ml 500 ml # Voids 1 3 1 1 # Bowel Movements 0 1 1 0 Laboratory Laboratory Tests Test 11/05/16 04:35 Creatinine 0.74 Estimat Glomerular Filtration 108 Rate Vancomycin Level Trough 18.2 Date/Time Procedure Status Source Growth 11/01/16 16:33 Gram Stain - Final Complete Fluid Peritoneal Fluid 11/01/16 16:33 Body Fluid Culture - Final Complete S. Aureus Mrsa Imaging Last Impressions Abdomen Ultrasound 10/29/16 0000 Signed Impressions: Service Date/Time: Saturday, October 29, 2016 14:36 - CONCLUSION: No significant ascites as described above. Aryan Macias MD FACR Physical Exam HEENT: Normocephalic; atraumatic; no jaundice. CHEST: CTA CARDIAC: RRR ABDOMEN: Soft, nontender; bowel sounds are present in all four quadrants, collection bag attached to umbilicus draining moderate amount of red tinged fluid. EXTREMITIES: No clubbing, cyanosis, or edema. SKIN: Normal; no rash; no jaundice. CONSTRUCTION PROJECT COORDINATOR: No focal deficits; alert and oriented times three. (Tarun Castillo) Assessment and Plan Plan ASSESSMENT - Liver Cirrhosis with Hemochromatosis and past ETOH use. He was diagnosed with hemochromatosis at age 34 and has been treated with multiple phlebotomies in the past. He continued to drink ETOH until July 102016. He now abstains from ETOH. He cannot tell me exactly when he was diagnosed with liver cirrhosis and states that he has "never been formally diagnosed," however, he does report that he was told at age 38 that he had scarring on his liver. Unfortunately, much of his workup was at another facility and I do not have records to this. Hepatitis panel negative, BELINDA negative. AMA < 20.0, ASMA positive 1:80, Ferritin 87, Iron Saturation 70.5, alpha 1 antitrypsin 111, Ceruloplasmin 18, AFP 9.4, CEA 27.9. - Liver mass, possible hepatocellular carcinoma. MRI (08/20/16)---> There are 2 very small hypervascular lesions within the dome of the liver. These are not seen on the dealyed imaging with EOVIST. THe hypervascular enhancement is somewhat concerning. They are too small to biopsy and their location would make biopsy extremely difficult. FU MR in 6 months to ensure stability is warranted. Malignancy is not definitely excluded. 3.4 x 3.3 cm area of decreased contrast enhancement along the right lobe of the liver inferiorly probably representing a regenerating nodule. Splenomegaly with ascites and cirrhosis consistent with portal hypertension. There is a history of hemochromatosis however, there is no significant signal dropout within the liver on vamsi T2 weighted axial imaging. This would suggest there is no significant iron deposition within the liver at this time. PET Scan (10/07/16)---> demonstrated a 4.1 x 4.0 mass along the inferior aspect right lobe with low uptake concerning for malignancy. AFP 9.4 CEA 27.9. Pt has not been approved for hospital to hospital transfer. Will continue current treatment and consider outpatient evaluation at time of discharge. - Recurrent Ascites. Pt has been getting paracentesis, but has not been medically optimized and has not been on diuretics at home. He has an umbilical hernia with significant ascitic leak due to erosion of his umbilical skin. He is being followed by [facility], but there are no current plans for surgical intervention secondary to the significant ascitic leak which would erode any attempted repair of the hernia and/or skin. Fluid Cx S. Aureus MRSA. On Vanco. Spironolactone. 825cc ascites drainage out today - Anemia. Mild stable EGD (05/2015)----> Jones's esophagus, gastritis, normal duodenum. Colonoscopy (03/30/12)----> diverticulosis in sigmoid, dense with fibrosis and diverticulosis in descending, moderate. Small nonbleeding internal hemorrhoids. - Umbilical hernia. Followed by [facility]. No surgical plans until he is medically optimized with diuretics for his ascites. - Thrombocytopenia. Plt 57,000. - Hyponatremia, Asthma, HTN PLAN - Low sodium diet - Cont. Spironolactone - Cont. Vanco - Monitor labs - Pt declined by [facility], they will not consider transplant evaluation until patient has been alcohol free for 6 months- January 07 - [facility] have agreed to accept patient for treatment of HCC +/- transplant evaluation if there is no vascular involvement and if patient has been cleared by [facility]. Pt has not been cleared for hospital to hospital transfer. Possible evaluation as outpatient. - Further recommendations to follow based on results of above - Pt seen and examined by Dr. Ball and myself and this note is written on his behalf (Tarun Castillo) Physician Comments Patient seen and examined Agree with above Continue with current supportive care Monitor labs (Chandana Ball MD) Tarun Castillo November 05, 2016 14:34 Chandana Ball MD November 05, 2016 21:12
--- NOTE | 2016-11-05 14:38 | HHI.PR ---
Subjective Remarks No new complaints. Objective Vitals Vital Signs Date Time Temp Pulse Resp B/P Pulse Ox O2 Delivery O2 Flow Rate FiO2 11/05/16 12:00 95.8 63 16 107/59 95 11/05/16 08:00 97.0 63 16 120/51 96 11/05/16 00:00 98.3 70 20 108/54 96 11/04/16 20:00 98.0 73 22 110/59 95 11/04/16 16:00 96.4 66 18 117/69 98 11/04/16 11/04/16 11/05/16 15:00 23:00 07:00 Intake Total 340 ml 480 ml 240 ml Output Total 150 ml 400 ml 450 ml Balance 190 ml 80 ml -210 ml Intake Oral 340 ml 480 ml 240 ml Drainage Total 150 ml 400 ml 450 ml # Voids 3 1 1 # Bowel Movements 1 1 0 Result Diagram: 11/04/16 0454 11/05/16 0435 Imaging Last Impressions Abdomen Ultrasound 10/29/16 0000 Signed Impressions: Service Date/Time: Saturday, October 29, 2016 14:36 - CONCLUSION: No significant ascites as described above. Aryan Macias MD FACR Objective Remarks General: NAD, AAOx3 Chest: CTA Cardiac: Regular Abd: +BS, soft, collection bag attached to umbilicus draining red tinged fluid. Ext: No edema A/P Problem List: (1) Liver cirrhosis Status: Chronic Plan: - Pt is a 61 y/o male with hepatic cirrhosis, esophageal varices, hx of regular alcohol use (none since 06/2016) and hereditary hemochromatosis. - He presented to [facility] [place] due to bloody drainage from his umbilical hernia. - Pt has known liver cirrhosis and more recently has required frequent large volume paracentesis. - His last therapeutic paracentesis was on 10/22/16 with removal of 15,300cc of blood tinged ascetic fluid. - Pt was not on any diuretic therapy prior to admission. - As an outpt pt was seen by Dr. Ventura (Oncology) in September 2016 for followup for hemochromatosis and concern for hepatocellular carcinoma with report of MRI imaging abnormalities suggesting enlarging hepatic lesions from 08/20/2016. His AFP 9.5 on 09/22/2016. Because of significant risks associated with liver biopsy, PET/CT scan was ordered in lieu, which was completed on 10/07/2016 and per outpt records this demonstrated a 4.1 x 4.0 cm mass along the inferior aspect right lobe with low grade uptake concerning for malignancy. - Spoke with IR, Dr. Macias, who reports that there is no ascites to drain from his abdomen as he is actively draining from the umbilicus - Pt was getting IV Albumin Q8H until 11/02. - Cont. Aldactone. We have been titrating up slowly (currently on Aldactone 100mg QID) to monitor for RAJENDRA and hypotension. His BP is tolerating so far and kidney function stable. - Cont. to monitor electrolytes and renal function - His ascitic drainage slowed today to 700cc so far - He had a fever over the weekend and ascitic fluid grew out MRSA. - Pt was given po Levaquin from 10/31-11/03 and a dose of Vancomycin IV on 11/02. MRSA resistant to Levaquin so this was stopped and Abx changed to Vancomycin IV with pharmacy dosing on 11/03. - Appreciate ID consultation. - [facility] has refused to evaluate pt until December when 6month is up from last EtOH drink - [facility] has agreed to accept patient for treatment of HCC +/- transplant evaluation if there is no vascular involvement but pt was not cleared for hospital to hospital transfer. Possible evaluation as outpatient. - Cytology (10/29) neg. Repeat cytology is pending. - Monitor labs and clinical status closely. - Case d/w ID, Dr. Murphy, (11/05/16). Pt will require 2 weeks of IV Vancomycin treatment - will d/c to SNF with PICC to complete course of IV Vancomycin. - still awaiting cytology. - If no definitive dx from cytology, could possibly readmit after course of antibiotics to obtain liver biopsy. or send to [facility] for outpt evaluation (2) Recurrent umbilical hernia Status: Chronic Plan: - See above. (3) Ascites Status: Chronic Plan: - See above. - Likely assoc with multifactorial cirrhosis, related to hemochromatosis and hx of alcohol use. - No signs of infectious process. (4) Hemochromatosis Status: Chronic Plan: - s/p multiple phlebotomies. - Outpt imaging does not indicate iron deposition in liver at this point. - Most recent labs on 09/22/16 with Ferritin 71, Serum iron 122, TIBC 175, %sat 69.7 (5) Chronic GERD Status: Chronic Plan: - Continue PPI (6) Hyperglycemia Status: Chronic Plan: - He has type 2 diabetes managed with metformin, without any history of nephropathy, neuropathy or retinopathy. - Hgb A1c is 5.4%. - Continue metformin for now. - DM diet. Problem Qualifiers (1) Ascites: Qualified Code: R18.8 - Other ascites Rivas Hightower DO November 05, 2016 14:38
--- NOTE | 2016-11-05 15:00 | HHI.IDPN ---
Subjective Subjective Remarks is a 61 y/o CM with PMHx significant for ? hereditary hemochromatosis h/o blood letting phlebotomy for treatment, alcoholism with liver disease, recurrent ascitis s/p large volume paracentesis, liver mass under investigation with suspicion of ? Hepatocellular carcinoma. Reportedly, patient has been seen outpatient by GI as well as Oncology and there is a concern that the liver mass is a malignancy. Patient self reports h/o umbilical hernia repair in past x 2 in [place] (raising suspicion that this disease process could have been longer than last 3 months). Patient also reports outpatient therapeutic tap large volumes but not on diuretics per review of other MD records. With this background patient is admitted with complains of spontaneous drainage of fluid from his umbilical hernia which started a few hours prior to arrival. He was a social drinker, but reportedly he has not drank alcohol since June 2016. He has not had any fever or chills. There is no history of trauma. He reports he overall feels fine but is concerned that he continues to have blood-tinged serous discharge from his umbilicus. General surgery is on case. During his stay he has been spontaneously draining serosanguinous fluid from umbilicus and a colostomy bag is attached to it. The lab and culture studies appear to have been sent using fluid from this bag from what I see in chart. IR was consulted but reportedly his US always shows no ascites although he continues to drain large volume fluid. Cultures from this bag grew MRSA and pathology for cytology from this bag has been sent and pending at time of my evaluation. ID consulted for evaluation and Mment of MRSA peritonitis. Overnight events reviewed no fevers No rash No diarrhea Antibiotics Vanco IV Lines Line sites with no e.o infection Past Medical History reviewed Allergies: Coded Allergies: *MDRO Multi-Drug Resistant Organism (Verified Adverse Reaction, Unknown, ) MRSA Peritoneal Fluid 11/01/16 Objective . Vital Signs Date Time Temp Pulse Resp B/P Pulse Ox O2 Delivery O2 Flow Rate FiO2 11/05/16 12:00 95.8 63 16 107/59 95 11/05/16 08:00 97.0 63 16 120/51 96 11/05/16 00:00 98.3 70 20 108/54 96 11/04/16 20:00 98.0 73 22 110/59 95 11/04/16 16:00 96.4 66 18 117/69 98 11/04/16 11/04/16 11/05/16 15:00 23:00 07:00 Intake Total 340 ml 480 ml 240 ml Output Total 150 ml 400 ml 450 ml Balance 190 ml 80 ml -210 ml Intake Oral 340 ml 480 ml 240 ml Drainage Total 150 ml 400 ml 450 ml # Voids 3 1 1 # Bowel Movements 1 1 0 . Laboratory Tests Test 11/04/16 04:54 White Blood Count 4.9 TH/MM3 Red Blood Count 3.52 MIL/MM3 Hemoglobin 12.0 GM/DL Hematocrit 33.2 % Mean Corpuscular Volume 94.3 FL Mean Corpuscular Hemoglobin 34.0 PG Mean Corpuscular Hemoglobin 36.1 % Concent Red Cell Distribution Width 14.6 % Platelet Count 57 TH/MM3 Mean Platelet Volume 9.2 FL Neutrophils (%) (Auto) 67.3 % Lymphocytes (%) (Auto) 11.1 % Monocytes (%) (Auto) 16.8 % Eosinophils (%) (Auto) 4.3 % Basophils (%) (Auto) 0.5 % Neutrophils # (Auto) 3.3 TH/MM3 Lymphocytes # (Auto) 0.5 TH/MM3 Monocytes # (Auto) 0.8 TH/MM3 Eosinophils # (Auto) 0.2 TH/MM3 Basophils # (Auto) 0.0 TH/MM3 CBC Comment AUTO DIFF Differential Comment AUTO DIFF CONFIRMED Platelet Estimate LOW Platelet Morphology Comment NORMAL Laboratory Tests Test 11/04/16 11/05/16 04:57 04:35 Sodium Level 128 MEQ/L Potassium Level 4.5 MEQ/L Chloride Level 94 MEQ/L Carbon Dioxide Level 24.9 MEQ/L Anion Gap 9 MEQ/L Blood Urea Nitrogen 20 MG/DL Creatinine 0.83 MG/DL 0.74 MG/DL Estimat Glomerular Filtration 94 ML/MIN 108 ML/MIN Rate Random Glucose 92 MG/DL Calcium Level 9.6 MG/DL Magnesium Level 1.7 MG/DL Imaging Last Impressions Chest X-Ray 11/05/16 0000 Signed Impressions: Service Date/Time: Saturday, November 05, 2016 16:24 - CONCLUSION: Satisfactory PICC line positioning Low Kruse MD Abdomen Ultrasound 10/29/16 0000 Signed Impressions: Service Date/Time: Saturday, October 29, 2016 14:36 - CONCLUSION: No significant ascites as described above. Aryan Macias MD FACR Physical Exam GENERAL: This is a well-nourished, well-developed patient, in no apparent distress. SKIN: No rashes, ecchymoses or lesions. Cool and dry. HEAD: Atraumatic. Normocephalic. No temporal or scalp tenderness. EYES: Pupils equal round and reactive. Extraocular motions intact. No scleral icterus. No injection or drainage. ENT: Nose without bleeding, purulent drainage or septal hematoma. Throat without erythema, tonsillar hypertrophy or exudate. Uvula midline. Airway patent. NECK: Trachea midline. Supple, nontender, no meningeal signs. CARDIOVASCULAR: RRR RESPIRATORY: Clear to auscultation. Breath sounds equal bilaterally. No wheezes , rales, or rhonchi. GASTROINTESTINAL: Abdomen soft, umbilicus everted and ? erosion of umbilical skin over which is a colostomy bag. MUSCULOSKELETAL: Extremities without clubbing, cyanosis, or edema. No joint tenderness, effusion, or edema noted. No calf tenderness. Negative Homans sign bilaterally. NEUROLOGICAL: Awake and alert. Grossly non focal. Psych: cooperative IV line sites with no e.o infection. Assessment & Plan Remarks Possible MRSA peritonitis (unfortunately lab and cultures using formal paracentesis cannot be sent as pt spontaneously draining from umbilicus) Having said that umbilicus is a common site for MRSA colonization due to skin crevices and folds inherently with the anatomical site. Hereditary Haemochromatosis by history Possible hepatocellular carcinoma Alcoholism (reports quit in Jun 2016) Recs: Continue Vanco IV (target 10-15) Indication: MRSA peritonitis. Follow cultures Follow clinically. Rigoberto Ely DC plan. Post hospital infusion orders in chart. rigoberto Ely and case management order placed. Tatum Murphy MD November 05, 2016 15:00
[2016-11-05 16:00] VITALS: BP 113/56; PULSE 69; RESP 18; TEMP 97.9; O2SAT 95
--- NOTE | 2016-11-05 16:00 | PD.CONS ---
Consult Service Palliative Care . Consult Requested By Dr. Hightower . Primary Care Physician Gigi Kelley MD . Reason for Consultation a. To assist with evaluation and management of symptoms including: pain, anxiety b. To assist medical decision maker(s) with: better understanding of current medical conditions; weighing benefits/burdens of medical treatment options; making medical treatment decisions. . (Rashida Jean) HPI History of Present Illness Mr. Jackman is a 61 year old male with a past medical history the includes hepatic cirrhosis (likely secondary to a combination of heavy EtOH consumption and hemochromatosis) with ascites, h/o esophageal varices/GI bleed, asthma, diabetes and a liver mass-suspicious for hepatocellular cancer. The patient has a history of ascites requiring paracentesis on several occasions, most recently on 10/22/2016 at which time >15L of fluid was withdrawn. Mr. Jackman presented to [facility] ED in [place] on 10/26/16 for evaluation of ascitic fluid leaking from his umbilicus with erosion of the skin due to pressure. Of note, the patient is followed by Dr. Ventura (hematology/oncology) and Dr. Olivo ( gastroenterology) outpatient. He has a known lesion in the right lobe of the liver but it has not been biopsied at this point. Additional diagnostics findings in the ED: * Vital signs: Pulse 77, respirations 14, blood pressure 139/74, oxygen saturation 97% on room air, oral temperature 98.0 * WBC: 6.3, hemoglobin 13.8, hematocrit 40.5, platelets 123, neutrophils 64.3% * Sodium: 129, potassium 4.3, chloride 92, carbon dioxide 28.4, glucose 142, calcium 9.2 * BUN: 14, creatinine 0.86, GFR 90 * Total bilirubin: 2.9, AST 63, ALT 45, alkaline phosphatase 146 * Total protein: 8.2, albumin 3.2 * PT: 15.2, INR 1.4, APTT 34.0 * Negative blood cultures The patient initially admitted in [place] but was transferred to [facility] for further medical control of this significant issue. General surgery was consulted. Dr. Parekh of general surgery evaluated the patient. On exam, the patient's abdomen is soft and has a fluid wave consistent with residual ascites. He has been noted to put out over 2 L of fluid in the last few hours. There is absolutely no evidence of tenderness, guarding, or rebound. The patient has obvious excoriation at the umbilical hernia site which now has a stoma bag over it to collect the fluid. Recommendations for aggressive fluid therapy, albumin supplement secondary to ongoing ascitic fluid leak. Patient is at risk for hepatorenal syndrome Not a candidate for surgical interventions secondary to the significance of the ascitic leak. Dr. Mantilla, gastroenterology, made recommendations for paracentesis with ultrasound guidance to remove the ascitic fluid. Additional recommendations to send fluid for cell count and cytology. Would consider percutaneous biopsy status post paracentesis. A colostomy was placed over the umbilical hernia, with approximately 2L of bloody ascitic drainage from the umbilical hernia throughout the day. Cytology on 10/29/16 negative for malignant cells-repeat cytology pending Dr. Ventura (hematology/oncology) is familiar with Mr. Jackman, who was initially seen in September, as an outpatient consultation for follow-up on hemochromatosis and possible hepatocellular carcinoma with report of MRI imaging which showed abnormalities suspicious for enlarging pathic lesions from 08/20/16. AFP of 9.5 on September 22, 2016. Biopsy was deferred at that time due to the associated risks. PET/CT scan on 10/07/2016 revealed a 4.1 x 4.0 cm mass along the inferior aspect of the right lobe with low-grade uptake concerning for malignancy. Patient became febrile over the weekend. Peritoneal fluid culture growing staph aureus MRSA (cultures could not be obtained via paracentesis as the patient has spontaneous drainage of ascitic fluid from the umbilicus). ID was consulted for management of MRSA peritonitis. Patient received PO Levaquin from 10/31/ and vancomycin IV 1 on 11/02/16; antibiotic was changed to vancomycin on 11/03 has MRSA resistant to Levaquin. Of note, [facility] has agreed to accept the patient for treatment of hepatocellular carcinoma, and possible transplant evaluation if there is no vascular involvement. However patient was not cleared for hospital to hospital transfer , possible outpatient follow-up. . Function/Cognitive Trajectory Patient reports prior to this hospitalization he was fully functional, able to drive to the store and independent for all ADLs. He does admit to increased weakness. Appetite remains stable. He states although he has likely gained pounds secondary to ascites, he feels that he has lost muscle mass. . (Rashida Jean) Review of Systems ROS Limitations: Clinical Condition Constitutional: COMPLAINS OF: Fatigue, Fever (patient became febrile over the weekend. Tmax on 11/01/16 101.1), Weight loss (muscle mass loss reported), DENIES: Change in appetite Endocrine: DENIES: Polydipsia, Polyuria, Polyphagia Ears, nose, mouth, throat: DENIES: Epistaxis Respiratory: DENIES: Hemoptysis Cardiovascular: DENIES: Lower Extremity Edema Gastrointestinal: DENIES: Constipation, Diarrhea, Nausea, Vomiting Hematologic/Lymphatics: COMPLAINS OF: Bruising Neurologic: COMPLAINS OF: Abnormal gait, DENIES: Seizures Psychiatric: DENIES: Depression, Suicidal Ideation, Homicidal Ideation (Rashida Jean) Past Family Social History Coded Allergies: *MDRO Multi-Drug Resistant Organism (Verified Adverse Reaction, Unknown, ) MRSA Peritoneal Fluid 11/01/16 Past Medical History Esophageal varices leading to GI bleed Asthma Cirrhosis with ascites EtOH abuse Recurrent umbilical hernia GERD Hemochromatosis Liver mass 2017, concerning for hepatocellular cancer . Past Surgical History Umbilical hernia repair 2 several years ago in [place] Liver biopsy regarding hemochromatosis Esophageal varices banding Reported Medications Metformin (Metformin HCl) 500 Mg Tab 500 Mg PO BIDPC With meals Omeprazole 20 Mg Tab 20 Mg PO DAILY Nadolol 20 Mg Tab 20 Mg PO DAILY Albuterol inhaler when necessary . Current Medications Medications (Trade) Dose Ordered Sig/Gian Route Start Time Stop Time Status Last Admin (Glucophage) 500 mg BIDPC PO 10/27/16 09:00 11/05/16 08:52 (Corgard) 20 mg DAILY PO 10/27/16 09:00 11/05/16 08:52 (Protonix) 20 mg DAILY PO 10/27/16 09:00 11/05/16 08:52 (Colace) 100 mg BID PO 10/28/16 21:00 11/05/16 08:52 (Lactulose Liq) 30 ml DAILY PRN PO 10/28/16 18:15 10/29/16 10:42 Spironolactone 100 mg 100 mg QID PO 11/02/16 13:00 11/05/16 08:52 (Vancomycin Consult Pharmacy) 0 ml @ 0 mls/hr UNSCH OTHER 11/03/16 16:00 (Tylenol) 650 mg Q4H PRN PO 11/03/16 16:15 Ondansetron HCl 4 mg 4 mg Q6H PRN IV 11/03/16 16:15 (Vancomycin Inj/ NS 250 ml Inj) 250 ml @ 250 mls/hr Q12H IV 11/05/16 18:00 Miscellaneous Information SPECIFIC LAB TO BE DRAWN:VANCOMYCIN TROUGH DATE TO... ONCE ONCE .XX 11/07/16 05:45 11/07/16 05:46 Family History Both patient's mother and father are . His mother was a smoker and suffered from emphysema. His father from complications related to cirrhosis, alcohol-related. Substance Use Tobacco: No history of tobacco use Alcohol: Previous heavy EtOH consumption; patient quit drinking alcohol in 2016. Prescription med abuse: Patient denies Illicits: Patient denies . Psychosocial History Patient is single male who has no children. His brother is his next of kin and lives locally. The patient previously lived in [place], [place] in [place]. He moved to [place] in March, to be closer to family. 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 . Spiritual/Cultural Factors Restorationist anton . (Rashida Jean) Today's verbally stated goals: Patient's goals are aggressive up to the point of cardiopulmonary resuscitation. . Family/friends goals: No family/friends were present. . Ethical and Legal Issues Per [place] statutes, in the absence of written advanced directives healthcare proxy decision-making falls to the patient's brother -Doc Jackman. Patient is unmarried and has no children; he has only one sibling. He confirms he is would want his brother to act and the role of medical decision maker if he were unable to make his own decisions; they are in the process of completing written advanced directives per patient. . (Rashida Jean) Physical Exam Vital Signs Date Time Temp Pulse Resp B/P Pulse Ox O2 Delivery O2 Flow Rate FiO2 11/05/16 08:00 97.0 63 16 120/51 96 11/05/16 00:00 98.3 70 20 108/54 96 11/04/16 20:00 98.0 73 22 110/59 95 5/23/17 16:00 96.4 66 18 117/69 98 11/04/16 12:00 97.7 66 18 108/57 97 . 11/04/16 11/05/16 19:00 07:00 Intake Total 340 ml 720 ml Output Total 150 ml 850 ml Balance 190 ml -130 ml Intake Oral 340 ml 720 ml Drainage Total 150 ml 850 ml # Voids 3 2 # Bowel Movements 1 1 . Exam CONSTITUTIONAL/GENERAL: This is an adequately nourished patient, in no apparent distress. TUBES/LINES/DRAINS: PIV 1; colostomy bag/stoma bag SKIN: Ecchymoses on upper extremities. Skin temperature appropriate. HEAD: Atraumatic. Normocephalic. EYES: Pupils equal and round and reactive. Extraocular motions intact. No scleral icterus. No injection or drainage. Fundi not examined. ENT: Hearing grossly normal. Nose without bleeding or purulent drainage. NECK: Trachea midline. CARDIOVASCULAR: Regular rate and rhythm without murmurs, gallops, or rubs. No JVD. Peripheral pulses symmetric. RESPIRATORY/CHEST: Symmetric, unlabored respirations. Clear to auscultation. Breath sounds equal bilaterally. No wheezes, rales, or rhonchi. GASTROINTESTINAL: Abdomen is nondistended; Colostomy bag over umbilical hernia- collecting blood-tinged ascitic fluid. GENITOURINARY: Without palpable bladder distension. MUSCULOSKELETAL: Extremities without clubbing, cyanosis, or edema. Muscle atrophy in upper and lower extremities bilaterally; temporal wasting. LYMPHATICS: No palpable cervical or supraclavicular adenopathy. NEUROLOGICAL: Awake and alert.Cognitively sharp. Moves all extremities. PSYCHIATRIC: No obvious anxiety/depression. no apparent hallucinations or other psychotic thought process. . (Rashida Jean) Diagnostic Tests Laboratory Laboratory Tests Test 11/03/16 11/04/16 11/04/16 11/05/16 05:15 04:54 04:57 04:35 Sodium Level 128 MEQ/L 128 MEQ/L (136-145) (136-145) Potassium Level 4.7 MEQ/L 4.5 MEQ/L (3.5-5.1) (3.5-5.1) Chloride Level 95 MEQ/L 94 MEQ/L (98-107) (98-107) Carbon Dioxide Level 24.2 MEQ/L 24.9 MEQ/L (21.0-32.0) (21.0-32.0) Anion Gap 9 MEQ/L (5-15) 9 MEQ/L (5-15) Blood Urea Nitrogen 18 MG/DL (7-18) 20 MG/DL (7-18) Creatinine 0.74 MG/DL 0.83 MG/DL 0.74 MG/DL (0.60-1.30) (0.60-1.30) (0.60-1.30) Estimat Glomerular Filtration 108 ML/MIN 94 ML/MIN (>89) 108 ML/MIN Rate (>89) (>89) Random Glucose 88 MG/DL 92 MG/DL (74-106) (74-106) Calcium Level 10.1 MG/DL 9.6 MG/DL (8.5-10.1) (8.5-10.1) White Blood Count 4.9 TH/MM3 (4.0-11.0) Red Blood Count 3.52 MIL/MM3 (4.50-5.90) Hemoglobin 12.0 GM/DL (13.0-17.0) Hematocrit 33.2 % (39.0-51.0) Mean Corpuscular Volume 94.3 FL (80.0-100.0) Mean Corpuscular Hemoglobin 34.0 PG (27.0-34.0) Mean Corpuscular Hemoglobin 36.1 % Concent (32.0-36.0) Red Cell Distribution Width 14.6 % (11.6-17.2) Platelet Count 57 TH/MM3 (150-450) Mean Platelet Volume 9.2 FL (7.0-11.0) Neutrophils (%) (Auto) 67.3 % (16.0-70.0) Lymphocytes (%) (Auto) 11.1 % (9.0-44.0) Monocytes (%) (Auto) 16.8 % (0.0-8.0) Eosinophils (%) (Auto) 4.3 % (0.0-4.0) Basophils (%) (Auto) 0.5 % (0.0-2.0) Neutrophils # (Auto) 3.3 TH/MM3 (1.8-7.7) Lymphocytes # (Auto) 0.5 TH/MM3 (1.0-4.8) Monocytes # (Auto) 0.8 TH/MM3 (0-0.9) Eosinophils # (Auto) 0.2 TH/MM3 (0-0.4) Basophils # (Auto) 0.0 TH/MM3 (0-0.2) CBC Comment AUTO DIFF Differential Comment AUTO DIFF CONFIRMED Platelet Estimate LOW (NORMAL) Platelet Morphology Comment NORMAL (NORMAL) Magnesium Level 1.7 MG/DL (1.5-2.5) Vancomycin Level Trough 18.2 MCG/ML (5.0-10.0) . (Rashida Jean) Result Diagram: 11/04/16 0454 11/05/16 0435 Patient/Family Conference Present at Family Conference: Spoke with patient at bedside . Family Conference Location: Bedside Issues Discussed: * Palliative care role, purpose, approach * Additional medical, psychosocial, and spiritual history * Patients general health, functional status, and cognitive changes in the months leading up to the current hospitalization * Patient/family understanding of the current medical problems * Patient/family understanding of prognosis * Patients goals of care as best understood from advance directives and/or conversations and/or values * Current medical treatment options and benefits/burdens of those options * Likely scenarios comparing ongoing aggressive care with a transition to comfort measures only * Questions answered to the best of my ability * Palliative care contact information provided . (Rashida Jean) Assessment and Plan Disease Oriented Problem List: (1) Umbilical hernia (2) Hemochromatosis (3) Recurrent umbilical hernia (4) Chronic GERD (5) Ascites (6) Liver cirrhosis (7) Hepatocellular carcinoma Symptom Scale: (1) Pain (2) Anxiety Pertinent Non-Medical Issues Psychosocial: Patient is single male who has no children. His brother is his next of kin and lives locally. The patient previously lived in [facility]. He moved to [place] in March, to be closer to family. 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 Spiritual: Restorationist anton Legal: Per [place] statutes, in the absence of written advanced directives healthcare proxy decision-making falls to the patient's only brother, Doc Jackman. Patient states he is in the process of completing written advanced directives. Ethical issues impacting care: No known ethical issues impacting care . . Important Contacts Doc Jackman, brother: [phone] . Prognosis Patient is a 61-year-old male admitted with continuous drainage of ascitic fluid from this and the local hernia. He is a 3 month history of ascites requiring paracentesis on several occasions, most recently on 10/22/16 at which time >15L of fluid was removed. There is also a history of cirrhosis, likely secondary to long-standing hemochromatosis and EtOH abuse. He has known lesions in the right lobe of the liver concerning for HCC, but have not been biopsied at this point. Patient has a history of heavy alcohol consumption; he stopped drinking in 06/2016. Ascitic fluid culture positive sign MRSA. Child- Arteaga score of 10; class C cirrhosis. [facility] has agreed to accept this patient for treatment of HCC and possible evaluation for liver transplant, but not as a hospital to hospital transfer. Given patient's multiple comorbid infections along with ongoing ascitic drainage (+MRSA) in the upper umbilical hernia, this patient's overall prognosis is poor. . Code Status: No Code Plan * NO CODE-DNR/DNI * Decision-making: Patient currently demonstrating a good understanding of his medical conditions; able to weigh the benefits and burdens of medical treatment options. Per [place] statutes, in the absence of written advanced directives healthcare decision making would fall to the patient's only brother (Doc Jackman ). * Patient reports he is in the process of completing written advanced directives ; requested a copy when documents were completed. * Goals: Goals remain aggressive up to the point of cardiopulmonary resuscitation. * Discussed the process of cardiopulmonary resuscitation at length with the patient-including compressions, ACLS medications, cardioversion and intubation/ mechanical ventilation. The patient stated in the event that he experiences cardiopulmonary arrest, he does not want aggressive interventions but prefers to be allowed to peacefully and naturally. Patient states, " At that point , I think it should be put in God's hands." * Furniture Repairer consult placed * Of note, [facility] has agreed to accept the patient for treatment of hepatocellular carcinoma, and possible transplant evaluation if there is no vascular involvement. However patient was not cleared for hospital to hospital transfer, possible outpatient follow-up. * Symptom managementpain: Patient currently denies pain. Possible causes of pain include ascites, distended abdomen, impaired skin integrity, invasiveness lines etc. PRN acetaminophen is currently available every 4 hours as needed for pain or fever. * Palliative care contact information provided to patient. * Palliative care will continue to follow patient throughout his hospitalization to establish trust, assist with symptom management and clarification of medical treatment goals. (Rashida Jean) Thank you for the opportunity to participate in the care of Mr. Jackman. (Rashida Jean) Collaborating MD Comments . Chart reviewed. Case discussed with palliative care GOLF COURSE MANAGER. Above GOLF COURSE MANAGER note reviewed and I concur. . (Erick Mccormick MD) Rashida Jean November 05, 2016 10:53 Erick Mccormick MD November 11, 2016 16:38
[2016-11-05] MEDS ORDERED: SODIUM CHLORIDE 0.9% FLUSH 10 ML FLUSH IV FLUSH PRN (16:30)
--- NOTE | 2016-11-05 16:53 | RADRPT ---
EXAM DATE/TIME: 11/05/2016 16:24 [facility] COMPARISON: CHEST SINGLE AP, September 08, 2016, 13:49. INDICATIONS : Post PICC line placement. MEDICAL HISTORY : Hypertension. Diabetes mellitus type II. SURGICAL HISTORY : None. ENCOUNTER: Initial ACUITY: 1 day PAIN SCORE: 0/10 LOCATION: Bilateral chest FINDINGS: Right arm PICC line is present in good position with tip overlying the atriocaval junction. There is no evidence of pneumothorax or other complication. Lungs are symmetrically aerated and grossly clear. Cardiac contours are satisfactory for technique and projection. CONCLUSION: Satisfactory PICC line positioning Low Kruse MD on November 05, 2016 at 16:51 Board Certified Radiologist. This report was verified electronically.
[2016-11-05] MEDS: VANCOMYCIN 1,000 MG/NS 250 ML IV SCH ×2 (17:43)
[2016-11-05] MEDS ORDERED: VANC1000P IV (18:14)
--- NOTE | 2016-11-05 18:19 | HHI.FF ---
cc: Rojelio Elizabeth MD Infusion Therapy Location of Infusion Therapy: [facility] Infusion Therapy Order Patient Information Appointment Date: November 05, 2016 Patient Weight 65.9 kg Diagnosis: Diagnosis MRSA peritonitis Haemochromatosis Coded Allergies: *MDRO Multi-Drug Resistant Organism (Verified Adverse Reaction, Unknown, ) MRSA Peritoneal Fluid 11/01/16 Administer Medication Vancomycin 1 gram IV q 12 hours Start Treatment: November 05, 2016 Stop Treatment: Nov 18, 2016 Additional Information Venous access: PICC Line Additional Instructions [x] Peripheral flush and dressing changes per protocol [x] Implanted port and central apparatus lineman: * Implanted port: 10 ml Normal Saline followed by 5 ml Heparin 100 units/ml Heparin flush after each use and monthly to maintain. [] May leave port accessed during therapy. [] May leave peripheral site accessed for duration of therapy. [x] If patient has SOB or respiratory distress, check oxygen saturation. If less than 90% or clinical signs of respiratory distress, administer oxygen at 2 L/min. via nasal cannula and notify physician. [x] Anaphylaxis/Reaction orders: * Stop infusion. * Keep IV line open with saline flush. * Notify physician. * Monitor vital signs every 15 minutes until symptoms resolve. * Check Oxygen saturation; Oxygen at 2 L/min. via nasal cannula if less than 90% or clinical signs of respiratory distress. * Administer diphenhydramine (Benadryl) 25 mg IV STAT, (unless patient has received as pre-med). May repeat once, if necessary. * Solu-Cortef 250 mg IVP over 30-60 seconds, use 100 mg vials for each dissolution. * Epinephrine (1mg/1 ml) 0.3 mg subcutaneously or IVP now with any signs of respiratory distress. * Check with physician for new additional pre-med orders if patient is re- challenged or re-treated. [x] May remove PICC line when treatment complete, after confirming with Physician. [x] If the patient is admitted to the hospital, the ED, or transferred via [facility] , complete transfer form including medication reconciliation order sheet. Laboratory Tests Weekly Labs: CBC w/diff, Creatinine, LFT's (Hepatic function test), Vancomycin Trough (Target trough 15-20) Additional Information Please draw weekly labs, fax labs to number below and Call with abnormals, change in clinical condition or problems to: or covering ID physicians. ID Physician Follow up appt: Follow up with PCP Follow up with other MDs as planned. Counseling: Counseled about medication side effects Counseled about PICC line care and hand hygiene. Tatum Murphy MD November 05, 2016 18:19
[2016-11-05 20:00] VITALS: BP 110/59; PULSE 72; RESP 18; TEMP 97.9; O2SAT 94
[2016-11-06] VITALS: BP 106/54; PULSE 71; RESP 18; TEMP 97.9; O2SAT 94
[2016-11-06] MEDS: VANCOMYCIN 1,000 MG/NS 250 ML IV SCH ×2 (05:55)
[2016-11-06 08:00] VITALS: BP 111/58; PULSE 68; RESP 16; TEMP 97.1; O2SAT 94
[2016-11-06] MEDS: SODIUM CHLORIDE 0.9% FLUSH 10 ML FLUSH IV FLUSH SCH (08:27)
[2016-11-06] MEDS: PANTOPRAZOLE SOD 20 MG DELAYED RELEASE TAB PO SCH (08:28)
[2016-11-06] MEDS: NADOLOL 20 MG TAB PO SCH (08:28)
[2016-11-06] MEDS: SPIRONOLACTONE 100 MG TAB PO SCH ×4 (08:28→23:15)
[2016-11-06] MEDS: DOCUSATE SODIUM 100 MG CAP PO SCH ×2 (08:28→20:20)
[2016-11-06] MEDS: metFORMIN HCL 500 MG TAB PO SCH ×2 (08:28→18:36)
[2016-11-06 12:00] VITALS: BP 109/56; PULSE 73; RESP 16; TEMP 98.1; O2SAT 94
--- NOTE | 2016-11-06 12:40 | HHI.GIFU ---
Subjective Remarks Comfortable in bed denies any pain with minimal drainage through umbilical hernia Objective Vitals I&O Vital Signs Date Time Temp Pulse Resp B/P Pulse Ox O2 Delivery O2 Flow Rate FiO2 11/06/16 12:00 98.1 73 16 109/56 94 11/06/16 08:00 97.1 68 16 111/58 94 11/06/16 00:00 97.9 71 18 106/54 94 11/05/16 20:00 97.9 72 18 110/59 94 11/05/16 16:00 97.9 69 18 113/56 95 I/O 11/05/16 11/05/16 11/05/16 11/06/16 11/06/16 11/06/16 07:00 15:00 23:00 07:00 15:00 23:00 Intake Total 240 ml 240 ml 370 ml Output Total 450 ml 500 ml 300 ml 650 ml Balance -210 ml -500 ml -60 ml -280 ml Intake Oral 240 ml 240 ml 120 ml IV Total 250 ml Drainage Total 450 ml 500 ml 300 ml 650 ml # Voids 1 2 1 # Bowel Movements 0 0 0 Laboratory Date/Time Procedure Status Source Growth 11/01/16 16:33 Gram Stain - Final Complete Fluid Peritoneal Fluid 11/01/16 16:33 Body Fluid Culture - Final Complete S. Aureus Mrsa Imaging Last 48 hours Impressions Chest X-Ray 11/05/16 0000 Signed Impressions: Service Date/Time: Saturday, November 05, 2016 16:24 - CONCLUSION: Satisfactory PICC line positioning Low Kruse MD Physical Exam HEENT: Normocephalic; atraumatic; mild jaundice. CHEST: CTA CARDIAC: RRR ABDOMEN: Soft, nontender; bowel sounds are present in all four quadrants, collection bag attached to umbilicus draining minimal amount of red tinged fluid. EXTREMITIES: No clubbing, cyanosis, or edema. SKIN: Normal; no rash; mild jaundice. ANALYTICAL CONSULTANT: No focal deficits; alert and oriented times three. Assessment and Plan Plan ASSESSMENT - Liver Cirrhosis with Hemochromatosis and past ETOH use. He was diagnosed with hemochromatosis at age 34 and has been treated with multiple phlebotomies in the past. He continued to drink ETOH until July 102016. He now abstains from ETOH. He cannot tell me exactly when he was diagnosed with liver cirrhosis and states that he has "never been formally diagnosed," however, he does report that he was told at age 38 that he had scarring on his liver. Unfortunately, much of his workup was at another facility and I do not have records to this. Hepatitis panel negative, BELINDA negative. AMA < 20.0, ASMA positive 1:80, Ferritin 87, Iron Saturation 70.5, alpha 1 antitrypsin 111, Ceruloplasmin 18, AFP 9.4, CEA 27.9. - Liver mass, possible hepatocellular carcinoma. MRI (08/20/16)---> There are 2 very small hypervascular lesions within the dome of the liver. These are not seen on the dealyed imaging with EOVIST. THe hypervascular enhancement is somewhat concerning. They are too small to biopsy and their location would make biopsy extremely difficult. FU MR in 6 months to ensure stability is warranted. Malignancy is not definitely excluded. 3.4 x 3.3 cm area of decreased contrast enhancement along the right lobe of the liver inferiorly probably representing a regenerating nodule. Splenomegaly with ascites and cirrhosis consistent with portal hypertension. There is a history of hemochromatosis however, there is no significant signal dropout within the liver on vamsi T2 weighted axial imaging. This would suggest there is no significant iron deposition within the liver at this time. PET Scan (10/07/16)---> demonstrated a 4.1 x 4.0 mass along the inferior aspect right lobe with low uptake concerning for malignancy. AFP 9.4 CEA 27.9. Pt has not been approved for hospital to hospital transfer. Will continue current treatment and consider outpatient evaluation at time of discharge. - Recurrent Ascites. Pt has been getting paracentesis, but has not been medically optimized and has not been on diuretics at home. He has an umbilical hernia with significant ascitic leak due to erosion of his umbilical skin. He is being followed by [facility], but there are no current plans for surgical intervention secondary to the significant ascitic leak which would erode any attempted repair of the hernia and/or skin. Fluid Cx S. Aureus MRSA. On Vanco. Spironolactone. 825cc ascites drainage out today - Anemia. Mild stable EGD (05/2015)----> Jones's esophagus, gastritis, normal duodenum. Colonoscopy (03/30/12)----> diverticulosis in sigmoid, dense with fibrosis and diverticulosis in descending, moderate. Small nonbleeding internal hemorrhoids. - Umbilical hernia. Followed by [facility]. No surgical plans until he is medically optimized with diuretics for his ascites. - Thrombocytopenia. Plt 57,000. - Hyponatremia, Asthma, HTN PLAN - Low sodium diet - Cont. Spironolactone - Cont. Vanco with further plans as per the ID specialist -Okay for discharge from a GI standpoint -I had a lengthy discussion with the patient's brother in the room the patient with decompensating cirrhosis secondary to infected ascites and hepatocellular carcinoma which is bordering on being nonresectable I also relayed my discussion with the [facility] we are unable to proceed with hospital to hospital transfer to this point but the plan at this point in time would be to clear the infection and this could be done in an outpatient facility and hopefully we will be continuing with our referral to the [facility] for evaluation for liver transplant I did emphasize that the patient needs to stay off alcohol and that there is no need at this point for a liver biopsy to be done at this facility if it's warranted it can be done at the [facility] but for now the diagnosis of hepatocellular carcinoma is made with 90% confidence - Patient follow up with GI he will need CBC and a CMP prior to office visit in addition to the PT/INR Chandana Ball MD November 06, 2016 12:40
--- NOTE | 2016-11-06 15:09 | HHI.PR ---
Subjective Remarks No new complaints. Objective Vitals Vital Signs Date Time Temp Pulse Resp B/P Pulse Ox O2 Delivery O2 Flow Rate FiO2 11/06/16 12:00 98.1 73 16 109/56 94 11/06/16 08:00 97.1 68 16 111/58 94 11/06/16 00:00 97.9 71 18 106/54 94 11/05/16 20:00 97.9 72 18 110/59 94 11/05/16 16:00 97.9 69 18 113/56 95 11/05/16 11/05/16 11/06/16 15:00 23:00 07:00 Intake Total 240 ml 370 ml Output Total 500 ml 300 ml 650 ml Balance -500 ml -60 ml -280 ml Intake Oral 240 ml 120 ml IV Total 250 ml Drainage Total 500 ml 300 ml 650 ml # Voids 2 1 # Bowel Movements 0 0 Result Diagram: 11/04/16 0454 11/05/16 0435 Imaging Last Impressions Abdomen Ultrasound 10/29/16 0000 Signed Impressions: Service Date/Time: Saturday, October 29, 2016 14:36 - CONCLUSION: No significant ascites as described above. Aryan Macias MD FACR Objective Remarks General: NAD, AAOx3 Chest: CTA Cardiac: Regular Abd: +BS, soft, collection bag attached to umbilicus draining red tinged fluid. Ext: No edema A/P Problem List: (1) Liver cirrhosis Status: Chronic Plan: - Pt is a 61 y/o male with hepatic cirrhosis, esophageal varices, hx of regular alcohol use (none since 06/2016) and hereditary hemochromatosis. - He presented to [facility] [place] due to bloody drainage from his umbilical hernia. - Pt has known liver cirrhosis and more recently has required frequent large volume paracentesis. - His last therapeutic paracentesis was on 10/22/16 with removal of 15,300cc of blood tinged ascetic fluid. - Pt was not on any diuretic therapy prior to admission. - As an outpt pt was seen by Dr. Ventura (Oncology) in September 2016 for followup for hemochromatosis and concern for hepatocellular carcinoma with report of MRI imaging abnormalities suggesting enlarging hepatic lesions from 08/20/2016. His AFP 9.5 on 09/22/2016. Because of significant risks associated with liver biopsy, PET/CT scan was ordered in lieu, which was completed on 10/07/2016 and per outpt records this demonstrated a 4.1 x 4.0 cm mass along the inferior aspect right lobe with low grade uptake concerning for malignancy. - Spoke with IR, Dr. Macias, who reports that there is no ascites to drain from his abdomen as he is actively draining from the umbilicus - Pt was getting IV Albumin Q8H until 11/02. - Cont. Aldactone. We have been titrating up slowly (currently on Aldactone 100mg QID) to monitor for RAJENDRA and hypotension. His BP is tolerating so far and kidney function stable. - Cont. to monitor electrolytes and renal function - His ascitic drainage slowed today to 700cc so far - He had a fever over the weekend and ascitic fluid grew out MRSA. - Pt was given po Levaquin from 10/31-11/03 and a dose of Vancomycin IV on 11/02. MRSA resistant to Levaquin so this was stopped and Abx changed to Vancomycin IV with pharmacy dosing on 11/03. - Appreciate ID consultation. - [facility] has refused to evaluate pt until December when 6month is up from last EtOH drink - [facility] has agreed to accept patient for treatment of HCC +/- transplant evaluation if there is no vascular involvement but pt was not cleared for hospital to hospital transfer. Possible evaluation as outpatient. - Cytology (10/29) neg. Repeat cytology (11/03/16) --> numerous bacteria, no malignancy - Monitor labs and clinical status closely. - Case d/w ID, Dr. Murphy, (11/05/16). Pt will require 2 weeks of IV Vancomycin treatment - will d/c to SNF with PICC to complete course of IV Vancomycin. - decompensating cirrhosis d/t infected ascites and likely hepatocellular carcinoma - refer to [facility] for evaluation for liver transfplant - NO alcohol - anticipate d/c to SNF 11/07 (2) Recurrent umbilical hernia Status: Chronic Plan: - See above. (3) Ascites Status: Chronic Plan: - See above. - Likely assoc with multifactorial cirrhosis, related to hemochromatosis and hx of alcohol use. - No signs of infectious process. (4) Hemochromatosis Status: Chronic Plan: - s/p multiple phlebotomies. - Outpt imaging does not indicate iron deposition in liver at this point. - Most recent labs on 09/22/16 with Ferritin 71, Serum iron 122, TIBC 175, %sat 69.7 (5) Chronic GERD Status: Chronic Plan: - Continue PPI (6) Hyperglycemia Status: Chronic Plan: - He has type 2 diabetes managed with metformin, without any history of nephropathy, neuropathy or retinopathy. - Hgb A1c is 5.4%. - Continue metformin for now. - DM diet. Problem Qualifiers (1) Ascites: Qualified Code: R18.8 - Other ascites Rivas Hightower DO November 06, 2016 15:09
[2016-11-06 16:00] VITALS: BP_SYST 103; BP_SYST 119; BP_DIAS 56; BP_DIAS 59; PULSE 73; RESP 16; TEMP 98; O2SAT 96
--- NOTE | 2016-11-06 16:08 | HHI.HCPN ---
Reason for visit a. To assist with evaluation and management of symptoms including: pain, anxiety, debility b. To assist medical decision maker(s) with: better understanding of current medical conditions; weighing benefits/burdens of medical treatment options; making medical treatment decisions. . (Rashida Jean) Subjective/Interval History . Mr. Jackman is a 61 year old male admitted to [facility] on 10/26/16 with decompensating cirrhosis secondary to infected ascites (+MRSA) and hepatocellular carcinoma which is on the verge of being nonresectable. [place] has agreed to accept the patient for treatment of hepatocellular carcinoma, and possible transplant evaluation if there is no vascular involvement. However patient was not cleared for hospital to hospital transfer, possible outpatient follow-up. The patient has not yet had a liver biopsy. Per Dr. Ball ( gastroenterology) a liver biopsy can be done at the [facility] if necessary; he states at this time the diagnosis of hepatocellular carcinoma can be made with 90% confidence. Afebrile; hemodynamically stable. No recent lab work available. Follow-up chest x-ray on 11/05/16 showing right arm PICC line in good position, no evidence of pneumothorax or other complications, lungs symmetrically aerated and grossly clear, cardiac contours are satisfactory for technique and projection. Follow-up visit for symptom management and clarification of medical treatment goals. Patient has no complaints at this time. He denies shortness of breath or pain, having minimal drainage from umbilical hernia. A PICC line was placed yesterday; MRSA positive ascitic fluid will require IV vancomycin 12 days. Case management is working towards placement at a assisted facility, [facility]. Family/friend interactions . Met with patient at bedside, verbalizing that he was "shocked" with his new diagnosis of hepatocellular cellular cancer. We discussed current plan. Case management is working towards placement at [facility]. Patient will require 12 days of IV vancomycin to treat infected ascitic fluid, + MRSA. A PICC line was placed chest tube 11/05/2016. He is currently in the process of completing written advanced directives with his food service cashier. The patient did not wish to complete a community DNR, stating he did not think that was necessary at this time. He expresses aggressive goals. We discussed "5 wishes"; information was left at the patient's bedside to review. . (Rashida Jean) Objective Vital Signs Date Time Temp Pulse Resp B/P Pulse Ox O2 Delivery O2 Flow Rate FiO2 11/06/16 12:00 98.1 73 16 109/56 94 11/06/16 08:00 97.1 68 16 111/58 94 11/06/16 00:00 97.9 71 18 106/54 94 11/05/16 20:00 97.9 72 18 110/59 94 11/05/16 16:00 97.9 69 18 113/56 95 Intake & Output 11/06/16 11/06/16 07:00 19:00 Intake Total 610 ml 600 ml Output Total 950 ml Balance -340 ml 600 ml Intake Oral 360 ml 600 ml IV Total 250 ml Drainage Total 950 ml # Voids 3 # Bowel Movements 0 . Physical Exam CONSTITUTIONAL/GENERAL: This is a frail, elderly female patient, in no apparent distress. TUBES/LINES/DRAINS: PICC line; colostomy bag/stoma bag SKIN: Ecchymoses on upper extremities. Skin temperature appropriate. HEAD: Atraumatic. Normocephalic. EYES: Pupils equal and round and reactive. Extraocular motions intact. No scleral icterus. No injection or drainage. Fundi not examined. ENT: Hearing grossly normal. Nose without bleeding or purulent drainage. NECK: Trachea midline. CARDIOVASCULAR: Regular rate and rhythm without murmurs, gallops, or rubs. No JVD. Peripheral pulses symmetric. RESPIRATORY/CHEST: Symmetric, unlabored respirations. Clear to auscultation. Breath sounds equal bilaterally. No wheezes, rales, or rhonchi. GASTROINTESTINAL: Abdomen is nondistended; Colostomy bag over umbilical hernia- collecting red - tinged fluid. GENITOURINARY: Without palpable bladder distension. MUSCULOSKELETAL: Extremities without clubbing, cyanosis, or edema. Muscle atrophy in upper and lower extremities bilaterally; temporal wasting. LYMPHATICS: No palpable cervical or supraclavicular adenopathy. NEUROLOGICAL: Awake and alert.Cognitively sharp. Moves all extremities. PSYCHIATRIC: No obvious anxiety/depression. no apparent hallucinations or other psychotic thought process. . (Rashida Jean) Diagnostic Tests Laboratory Laboratory Tests Test 11/04/16 11/04/16 11/05/16 04:54 04:57 04:35 White Blood Count 4.9 TH/MM3 (4.0-11.0) Red Blood Count 3.52 MIL/MM3 (4.50-5.90) Hemoglobin 12.0 GM/DL (13.0-17.0) Hematocrit 33.2 % (39.0-51.0) Mean Corpuscular Volume 94.3 FL (80.0-100.0) Mean Corpuscular Hemoglobin 34.0 PG (27.0-34.0) Mean Corpuscular Hemoglobin 36.1 % Concent (32.0-36.0) Red Cell Distribution Width 14.6 % (11.6-17.2) Platelet Count 57 TH/MM3 (150-450) Mean Platelet Volume 9.2 FL (7.0-11.0) Neutrophils (%) (Auto) 67.3 % (16.0-70.0) Lymphocytes (%) (Auto) 11.1 % (9.0-44.0) Monocytes (%) (Auto) 16.8 % (0.0-8.0) Eosinophils (%) (Auto) 4.3 % (0.0-4.0) Basophils (%) (Auto) 0.5 % (0.0-2.0) Neutrophils # (Auto) 3.3 TH/MM3 (1.8-7.7) Lymphocytes # (Auto) 0.5 TH/MM3 (1.0-4.8) Monocytes # (Auto) 0.8 TH/MM3 (0-0.9) Eosinophils # (Auto) 0.2 TH/MM3 (0-0.4) Basophils # (Auto) 0.0 TH/MM3 (0-0.2) CBC Comment AUTO DIFF Differential Comment AUTO DIFF CONFIRMED Platelet Estimate LOW (NORMAL) Platelet Morphology Comment NORMAL (NORMAL) Sodium Level 128 MEQ/L (136-145) Potassium Level 4.5 MEQ/L (3.5-5.1) Chloride Level 94 MEQ/L (98-107) Carbon Dioxide Level 24.9 MEQ/L (21.0-32.0) Anion Gap 9 MEQ/L (5-15) Blood Urea Nitrogen 20 MG/DL (7-18) Creatinine 0.83 MG/DL 0.74 MG/DL (0.60-1.30) (0.60-1.30) Estimat Glomerular Filtration 94 ML/MIN (>89) 108 ML/MIN Rate (>89) Random Glucose 92 MG/DL (74-106) Calcium Level 9.6 MG/DL (8.5-10.1) Magnesium Level 1.7 MG/DL (1.5-2.5) Vancomycin Level Trough 18.2 MCG/ML (5.0-10.0) . (Rashida Jean) Result Diagram: 11/04/16 0454 11/05/16 0435 Imaging Last 72 hours Impressions Chest X-Ray 11/05/16 0000 Signed Impressions: Service Date/Time: Saturday, November 05, 2016 16:24 - CONCLUSION: Satisfactory PICC line positioning Low Kruse MD . Procedures 11/06/16: PICC line placement (Rashida Jean) Assessment and Plan Disease Oriented Problem List: (1) Umbilical hernia (2) Hemochromatosis (3) Recurrent umbilical hernia (4) Chronic GERD (5) Ascites (6) Liver cirrhosis (7) Hepatocellular carcinoma Symptom Scale: (1) Pain (2) Anxiety (3) Debility Pertinent Non-Medical Issues Psychosocial: Patient is single male who has no children. His brother is his next of kin and lives locally. The patient previously lived in [place], [place] in [place]. He moved to [place] in March, to be closer to family. 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 Spiritual: Sikh anton Legal: Per [place] statutes, in the absence of written advanced directives healthcare proxy decision-making falls to the patient's only brother, Doc Jackman. Patient states he is in the process of completing written advanced directives. Ethical issues impacting care: No known ethical issues impacting care . . Important Contacts Doc Jackman, brother: [phone] . Prognosis Patient is a 61-year-old male admitted with continuous drainage of ascitic fluid from this and the local hernia. He is a 3 month history of ascites requiring paracentesis on several occasions, most recently on 10/22/16 at which time >15L of fluid was removed. There is also a history of cirrhosis, likely secondary to long-standing hemochromatosis and EtOH abuse. He has known lesions in the right lobe of the liver concerning for HCC, but have not been biopsied at this point. Patient has a history of heavy alcohol consumption; he stopped drinking in 06/2016. Ascitic fluid culture positive sign MRSA. Child- Arteaga score of 10; class C cirrhosis. [facility] has agreed to accept this patient for treatment of HCC and possible evaluation for liver transplant, but not as a hospital to hospital transfer. Given patient's multiple comorbid infections along with ongoing ascitic drainage (+MRSA) in the upper umbilical hernia, this patient's overall prognosis is poor. . Code Status: No Code Plan * NO CODE-DNR/DNI * Decision-making: Patient currently demonstrating a good understanding of his medical conditions; able to weigh the benefits and burdens of medical treatment options. Per [place] statutes, in the absence of written advanced directives healthcare decision making would fall to the patient's only brother (Doc Jackman ). * Patient states he is working with his food service cashier to complete his written advanced directives. He did not wish to complete a community DNR. We discussed "5 wishes "; information was left at the patient's bedside to review. * Goals: Goals remain aggressive. * [place] has agreed to accept the patient for treatment of hepatocellular carcinoma, and possible transplant evaluation if there is no vascular involvement. However patient was not cleared for hospital to hospital transfer , possible outpatient follow-up. The patient has not yet had a liver biopsy. Per Dr. Ball (gastroenterology) a liver biopsy can be done at the [facility] if necessary; he states at this time the diagnosis of hepatocellular carcinoma can be made with 90% confidence. * Symptom managementpain: Patient currently denies pain. Possible causes of pain include ascites, distended abdomen, impaired skin integrity, invasiveness lines etc. PRN acetaminophen is currently available every 4 hours as needed for pain or fever. No recommendations at this time. * A PICC line was placed yesterday; MRSA positive ascitic fluid will require IV vancomycin 12 days. Case management is working towards placement at a assisted facility, [facility]. * Discussed with Dr. Hightower. * Palliative care will continue to follow patient throughout his hospitalization to establish trust, assist with symptom management and clarification of medical treatment goals. . (Rashida Jean) Attestation To help prompt me to consider important information that might be impacting today's encounter and assessment, information from prior notes written by myself or my colleagues may have been "brought forward" into today's note. My signature on this note, however, is an attestation that I personally performed the exam, history, and/or decision-making noted today, and, unless otherwise indicated, the interactions with patient, family, and staff as well as the review of records all occurred today. I also attest that the listed assessment and stated plan reflect my best clinical judgment today based on the combination of historical information, prior notes, and today's exam/ interactions. When time spent is documented, it refers only to time spent today by the signer, or if indicated, combined time spent today by collaborating physician/nurse practitioner. . (Rashida Jean) Collaborating MD Comments . Chart reviewed. Case discussed with palliative care STOKER INSTALLER. Above STOKER INSTALLER note reviewed and I concur. . (Erick Mccormick MD) Rashida Jean November 06, 2016 16:08 Erick Mccormick MD November 11, 2016 16:38
[2016-11-06] MEDS: VANCOMYCIN INJ 1,250 MG in SODIUM CHLOR 0.9% 250 ML INJ 250 ML IV SCH (18:36)
[2016-11-06 20:00] VITALS: BP 114/54; PULSE 70; RESP 18; TEMP 98.1; O2SAT 95
[2016-11-07] VITALS: BP 102/57; PULSE 77; RESP 18; TEMP 98.4; O2SAT 95
[2016-11-07] MEDS: VANCOMYCIN INJ 1,250 MG in SODIUM CHLOR 0.9% 250 ML INJ 250 ML IV SCH (06:43)
[2016-11-07 08:00] VITALS: BP 113/55; PULSE 72; RESP 17; TEMP 96.6; O2SAT 96
[2016-11-07] MEDS: SODIUM CHLORIDE 0.9% FLUSH 10 ML FLUSH IV FLUSH SCH (09:41)
[2016-11-07] MEDS: DOCUSATE SODIUM 100 MG CAP PO SCH (09:41)
[2016-11-07] MEDS: metFORMIN HCL 500 MG TAB PO SCH (09:42)
[2016-11-07] MEDS: SPIRONOLACTONE 100 MG TAB PO SCH ×2 (09:42→13:39)
[2016-11-07] MEDS: PANTOPRAZOLE SOD 20 MG DELAYED RELEASE TAB PO SCH (09:42)
[2016-11-07] MEDS: NADOLOL 20 MG TAB PO SCH (09:42)
[2016-11-07 12:00] VITALS: BP 112/59; PULSE 70; RESP 11; TEMP 96.5; O2SAT 97
--- NOTE | 2016-11-07 13:29 | HHI.DS ---
Discharge Summary Admission Date October 26, 2016 at 21:49 Discharge Date: November 07, 2016 Admitting Diagnosis SPONTANEOUS DRAINAGE OF ASCITES FROM UMBILICAL HERNIA (1) Hepatocellular carcinoma Diagnosis: Principal (2) Liver cirrhosis Diagnosis: Principal (3) Ascites Diagnosis: Principal (4) Recurrent umbilical hernia Diagnosis: Principal (5) Hemochromatosis Diagnosis: Secondary (6) Chronic GERD Diagnosis: Secondary (7) Hyperglycemia Diagnosis: Secondary Consultants Dr. Chandana Ball, Gastroenterology Dr. Murphy, Infectious Disease Brief History This 61-year-old male with hemochromatosis is complaining of spontaneous drainage of fluid from his umbilical hernia which started a few hours prior to arrival. This gentleman has a history of ascites for the last 3 months. He says that he was diagnosed with hemochromatosis many years ago and underwent phlebotomy for approximately one year. He was a social drinker, but reportedly he has not drank alcohol since June 2016. He has been getting periodic paracentesis done over the last month. Today he noted that there was some drainage from the area of his umbilical hernia. He has had 2 umbilical hernia repairs before in [place]. He has not had any fever or chills. There is no history of trauma. She reports she overall feels fine but is concerned that he continues to have blood-tinged serous discharge from his umbilicus. General surgery has been consult. Outpt MRI, CT, oncology and GI notes reviewed. Pt has some nodular masses in liver concerning for HCC, but nothing conclusive thus far. CBC/BMP: 11/04/16 0454 11/05/16 0435 Significant Findings Laboratory Tests Test 11/05/16 04:35 Vancomycin Level Trough 18.2 MCG/ML (5.0-10.0) PE at Discharge General: NAD, AAOx3 Chest: CTA Cardiac: Regular Abd: +BS, soft, collection bag attached to umbilicus draining red tinged fluid. Ext: No edema Hospital Course (1) Liver cirrhosis Status: Chronic Plan: - Pt is a 61 y/o male with hepatic cirrhosis, esophageal varices, hx of regular alcohol use (none since 06/2016) and hereditary hemochromatosis. - He presented to [facility] [place] due to bloody drainage from his umbilical hernia. - Pt has known liver cirrhosis and more recently has required frequent large volume paracentesis. - His last therapeutic paracentesis was on 10/22/16 with removal of 15,300cc of blood tinged ascetic fluid. - Pt was not on any diuretic therapy prior to admission. - As an outpt pt was seen by Dr. Ventura (Oncology) in September 2016 for followup for hemochromatosis and concern for hepatocellular carcinoma with report of MRI imaging abnormalities suggesting enlarging hepatic lesions from 08/20/2016. His AFP 9.5 on 09/22/2016. Because of significant risks associated with liver biopsy, PET/CT scan was ordered in lieu, which was completed on 10/07/2016 and per outpt records this demonstrated a 4.1 x 4.0 cm mass along the inferior aspect right lobe with low grade uptake concerning for malignancy. - Spoke with IR, Dr. Macias, who reports that there is no ascites to drain from his abdomen as he is actively draining from the umbilicus - Pt was getting IV Albumin Q8H until 11/02. - Cont. Aldactone. We have been titrating up slowly (currently on Aldactone 100mg QID) to monitor for RAJENDRA and hypotension. His BP is tolerating so far and kidney function stable. - Cont. to monitor electrolytes and renal function - His ascitic drainage slowed - He had a fever over the weekend and ascitic fluid grew out MRSA. - Pt was given po Levaquin from 10/31-11/03 and a dose of Vancomycin IV on 11/02. MRSA resistant to Levaquin so this was stopped and Abx changed to Vancomycin IV with pharmacy dosing on 11/03. - Appreciate ID consultation. - [facility] has refused to evaluate pt until December when 6month is up from last EtOH drink - [facility] has agreed to accept patient for treatment of HCC +/- transplant evaluation if there is no vascular involvement but pt was NOT cleared for hospital to hospital transfer. Possible evaluation as outpatient. - Cytology (10/29) neg. Repeat cytology (11/03/16) --> numerous bacteria, no malignancy - Case d/w ID, Dr. Murphy, (11/05/16). Pt will require 2 weeks of IV Vancomycin treatment - will d/c to SNF with PICC to complete course of IV Vancomycin. - decompensating cirrhosis d/t infected ascites and likely hepatocellular carcinoma - refer to [facility] for evaluation for liver transfplant - NO alcohol - discharge to SNF - Case d/w [facility] Case Mgmt to assist with referal to [facility] - see discharge orders (2) Recurrent umbilical hernia Status: Chronic Plan: - See above. (3) Ascites Status: Chronic Plan: - See above. - Likely assoc with multifactorial cirrhosis, related to hemochromatosis and hx of alcohol use. - No signs of infectious process. (4) Hemochromatosis Status: Chronic Plan: - s/p multiple phlebotomies. - Outpt imaging does not indicate iron deposition in liver at this point. - Most recent labs on 09/22/16 with Ferritin 71, Serum iron 122, TIBC 175, %sat 69.7 (5) Chronic GERD Status: Chronic Plan: - Continue PPI (6) Hyperglycemia Status: Chronic Plan: - He has type 2 diabetes managed with metformin, without any history of nephropathy, neuropathy or retinopathy. - Hgb A1c is 5.4%. - Continue metformin for now. - DM diet. Pt Condition on Discharge: Stable Discharge Disposition: Discharge to SNF Discharge Instructions DIET: Follow Instructions for: Diabetic Diet Activities you can perform: Weight Bearing as Jerica Follow up Referrals: Gastroenterology - 3 Weeks with Chandana Ball MD SNF/[facility]/ with [facility]/ with [facility] New Medications: Epinephrine Inj (Epinephrine Inj) 1 Mg/Ml Inj 0.3 MG IV PUSH ONCE PRN ALLERGIC REACTION #1 VIAL Epinephrine Inj (Epinephrine Inj) 1 Mg/Ml Inj 0.3 MG SQ ONCE Give with any signs of respiratory distress. PRN ALLERGIC REACTION #1 VIAL Hydrocortisone Inj (Solu-Cortef Inj) 250 Mg Inj 250 MG IV PUSH ONCE Give over 30-60 seconds. PRN ALLERGIC REACTION #1 Ref 0 VIAL Vancomycin Inj (Vancomycin Inj) 1,000 Mg Inj 1000 MG IV Q12HR Infection Days 12 Ref 0 BAG Continued Medications: Metformin (Metformin) 500 Mg Tab 500 MG PO BIDPC With meals Blood Sugar Management #60 Ref 0 TAB Nadolol (Nadolol) 20 Mg Tab 20 MG PO DAILY #30 Ref 0 TAB Omeprazole (Omeprazole) 20 Mg Tab 20 MG PO DAILY #30 Ref 0 TAB Rivas Hightower DO November 07, 2016 13:29
--- NOTE | 2016-11-07 13:36 | HHI.DCPOC ---
Discharge Care Plan Diagnosis: (1) Hepatocellular carcinoma (2) Liver cirrhosis (3) Ascites Goals to Promote Your Health * To prevent worsening of your condition and complications * To maintain your health at the optimal level Directions to Meet Your Goals Take your medications as prescribed Follow your dietary instruction Follow activity as directed Keep your appointments as scheduled Take your immunizations and boosters as scheduled If your symptoms worsen call your PCP, if no PCP go to Urgent Care Center or Emergency Room Smoking is Dangerous to Your Health. Avoid second hand smoke Call the 24-hour hour crisis hotline for domestic abuse at Rivas Hightower DO November 07, 2016 13:36
[2016-11-07] MEDS ORDERED: ALDA100T PO (13:50)
[2016-11-07 16:00] VITALS: BP 106/59; PULSE 74; RESP 16; TEMP 95.9; O2SAT 95
[2016-11-08] MEDS ORDERED: PHARMACY ORDERED LAB ONE (05:45)
== END 2016-11-07 17:12 | DRG 432 ==
LOC: PHED 20:59 → PHEDA 21:47 → INTOOBSV 21:49 → OBSVTOIN 21:49 → PHEDA 21:49 → UNDOADMOB 21:49 → PH3B 23:41 → PHEDA 23:41 → PH3B 10-27 23:58 → N07A 10-27 23:58
PROVIDERS: ADMIT Hospitalist; ATTEND Hospitalist
DX: K74.69 Other cirrhosis of liver (principal); K65.2 Spontaneous bacterial peritonitis; K70.31 Alcoholic cirrhosis of liver with ascites; R18.8 Other ascites; K76.6 Portal hypertension; C22.0 Liver cell carcinoma; E11.65 Type 2 diabetes mellitus with hyperglycemia; I85.10 Secondary esophageal varices without bleeding; E87.1 Hypo-osmolality and hyponatremia; D69.59 Other secondary thrombocytopenia; I10 Essential (primary) hypertension; B95.62 Methicillin resistant Staphylococcus aureus infection as the cause of diseases classified elsewhere; K21.9 Gastro-esophageal reflux disease without esophagitis; J45.909 Unspecified asthma, uncomplicated; K42.9 Umbilical hernia without obstruction or gangrene; E83.110 Hereditary hemochromatosis; Z79.84 Long term (current) use of oral hypoglycemic drugs; F10.21 Alcohol dependence, in remission; F41.9 Anxiety disorder, unspecified
CPT/HCPCS: 36569; 71010; 76705; 76937; 80048; 80053; 80074; 80076; 80202; 82042; 82103; 82105; 82378; 82390; 82565; 82728; 82945; 82948; 83036; 83520; 83540; 83550; 83615; 83735; 85025; 85610; 85730; 86038; 86256; 86403; 87040; 87070; 87147; 87186; 87205; 89051; 99284; J1642; J1956; J3370; J7030; J7040; J7050; P9047

== ENCOUNTER 2016-11-12 16:49 | Emergency (ER) | payer OTHER ==
[~2016-11-12 16:49] MED LIST changes: +ALDA100T PO; +VANC1000P IV
[2016-11-12 16:56] VITALS: BP 121/67; PULSE 68; RESP 16; TEMP 98.1; O2SAT 100
--- NOTE | 2016-11-12 18:21 | PD ---
HPI Chief Complaint: Altered Mental Status Time Seen by Provider: 18:13 Travel History International Travel<30 days: No Contact w/Intl Traveler<30days: No History of Present Illness HPI 61-year-old male with a history of alcoholic cirrhosis, ascites requiring frequent large-volume paracentesis, possible hepatocellular carcinoma, hemachromatosis is brought to the emergency department from [facility] for evaluation of altered mental status. Per the documentation from [facility] the patient's abdomen has become more distended and this morning he was alert and oriented 3 and is now altered therefore patient was sent to the emergency department. The patient states that he feels confused and slightly lightheaded. The patient is awake, alert and oriented to person and place but not time or situation. He denies any chest pain, shortness of breath , abdominal pain, nausea, vomiting, diarrhea, numbness or tingling, weakness, dizziness, gait instability. No other complaints. PFSH Past Medical History Asthma: Yes Cancer: No Cardiovascular Problems: Yes High Cholesterol: No Congestive Heart Failure: No Diabetes: Yes Diminished Hearing: No Endocrine: Yes Gastrointestinal Disorders: Yes (HEMACHROMATOSIS/LIVER FAILURE) GERD: Yes Genitourinary: No Hypertension: Yes Musculoskeletal: No Neurologic: No Psychiatric: No Past Surgical History Abdominal Surgery: Yes (HERNIA REPAIR X2) Other Surgery: Yes (umbilical hernia repair 2016) Social History Alcohol Use: No (FORMER) Tobacco Use: No Substance Use: No Allergies-Medications (Allergen,Severity, Reaction): Coded Allergies: *MDRO Multi-Drug Resistant Organism (Verified Adverse Reaction, Unknown, ) MRSA Peritoneal Fluid 11/01/16 Reported Meds & Prescriptions Reported Meds & Active Scripts Active Lactulose Liq (Lactulose) 10 Gm/15 Ml Soln 30 Ml PO Q8HR 10 Days Aldactone (Spironolactone) 100 Mg Tab 100 Mg PO QID 30 Days Reported Metformin (Metformin HCl) 500 Mg Tab 500 Mg PO BIDPC With meals Omeprazole 20 Mg Tab 20 Mg PO DAILY Nadolol 20 Mg Tab 20 Mg PO DAILY Review of Systems Except as stated in HPI: all other systems reviewed are Neg Physical Exam Narrative GENERAL: Well-nourished and well-developed pleasantly confused male patient in no acute distress. SKIN: Warm and dry. HEAD: Normocephalic and atraumatic. EYES: No injection, drainage, or hyphema noted. PERRLA. EOMI. ENT: No nasal drainage noted. Oropharynx is clear. NECK: Supple and the trachea is midline. CARDIOVASCULAR: Regular rate and rhythm. RESPIRATORY: Breath sounds are equal bilaterally with no accessory muscle use, wheezing, rhonchi, or crackles. GASTROINTESTINAL: Abdomen is distended but soft. No tenderness to palpation. No rebound tenderness or guarding. MUSCULOSKELETAL: No obvious deformities, swelling, cyanosis, or ecchymosis is present throughout the upper and lower extremities. Patient has full range of motion without any signs of neurovascular compromise. Strength 5/5 upper and lower extremities and equal bilaterally. NEUROLOGICAL: Awake, alert, and oriented. Normal speech and gait. Cranial nerves are grossly intact. Data Data Last Documented VS Vital Signs Date Time Temp Pulse Resp B/P Pulse Ox O2 Delivery O2 Flow Rate FiO2 11/12/16 19:59 65 17 149/68 98 Room Air 11/12/16 16:56 98.1 Orders Ammonia (11/12/16 18:08) Complete Blood Count With Diff (11/12/16 18:08) Comprehensive Metabolic Panel (11/12/16 18:08) Prothrombin Time / Inr (Pt) (11/12/16 18:08) Act Partial Throm Time (Ptt) (11/12/16 18:08) Urinalysis - C+S If Indicated (11/12/16 18:08) Lactic Acid Sepsis Protocol (11/12/16 18:08) Lactulose Liq (Lactulose Liq) (11/12/16 20:15) Sodium Chlorid 0.9% 500 Ml Inj (Ns 500 M (11/12/16 20:15) Labs Laboratory Tests Test 11/12/16 18:20 White Blood Count 5.6 TH/MM3 Red Blood Count 3.86 MIL/MM3 Hemoglobin 12.7 GM/DL Hematocrit 36.9 % Mean Corpuscular Volume 95.6 FL Mean Corpuscular Hemoglobin 33.0 PG Mean Corpuscular Hemoglobin 34.6 % Concent Red Cell Distribution Width 15.5 % Platelet Count 71 TH/MM3 Mean Platelet Volume 9.8 FL Neutrophils (%) (Auto) 64.4 % Lymphocytes (%) (Auto) 10.0 % Monocytes (%) (Auto) 19.7 % Eosinophils (%) (Auto) 5.3 % Basophils (%) (Auto) 0.6 % Neutrophils # (Auto) 3.6 TH/MM3 Lymphocytes # (Auto) 0.6 TH/MM3 Monocytes # (Auto) 1.1 TH/MM3 Eosinophils # (Auto) 0.3 TH/MM3 Basophils # (Auto) 0.0 TH/MM3 CBC Comment AUTO DIFF Differential Total Cells 100 Counted Neutrophils % (Manual) 69 % Band Neutrophils % 9 % Lymphocytes % 6 % Monocytes % 14 % Eosinophils % 1 % Basophils % 1 % Neutrophils # (Manual) 4.4 TH/MM3 Differential Comment FINAL DIFF MANUAL Platelet Estimate LOW Platelet Morphology Comment NORMAL Prothrombin Time 15.0 SEC Prothromb Time International 1.3 RATIO Ratio Activated Partial 34.6 SEC Thromboplast Time Sodium Level 130 MEQ/L Potassium Level 4.9 MEQ/L Chloride Level 97 MEQ/L Carbon Dioxide Level 26.3 MEQ/L Anion Gap 7 MEQ/L Blood Urea Nitrogen 17 MG/DL Creatinine 0.99 MG/DL Estimat Glomerular Filtration 77 ML/MIN Rate Random Glucose 119 MG/DL Lactic Acid Level 3.8 mmol/L Calcium Level 9.5 MG/DL Total Bilirubin 3.4 MG/DL Aspartate Amino Transf 65 U/L (AST/SGOT) Alanine Aminotransferase 42 U/L (ALT/SGPT) Alkaline Phosphatase 111 U/L Ammonia 101 MCMOL/L Total Protein 7.3 GM/DL Albumin 3.4 GM/DL [facility] Medical Decision Making Medical Screen Exam Complete: Yes Emergency Medical Condition: Yes Differential Diagnosis Hepatic encephalopathy versus electrolyte abnormality versus dehydration versus UTI versus intracranial hemorrhage versus other Narrative Course 61-year-old male is brought to the emergency department from his snf facility for evaluation of altered mental status and abdominal distention. Patient is afebrile, vital signs are stable. The patient is pleasantly confused, he was noted to be alert and oriented 3 this morning by snf staff. I reviewed the EMR which shows that the patient was recently discharged from our hospital 11/07/16. He was admitted for spontaneous drainage of ascites from umbilical hernia. It appears that they were trying to coordinate care of the patient to be transferred to [facility] and he was discharged to a SNF while awaiting transfer. The patient has no focal neurologic deficits on examination. His abdomen is distended but nontender. IV access is obtained, labs were drawn and sent. Chest x-ray and head CT have been ordered and are pending. The patient will be evaluated by another provider when a medical bed becomes available. The triage nurse is aware of the plan. The proposed plan of evaluation and treatment was discussed with the patient who verbalizes an understanding and agrees to proceed. Scripts Lactulose Liq 10 Gm/15 Ml Soln30 Ml PO Q8HR 10 Days Ref 0 Prov:Martin Pineda MD 11/12/16 Wilma Maciel November 12, 2016 18:21
[2016-11-12 18:39] LABS: AUTOMATED NEUTROPHIL # 3.6 TH/MM3 (1.8-7.7); BASOPHIL % 0.6 % (0.0-2.0); EOSINOPHIL # 0.3 TH/MM3 (0-0.4); EOSINOPHIL % 5.3 % (0.0-4.0); HEMATOCRIT 36.9 % (39.0-51.0); LYMPHOCYTE # 0.6 TH/MM3 (1.0-4.8); MEAN CELL VOLUME 95.6 FL (80.0-100.0); MEAN CORPUSCULAR HGB CONC 34.6 % (32.0-36.0); MONO % 19.7 % (0.0-8.0); NEUT % 64.4 % (16.0-70.0); PLATELET COUNT 71 TH/MM3 (150-450); RED BLOOD COUNT 3.86 MIL/MM3 (4.50-5.90); RED CELL DISTRIBUTION WIDTH 15.5 % (11.6-17.2); WHITE BLOOD COUNT 5.6 TH/MM3 (4.0-11.0)
[2016-11-12 18:44] LABS: HEMO FLAGS AUTO DIFF
[2016-11-12 18:58] LABS: APTT (PATIENT) 34.6 SEC (24.3-30.1); INTERNATIONAL NORMALIZED RATIO 1.3 RATIO
[2016-11-12 19:01] LABS: ALT (GPT) 42 U/L (12-78)
[2016-11-12 19:03] LABS: ALKALINE PHOSPHATASE 111 U/L (45-117); ANION GAP 7 MEQ/L (5-15); AST (GOT) 65 U/L (15-37); BICARBONATE 26.3 MEQ/L (21.0-32.0); BLOOD UREA NITROGEN 17 MG/DL (7-18); CHLORIDE 97 MEQ/L (98-107); GLOMERULAR FILTRATION RATE 77 ML/MIN (>89); POTASSIUM 4.9 MEQ/L (3.5-5.1); SODIUM (NA) 130 MEQ/L (136-145); TOTAL BILIRUBIN ADULT 3.4 MG/DL (0.2-1.0)
[2016-11-12 19:29] LABS: BANDS 9 % (0-6); BASOPHILS 1 % (0-2); EOSINOPHILS 1 % (0-4); NEUTROPHIL # MANUAL DIFF 4.4 TH/MM3 (1.8-7.7); POLYS (SEG NEUTROPHILS) 69 % (16-70); WBC DIFF SAMPLE 100
[2016-11-12 19:30] LABS: PLATELET ESTIMATE SMEAR LOW (NORMAL); PLATELET MORPHOLOGY NORMAL (NORMAL); SCAN/DIFF FINAL DIFF MANUAL
[2016-11-12 19:59] VITALS: BP 149/68; PULSE 65; RESP 17; O2SAT 98
[2016-11-12] MEDS ORDERED: SODIUM CHLORID 0.9% 500 ML INJ 500 ML IV ONE (20:15)
[2016-11-12] MEDS ORDERED: LACTULOSE SYRUP 20 GM/30 ML CUP PO ONE (20:15)
[2016-11-12] MEDS ORDERED: LACT10SO PO (20:21)
--- NOTE | 2016-11-12 20:21 | PD ---
Physical Exam Date Seen by Provider: November 12, 2016 Time Seen by Provider: 20:15 Narrative The patient is a 61-year-old male who was initially evaluated by the mid-level provider. Please refer to the initial history, physical, diagnostic evaluation, treatment modality plan. The patient has a history of cirrhosis, possible hepatocellular carcinoma, and recently had spontaneous drainage of ascites from an umbilical hernia. The patient was placed on vancomycin and discharged to the group home. The patient returns today from the group home for altered mental status. The patient does state he is having slight difficulty with his memory, denies any acute abdominal pain, fever, chills, sweats, chest pain, or shortness of breath. Data Data Last Documented VS Vital Signs Date Time Temp Pulse Resp B/P Pulse Ox O2 Delivery O2 Flow Rate FiO2 11/12/16 19:59 65 17 149/68 98 Room Air 11/12/16 16:56 98.1 Orders Ammonia (11/12/16 18:08) Complete Blood Count With Diff (11/12/16 18:08) Comprehensive Metabolic Panel (11/12/16 18:08) Prothrombin Time / Inr (Pt) (11/12/16 18:08) Act Partial Throm Time (Ptt) (11/12/16 18:08) Urinalysis - C+S If Indicated (11/12/16 18:08) Lactic Acid Sepsis Protocol (11/12/16 18:08) Lactulose Liq (Lactulose Liq) (11/12/16 20:15) Sodium Chlorid 0.9% 500 Ml Inj (Ns 500 M (11/12/16 20:15) Labs Laboratory Tests Test 11/12/16 11/12/16 18:20 21:00 White Blood Count 5.6 TH/MM3 Red Blood Count 3.86 MIL/MM3 Hemoglobin 12.7 GM/DL Hematocrit 36.9 % Mean Corpuscular Volume 95.6 FL Mean Corpuscular Hemoglobin 33.0 PG Mean Corpuscular Hemoglobin 34.6 % Concent Red Cell Distribution Width 15.5 % Platelet Count 71 TH/MM3 Mean Platelet Volume 9.8 FL Neutrophils (%) (Auto) 64.4 % Lymphocytes (%) (Auto) 10.0 % Monocytes (%) (Auto) 19.7 % Eosinophils (%) (Auto) 5.3 % Basophils (%) (Auto) 0.6 % Neutrophils # (Auto) 3.6 TH/MM3 Lymphocytes # (Auto) 0.6 TH/MM3 Monocytes # (Auto) 1.1 TH/MM3 Eosinophils # (Auto) 0.3 TH/MM3 Basophils # (Auto) 0.0 TH/MM3 CBC Comment AUTO DIFF Differential Total Cells 100 Counted Neutrophils % (Manual) 69 % Band Neutrophils % 9 % Lymphocytes % 6 % Monocytes % 14 % Eosinophils % 1 % Basophils % 1 % Neutrophils # (Manual) 4.4 TH/MM3 Differential Comment FINAL DIFF MANUAL Platelet Estimate LOW Platelet Morphology Comment NORMAL Prothrombin Time 15.0 SEC Prothromb Time International 1.3 RATIO Ratio Activated Partial 34.6 SEC Thromboplast Time Sodium Level 130 MEQ/L Potassium Level 4.9 MEQ/L Chloride Level 97 MEQ/L Carbon Dioxide Level 26.3 MEQ/L Anion Gap 7 MEQ/L Blood Urea Nitrogen 17 MG/DL Creatinine 0.99 MG/DL Estimat Glomerular Filtration 77 ML/MIN Rate Random Glucose 119 MG/DL Lactic Acid Level 3.8 mmol/L 3.8 mmol/L Calcium Level 9.5 MG/DL Total Bilirubin 3.4 MG/DL Aspartate Amino Transf 65 U/L (AST/SGOT) Alanine Aminotransferase 42 U/L (ALT/SGPT) Alkaline Phosphatase 111 U/L Ammonia 101 MCMOL/L Total Protein 7.3 GM/DL Albumin 3.4 GM/DL [facility] Medical Record Reviewed: Yes Supervised Visit with MARGARET: Yes Interpretation(s) Laboratory Tests Test 11/12/16 18:20 White Blood Count 5.6 TH/MM3 Red Blood Count 3.86 MIL/MM3 Hemoglobin 12.7 GM/DL Hematocrit 36.9 % Mean Corpuscular Volume 95.6 FL Mean Corpuscular Hemoglobin 33.0 PG Mean Corpuscular Hemoglobin 34.6 % Concent Red Cell Distribution Width 15.5 % Platelet Count 71 TH/MM3 Mean Platelet Volume 9.8 FL Neutrophils (%) (Auto) 64.4 % Lymphocytes (%) (Auto) 10.0 % Monocytes (%) (Auto) 19.7 % Eosinophils (%) (Auto) 5.3 % Basophils (%) (Auto) 0.6 % Neutrophils # (Auto) 3.6 TH/MM3 Lymphocytes # (Auto) 0.6 TH/MM3 Monocytes # (Auto) 1.1 TH/MM3 Eosinophils # (Auto) 0.3 TH/MM3 Basophils # (Auto) 0.0 TH/MM3 CBC Comment AUTO DIFF Differential Total Cells 100 Counted Neutrophils % (Manual) 69 % Band Neutrophils % 9 % Lymphocytes % 6 % Monocytes % 14 % Eosinophils % 1 % Basophils % 1 % Neutrophils # (Manual) 4.4 TH/MM3 Differential Comment FINAL DIFF MANUAL Platelet Estimate LOW Platelet Morphology Comment NORMAL Prothrombin Time 15.0 SEC Prothromb Time International 1.3 RATIO Ratio Activated Partial 34.6 SEC Thromboplast Time Sodium Level 130 MEQ/L Potassium Level 4.9 MEQ/L Chloride Level 97 MEQ/L Carbon Dioxide Level 26.3 MEQ/L Anion Gap 7 MEQ/L Blood Urea Nitrogen 17 MG/DL Creatinine 0.99 MG/DL Estimat Glomerular Filtration 77 ML/MIN Rate Random Glucose 119 MG/DL Lactic Acid Level 3.8 mmol/L Calcium Level 9.5 MG/DL Total Bilirubin 3.4 MG/DL Aspartate Amino Transf 65 U/L (AST/SGOT) Alanine Aminotransferase 42 U/L (ALT/SGPT) Alkaline Phosphatase 111 U/L Ammonia 101 MCMOL/L Total Protein 7.3 GM/DL Albumin 3.4 GM/DL Differential Diagnosis Differential diagnosis includes elevated ammonia level, subdural hemorrhage, UTI , pneumonia, delirium, medication side effect, sepsis. Narrative Course I, Dr. Pineda, have reviewed the advance practice practitioner's documentation and am in agreement, met with the patient face to face, made the diagnosis, and the medical decision making was done by me. *My assessment and Findings: The patient was initially evaluated by the mid- level provider, please refer to the initial history, physical, diagnostic evaluation, treatment modality plan. Patient does have a history of cirrhosis with spontaneous drainage from her umbilical hernia, was evaluated in the emergency Department last week, was admitted to the hospital, and underwent evaluation. The patient was seen by infectious disease to recommended vancomycin 1 g for 2 weeks. The patient has been receiving his antibiotics. He currently complains of mild confusion per the group home reports. The patient denies any symptoms including headache, chest pain, shortness breath, nausea, vomiting, or abdominal pain. On physical examination the patient is awake, alert, is oriented to person and place, but not the month or year. He is nonfocal on examination. Abdominal exam reveals mild ascites with a periumbilical hernia but no visible drainage. A dressing is in place. Laboratory evaluation reveals the patient's ammonia level is elevated at 101, no previous ammonia level to compare. The patient's lactic acid is mildly elevated at 3.8, the patient was administered 500 cc of normal saline. The patient was administer lactulose 30 mL's and will be discharged back to the group home with lactulose 30 mL's 3 times a day and repeat ammonia level in 3 days. Diagnosis Primary Impression: Hyperammonemia Additional Impression: Ascites Qualified Code: R18.8 - Other ascites Patient Instructions: General Instructions Additional Instruction: Lactulose as directed. Follow-up with your primary physician and graphotype operator. Return if symptoms worsen or progress. Med/Other Pt SpecificInfo: Prescription(s) given Scripts Lactulose Liq 10 Gm/15 Ml Soln30 Ml PO Q8HR 10 Days Ref 0 Prov:Martin Pineda MD 11/12/16 Disposition: 03 DISCHARGE TO SNF (discharged back to custodial facility) Martin Pineda MD November 12, 2016 20:21
[2016-11-12 20:31] LABS: LACTIC ACID GHOST NOT REPORTABLE
== END 2016-11-13 08:05 ==
LOC: NEPE 16:49 → NEDAMB 11-13 08:05
DX: E72.20 Disorder of urea cycle metabolism, unspecified (principal); R18.8 Other ascites; K42.9 Umbilical hernia without obstruction or gangrene; K74.60 Unspecified cirrhosis of liver; E11.9 Type 2 diabetes mellitus without complications; I10 Essential (primary) hypertension; Z79.84 Long term (current) use of oral hypoglycemic drugs; Z79.899 Other long term (current) drug therapy
CPT/HCPCS: 80053; 82140; 83605; 85007; 85027; 85610; 85730; 96360; 96361; 99284; J7040

== ENCOUNTER 2016-11-26 07:45 | Day surgery (SDC) | payer OTHER ==
[~2016-11-26 07:45] MED LIST changes: +LACT10SO PO; -VANC1000P IV
[2016-11-26 09:58] LABS: HEMATOCRIT 35.3 % (39.0-51.0); MEAN CELL VOLUME 95.5 FL (80.0-100.0); MEAN CORPUSCULAR HEMOGLOBIN 33.7 PG (27.0-34.0); MEAN CORPUSCULAR HGB CONC 35.3 % (32.0-36.0); PLATELET COUNT 101 TH/MM3 (150-450); RED CELL DISTRIBUTION WIDTH 16.2 % (11.6-17.2); WHITE BLOOD COUNT 2.5 TH/MM3 (4.0-11.0)
[2016-11-26 09:59] LABS: HEMO FLAGS AUTO DIFF
[2016-11-26 10:08] LABS: APTT (PATIENT) 35.5 SEC (24.3-30.1); INTERNATIONAL NORMALIZED RATIO 1.4 RATIO; PROTHROMBIN TIME - PATIENT 15.5 SEC (9.8-11.6)
[2016-11-26 10:34] LABS: BASOPHILS 13 % (0-2); EOSINOPHILS 8 % (0-4); POLYS (SEG NEUTROPHILS) 1 % (16-70); WBC DIFF SAMPLE 100
[2016-11-26 10:37] LABS: PLATELET ESTIMATE SMEAR LOW (NORMAL); PLATELET MORPHOLOGY NORMAL (NORMAL)
[2016-11-26 10:38] LABS: SCAN/DIFF FINAL DIFF MANUAL
[2016-11-26 10:55] VITALS: BP 111/64; PULSE 76; RESP 18; TEMP 98.3; O2SAT 94
== END 2016-11-26 11:10 | disposition still patient (30) ==
LOC: HRAD 07:45 → HRIP 07:47 → HRAD 11:10
PROVIDERS: ATTEND Hospitalist
DX: R18.8 Other ascites (principal)
CPT/HCPCS: 85007; 85027; 85610; 85730; 99211; G0463

== ENCOUNTER 2016-11-26 11:19 | Inpatient (IN) | payer OTHER ==
[~2016-11-26] VITALS: Ht 182.9 cm; Wt 73.2 kg
[2016-11-26 11:21] VITALS: BP 116/57; PULSE 69; RESP 18; TEMP 96.8; O2SAT 98
--- NOTE | 2016-11-26 12:35 | PD ---
HPI Chief Complaint: Abnormal Results Time Seen by Provider: 12:18 Travel History International Travel<30 days: No Contact w/Intl Traveler<30days: No Traveled to known affect area: No History of Present Illness HPI Patient 61-year-old male seen by me previously for liver failure and ascites presents emergency Department with altered mental status, apparently was sent here because on routine lab work he had undetectable neutrophil count. The patient has been admitted recently to the hospital for a spontaneously draining ascitic belly. He was placed on vancomycin for possible bacterial peritonitis. Apparently he has completed therapy. The patient's history is extremely limited at this time given his altered mental status. When asked where he is right now he started spelling gibberish words. No family is available for further history. PFSH Past Medical History Asthma: Yes Cancer: No Cardiovascular Problems: Yes High Cholesterol: No Congestive Heart Failure: No Diabetes: Yes Diminished Hearing: No Endocrine: Yes Gastrointestinal Disorders: Yes (HEMACHROMATOSIS/LIVER FAILURE) GERD: Yes Genitourinary: No Hypertension: Yes Musculoskeletal: No Neurologic: No Psychiatric: No Past Surgical History Abdominal Surgery: Yes (HERNIA REPAIR X2) Other Surgery: Yes (umbilical hernia repair 2016) Social History Alcohol Use: No Tobacco Use: No Substance Use: No Allergies-Medications (Allergen,Severity, Reaction): Coded Allergies: *MDRO Multi-Drug Resistant Organism (Verified Adverse Reaction, Unknown, ) MRSA Peritoneal Fluid 11/01/16 Reported Meds & Prescriptions Reported Meds & Active Scripts Active Lactulose Liq (Lactulose) 10 Gm/15 Ml Soln 30 Ml PO Q8HR 10 Days Aldactone (Spironolactone) 100 Mg Tab 100 Mg PO QID 30 Days Reported Metformin (Metformin HCl) 500 Mg Tab 500 Mg PO BIDPC With meals Omeprazole 20 Mg Tab 20 Mg PO DAILY Nadolol 20 Mg Tab 20 Mg PO DAILY Review of Systems Except as stated in HPI: all other systems reviewed are Neg Physical Exam Narrative GENERAL: [Well-developed well-nourished mildly jaundiced with extremely distended belly but in no obvious distress. SKIN: Focused skin assessment warm/dry. HEAD: Atraumatic. Normocephalic. EYES: Pupils equal and round. No scleral icterus. No injection or drainage. ENT: No nasal bleeding or discharge. Mucous membranes pink and moist. NECK: Trachea midline. No JVD. CARDIOVASCULAR: Regular rate and rhythm. No murmur appreciated. RESPIRATORY: No accessory muscle use. Clear to auscultation. Breath sounds equal bilaterally. GASTROINTESTINAL: Abdomen soft, non-tender, abdomen distended consistent with the term twin gestation. Fluid wave present. Nontender no rebound no percussive tenderness. There is an abdominal wounds to the right of the umbilicus, no active drainage appreciated. Hepatic and splenic margins not palpable. MUSCULOSKELETAL: No obvious deformities. No clubbing. No cyanosis. No edema. NEUROLOGICAL: Awake and alert oriented to self only. No obvious cranial nerve deficits. Motor grossly within normal limits. Very confused. No slurred speech. PSYCHIATRIC: Unable to assess Data Data Last Documented VS Vital Signs Date Time Temp Pulse Resp B/P Pulse Ox O2 Delivery O2 Flow Rate FiO2 11/26/16 13:52 60 18 128/80 99 Room Air 11/26/16 11:21 96.8 Orders Electrocardiogram (11/26/16 12:18) Complete Blood Count With Diff (11/26/16 12:18) Comprehensive Metabolic Panel (11/26/16 12:18) Prothrombin Time / Inr (Pt) (11/26/16 12:18) Act Partial Throm Time (Ptt) (11/26/16 12:18) Lactic Acid Sepsis Protocol (11/26/16 12:18) Magnesium (Mg) (11/26/16 12:18) Phosphorus (Po4) (11/26/16 12:18) Lipase (11/26/16 12:18) Urinalysis - C+S If Indicated (11/26/16 12:18) Blood Culture (11/26/16 12:18) Chest, Single Ap (11/26/16 12:18) Blood Glucose (11/26/16 12:18) Ecg Monitoring (11/26/16 12:18) Iv Access Insert/Monitor (11/26/16 12:18) Oximetry (11/26/16 12:18) Oxygen Administration (11/26/16 12:18) Isolation 08,20 (11/26/16 12:19) Ammonia (11/26/16 13:07) Calcium Chloride Inj (Calcium Chloride I (11/26/16 14:00) Furosemide Inj (Lasix Inj) (11/26/16 13:45) Admit Order (Ed Use Only) (11/26/16 ) Labs Laboratory Tests Test 11/26/16 11/26/16 12:50 13:45 White Blood Count 2.6 TH/MM3 Red Blood Count 3.80 MIL/MM3 Hemoglobin 12.6 GM/DL Hematocrit 36.3 % Mean Corpuscular Volume 95.6 FL Mean Corpuscular Hemoglobin 33.1 PG Mean Corpuscular Hemoglobin 34.6 % Concent Red Cell Distribution Width 16.2 % Platelet Count 112 TH/MM3 Mean Platelet Volume 8.9 FL Neutrophils (%) (Auto) % Lymphocytes (%) (Auto) % Monocytes (%) (Auto) % Eosinophils (%) (Auto) % Basophils (%) (Auto) % Neutrophils # (Auto) TH/MM3 Lymphocytes # (Auto) TH/MM3 Monocytes # (Auto) TH/MM3 Eosinophils # (Auto) TH/MM3 Basophils # (Auto) TH/MM3 CBC Comment AUTO DIFF Differential Total Cells 100 Counted Neutrophils % (Manual) 3 % Band Neutrophils % 1 % Lymphocytes % 25 % Monocytes % 47 % Eosinophils % 12 % Basophils % 10 % Neutrophils # (Manual) 0.1 TH/MM3 Promyelocytes 1 % Differential Comment FINAL DIFF MANUAL Blastocytes 1 % Platelet Estimate LOW Platelet Morphology Comment ENLARGED Tear Drop Cells 1+ Prothrombin Time 15.0 SEC Prothromb Time International 1.3 RATIO Ratio Activated Partial 35.9 SEC Thromboplast Time Sodium Level 130 MEQ/L Potassium Level 5.7 MEQ/L Chloride Level 95 MEQ/L Carbon Dioxide Level 28.6 MEQ/L Anion Gap 6 MEQ/L Blood Urea Nitrogen 34 MG/DL Creatinine 1.98 MG/DL Estimat Glomerular Filtration 35 ML/MIN Rate Random Glucose 130 MG/DL Lactic Acid Level 3.4 mmol/L Calcium Level 10.6 MG/DL Phosphorus Level 2.6 MG/DL Magnesium Level 1.8 MG/DL Total Bilirubin 4.7 MG/DL Aspartate Amino Transf 54 U/L (AST/SGOT) Alanine Aminotransferase 46 U/L (ALT/SGPT) Alkaline Phosphatase 111 U/L Total Protein 8.5 GM/DL Albumin 3.0 GM/DL Lipase 245 U/L Ammonia 73 MCMOL/L [facility] Medical Decision Making Medical Screen Exam Complete: Yes Emergency Medical Condition: Yes Interpretation(s) EKG shows normal sinus rhythm with sinus arrhythmia, normal axis and normal R- wave progression. No concerning ST-T changes. Intervals within normal limits. This normal EKG. Differential Diagnosis Ascites, liver failure, hepatic encephalopathy, neutropenia. Narrative Course Patient was roomed in the emergency department, history is extremely limited by the patient's encephalopathy. Ammonia level is elevated. [facility] hospitalist Dr. Kolb has arrived to examine the patient. He states that he knows the patient well and is watched a gradual decline in his health over the past few months. The neutropenia is new for the patient. However the patient does not appear to be toxic at this time. The wound in the abdomen apparently was growing staph and a previous admission however this was thought to be skin contaminant and the patient was seen by infectious disease at that time. He does have a history of hemachromatosis. Apparently patient at his baseline was difficult to evp general counsel on cessation of alcohol. They've tried to place him on the liver transplant list multiple times and apparently he does not qualify. This time the patient does not have any signs symptoms of active infection and will defer antibiotic therapy to Dr. Kolb. The patient his obvious need for admission he was placed on neutropenic precautions on arrival. Prognosis is poor. Diagnosis Primary Impression: Neutropenia Qualified Code: D70.9 - Neutropenia, unspecified type Additional Impressions: Hepatocellular carcinoma Hemochromatosis Umbilical hernia Liver mass Hyperammonemia Admitting Information Admitting Physician Requests: Admit Condition: Luis Enrique Torres MD Nov 26, 2016 12:35
--- NOTE | 2016-11-26 13:01 | RADRPT ---
EXAM DATE/TIME: 11/26/2016 12:38 [facility] COMPARISON: CHEST SINGLE AP, November 05, 2016, 16:24. INDICATIONS : Fever; abnormal labs. MEDICAL HISTORY : Hypertension, Asthma. Diabetes. Liver failure. Hemachromatosis. SURGICAL HISTORY : None. ENCOUNTER: Initial ACUITY: 1 day PAIN SCORE: 0/10 LOCATION: Bilateral chest FINDINGS: A single view of the chest demonstrates the lungs to be symmetrically aerated without evidence of mas s, infiltrate or effusion. The cardiomediastinal contours are unremarkable. Osseous structures are intact. CONCLUSION: 1. No acute cardiopulmonary findings. Cristopher Macias MD on November 26, 2016 at 12:58 Board Certified Radiologist. This report was verified electronically.
[2016-11-26 13:18] LABS: HEMATOCRIT 36.3 % (39.0-51.0); MEAN CELL VOLUME 95.6 FL (80.0-100.0); MEAN CORPUSCULAR HEMOGLOBIN 33.1 PG (27.0-34.0); MEAN CORPUSCULAR HGB CONC 34.6 % (32.0-36.0); PLATELET COUNT 112 TH/MM3 (150-450); RED CELL DISTRIBUTION WIDTH 16.2 % (11.6-17.2); WHITE BLOOD COUNT 2.6 TH/MM3 (4.0-11.0)
[2016-11-26 13:21] LABS: ALT (GPT) 46 U/L (12-78); ANION GAP 6 MEQ/L (5-15); AST (GOT) 54 U/L (15-37); BICARBONATE 28.6 MEQ/L (21.0-32.0); BLOOD UREA NITROGEN 34 MG/DL (7-18); CHLORIDE 95 MEQ/L (98-107); GLOMERULAR FILTRATION RATE 35 ML/MIN (>89); MAGNESIUM 1.8 MG/DL (1.5-2.5); POTASSIUM 5.7 MEQ/L (3.5-5.1); SODIUM (NA) 130 MEQ/L (136-145)
[2016-11-26 13:22] LABS: APTT (PATIENT) 35.9 SEC (24.3-30.1); INTERNATIONAL NORMALIZED RATIO 1.3 RATIO
[2016-11-26 13:23] LABS: ALKALINE PHOSPHATASE 111 U/L (45-117); TOTAL BILIRUBIN ADULT 4.7 MG/DL (0.2-1.0)
[2016-11-26 13:37] LABS: HEMO FLAGS AUTO DIFF
[2016-11-26] MEDS ORDERED: FUROSEMIDE 40 MG/4 ML VIAL IV PUSH ONE (13:45)
[2016-11-26 13:48] VITALS: O2SAT 98
[2016-11-26 13:52] VITALS: BP 128/80; PULSE 60; RESP 18; O2SAT 99
[2016-11-26] MEDS ORDERED: CALCIUM CHLORIDE INJ 2 GM in SODIUM CHLORIDE 0.9% INJ 100 ML IV ONE (14:00)
[2016-11-26 14:14] LABS: BASOPHILS 10 % (0-2)
[2016-11-26 14:19] LABS: BANDS 1 % (0-6); EOSINOPHILS 12 % (0-4); POLYS (SEG NEUTROPHILS) 3 % (16-70); PROMYELOCYTES 1 % (0-0); WBC DIFF SAMPLE 100
[2016-11-26 14:20] LABS: PLATELET ESTIMATE SMEAR LOW (NORMAL); SCAN/DIFF FINAL DIFF MANUAL; TEARDROP RBCS 1+ (NORMAL)
--- NOTE | 2016-11-26 14:25 | HHI.HP ---
HPI Service [facility] Hospitalists Primary Care Physician Dr. Gigi Kelley Admission Diagnosis Acute renal failure, AMS Travel History International Travel<30 Days: No Contact w/Intl Traveler <30 Da: No Traveled to Known Affected Are: No History of Present Illness Mr. Jackman is a 61 y/o WM with hepatic cirrhosis, esophageal varices, hx of regular alcohol use (none since 06/2016) and hereditary hemochromatosis. Pt was recently admitted from 10/26/16 to 11/07/16 with spontaneous drainage of ascites from umbilical hernia. Prior to this admission pt had an abnormal MRI on 08/20/16 which noted 2 hypervascular lesions within the dome of the liver and a 3.4 x 3.3cm area of decreased contrast enhancement along the right lobe of the liver inferiorly which is significantly enlarge in size and there was enhancement within this on previously dated imaging studies on 06/20/15. His AFP was elevated to 9.5. He then underwent evaluation with PET/CT on 10/07/16 which noted low grade uptake corresponding to the patients 4.1 x 4cm mass along the inferior aspect of the right lobe of the liver, concerning for malignancy. The pt had undergone several paracentesis prior to his recent admission but had not been on any diuretics. Pt was started on Aldactone and IV Albumin and the Aldactone was titrated up slowly to 100mg QID. His renal function and BP remained stable during this admission. Cytology from his ascetic fluid was negative for malignant cells. He was noted to have MRSA which grew out of his ascetic fluid. Pt was given po Levaquin from 10/31-11/03 and a dose of Vancomycin IV on 11/02. MRSA resistant to Levaquin so this was stopped and Abx changed to Vancomycin IV. Pt was seen by ID who recommended 2 weeks of IV Vancomycin treatment. He had a PICC placed and was discharged to SNF. We had attempted to get him evaluated at tertiary centers during that admission but [facility] refused to evaluate pt until December when 6month is up from last EtOH drink. [facility] agreed to accept patient for treatment of HCC +/- transplant evaluation if there is no vascular involvement but pt was NOT cleared for hospital to hospital transfer. Pt was seen in the ED on 11/12 with AMS and was noted to have an elevated ammonia level and he was started on Lactulose. Pt was seen by [facility] as an outpt on 11/21/16 and per their records the pt was on Aldactone 50mg, Nadolol 10mg and Lactulose 15mL TID. They added Lasix 20mg daily to his regimen. He was sent to the ED at [facility] on 11/26/16 with AMS. He is notably confused and unable to answer questions appropriately. His labs are significantly abnormal with neutropenia and acute renal failure. Pts Neutrophils are 0.1, Cr 1.98, and GFR of 35, Na+ 130, and K+ 5.7. Pts abdomen is significantly distended and his umbilical hernia has increased quite significantly since his previous admission. Pt is afebrile and vitals signs are currently stable. Review of Systems ROS Limitations: Clinical Condition, Altered Mental Status Past Family Social History Past Medical History Presumed HCC Hemochromatosis Cirrhosis with ascites Esophageal varices leading to GI bleed Recurrent umbilical hernia GERD Hyperglycemia/ ? DM Past Surgical History Umbilical hernia repair 2 several years ago in [place] Liver biopsy regarding hemochromatosis Esophageal varices banding Reported Medications Lactulose Liq (Lactulose) 10 Gm/15 Ml Soln 30 Ml PO Q8HR 10 Days Aldactone (Spironolactone) 100 Mg Tab 100 Mg PO QID 30 Days Metformin (Metformin HCl) 500 Mg Tab 500 Mg PO BIDPC With meals Omeprazole 20 Mg Tab 20 Mg PO DAILY Nadolol 20 Mg Tab 20 Mg PO DAILY Allergies: Coded Allergies: *MDRO Multi-Drug Resistant Organism (Verified Adverse Reaction, Unknown, ) MRSA Peritoneal Fluid 11/01/16 Family History Mother at age 74 of COPD complications Father at age 77 of alcoholic cirrhosis Social History Patient previously lived in [place], [place] and [place], moved here in March 2016. No tobacco, denies illicit drug use Hx of regular alcohol use, 2-3 drinks several times per week, none since June 2016 He has no children. His brother is his next of kin and lives nearby him. Physical Exam Vital Signs Vital Signs Date Time Temp Pulse Resp B/P Pulse Ox O2 Delivery O2 Flow Rate FiO2 11/26/16 13:52 18 99 Room Air 11/26/16 13:48 98 Room Air 11/26/16 11:21 96.8 69 18 116/57 98 Physical Exam GENERAL: NAD, confused, not answering questions appropriately HEENT: Atraumatic. Normocephalic. No temporal or scalp tenderness. No scleral icterus. Airway patent. NECK: Trachea midline, supple, nontender. CARDIO: Regular RESP: CTA bilaterally. No wheezes, rales, or rhonchi. ABD: Firm distended abdomen, large umbilical hernia. EXT: Extremities without clubbing, cyanosis, or edema. NEURO: Awake and alert. Motor and sensory grossly within normal limits. Normal speech. Laboratory Laboratory Tests Test 11/26/16 12:50 White Blood Count 2.6 Red Blood Count 3.80 Hemoglobin 12.6 Hematocrit 36.3 Mean Corpuscular Volume 95.6 Mean Corpuscular Hemoglobin 33.1 Mean Corpuscular Hemoglobin 34.6 Concent Red Cell Distribution Width 16.2 Platelet Count 112 Mean Platelet Volume 8.9 Neutrophils (%) (Auto) Lymphocytes (%) (Auto) Monocytes (%) (Auto) Eosinophils (%) (Auto) Basophils (%) (Auto) Neutrophils # (Auto) Lymphocytes # (Auto) Monocytes # (Auto) Eosinophils # (Auto) Basophils # (Auto) CBC Comment AUTO DIFF Prothrombin Time 15.0 Prothromb Time International 1.3 Ratio Activated Partial 35.9 Thromboplast Time Sodium Level 130 Potassium Level 5.7 Chloride Level 95 Carbon Dioxide Level 28.6 Anion Gap 6 Blood Urea Nitrogen 34 Creatinine 1.98 Estimat Glomerular Filtration 35 Rate Random Glucose 130 Lactic Acid Level 3.4 Calcium Level 10.6 Phosphorus Level 2.6 Magnesium Level 1.8 Total Bilirubin 4.7 Aspartate Amino Transf 54 (AST/SGOT) Alanine Aminotransferase 46 (ALT/SGPT) Alkaline Phosphatase 111 Total Protein 8.5 Albumin 3.0 Lipase 245 Date/Time Procedure Status Source Growth 11/26/16 12:55 Aerobic Blood Culture Received Blood Peripheral Pending 11/26/16 12:55 Anaerobic Blood Culture Received Blood Peripheral Pending Result Diagram: 11/26/16 1250 11/26/16 1250 Imaging Last Impressions Chest X-Ray 11/26/16 1218 Signed Impressions: Service Date/Time: Saturday, November 26, 2016 12:38 - CONCLUSION: 1. No acute cardiopulmonary findings. Cristopher Macias MD Septic Shock Reassessment Heart: Regular rate and rhythm Lungs: Clear Skin: Warm Assessment and Plan Problem List: (1) Hyperammonemia Status: Acute Plan: - Pt is a 61 y/o male with liver cirrhosis, recurrent ascites, hx of alcohol abuse, hx of hemochromatosis, and liver mass - Pt recently had an extended admission in 10/2016 after he began leaking ascites from his umbilical hernia. - Prior to this admission pt was noted to have a liver mass and elevated AFP 9.5. - He had an outpt PET/CT on 10/07/16 which noted low grade uptake corresponding to the patients 4.1 x 4cm mass along the inferior aspect of the right lobe of the liver, concerning for malignancy. He was seen by Dr. Ventura prior to his recent admission. - Pt was started on Aldactone and IV Albumin and the Aldactone was titrated up slowly to 100mg QID during that admission. His renal function and BP remained stable during this admission. Cytology from his ascetic fluid was negative for malignant cells. - He was noted to have MRSA which grew out of his ascetic fluid but it was unclear if this was related to colonization of the umbilical hernia vs. true MRSA SBP. Pt was treated with Vancomycin IV during admission and was to continue this for 2 weeks as an outpt - He was discharged to SNF. - We had attempted to get him evaluated at tertiary centers during that admission but [facility] refused to evaluate pt until December when 6month from last EtOH drink. [facility] agreed to accept patient for treatment of HCC +/- transplant evaluation if there is no vascular involvement but pt was NOT cleared for hospital to hospital transfer. - Pt was seen in the ED on 11/12 with AMS and was noted to have an elevated ammonia level and he was started on Lactulose. He was seen by [facility] as an outpt on 11/21/16 and they added Lasix 20mg daily to his regimen. - He was sent to the ED at [facility] on 11/26/16 with AMS. He is notably confused and unable to answer questions appropriately. His labs are significantly abnormal with neutropenia and acute renal failure. Pts Neutrophils are 0.1, Cr 1.98, and GFR of 35, Na+ 130, and K+ 5.7. Pts abdomen is significantly distended and his umbilical hernia has increased quite significantly since his previous admission. - We will resume Lactulose, request ST evaluation to assess his swallow - Not a good idea to place an NGT as he has hx of esophageal varices. - We will give some IV Albumin - Pt was a DNR during his last admission. - We will attempt to reach the pts family to see what their wishes are for continued aggressive care - Palliative care/Hospice would be appropriate - Hold on diuretics for now. If family wants continued aggressive care we will request Paracentesis. - Supportive care - Neutropenic precautions (2) ARF (acute renal failure) Status: Acute Plan: - See above. - This is likely secondary to diuretics. - Hold off on fluids for now - Give some IV albumin - Monitor labs (3) Liver mass Status: Chronic Plan: - See above (4) Ascites Status: Chronic Plan: - See above (5) Liver cirrhosis Status: Chronic Plan: - See above (6) Hemochromatosis Status: Chronic Plan: - See above. Assessment and Plan Patient examined. Assessment and plan formulated with Louisa Ga PA-C. I agree with the above. ESLD. liver mass. encephalopathic. ascites and large umbilical hernia. has hemachromatosis and hx etoh abuse. not candidate for liver tx now. await family decision on goals of care. would appear to need hospice. Physician Certification 2 Midnight Certification Type: Admission for Inpatient Services Order for Inpatient Services The services are ordered in accordance with Medicare regulations or non- Medicare payer requirements, as applicable. In the case of services not specified as inpatient-only, they are appropriately provided as inpatient services in accordance with the 2-midnight benchmark. Estimated LOS (days): 3 3 days is the estimated time the patient will need to remain in the hospital, assuming treatment plan goals are met and no additional complications. Post-Hospital Plan: Not yet determined Louisa Ga Nov 26, 2016 14:24 Angel Kolb MD Nov 27, 2016 08:48
[2016-11-26 14:29] LABS: PLATELET MORPHOLOGY ENLARGED (NORMAL)
[2016-11-26 14:32] LABS: BLASTS 1 % (0-0); NEUTROPHIL # MANUAL DIFF 0.1 TH/MM3 (1.8-7.7)
[2016-11-26 14:56] LABS: LACTIC ACID GHOST NOT REPORTABLE
[2016-11-26 15:30] VITALS: BP 142/76; PULSE 70; RESP 18; O2SAT 97
[2016-11-26] MEDS: SODIUM CHLOR 0.9% 1000 ML INJ 1,000 ML IV SCH (15:40)
[2016-11-26] MEDS: ALBUMIN HUMAN 25% 25 GM/100 ML BAGP IV SCH (15:41)
[2016-11-26] MEDS: PANTOPRAZOLE SODIUM 40 MG VIAL IV PUSH SCH (15:41)
--- NOTE | 2016-11-26 17:14 | HHI.HCPN ---
Mr. Jackman is a 67-year-old male with a medical history significant for hemochromatosis, liver cirrhosis, EtOH abuse and recurrent ascites requiring frequent paracentesis. Patient known to palliative care services during previous acute hospitalization from 10/26/16 to 11/07/16. History of infective ascites, positive for MRSA. Patient was treated with antibiotics. PET/CT revealing 4.1 x 4.0 cm mass along the inferior aspect right lobe with low grade uptake concerning for malignancy. According to medical records, [facility] has refused to evaluate pt until December when 6month is up from last EtOH drink. [facility] has previously agreed to accept patient for treatment of HCC +/- transplant evaluation if there is no vascular involvement but pt was not cleared for hospital to hospital transfer, patient to be considered for outpatient evaluation. Pending liver biopsy, as per GI, Dr. Ball's note on 11/06/16, "the diagnosis of hepatocellular carcinoma is made with 90% confidence". Today, patient was sent to emergency room secondary to altered mental mental status. He was found profoundly neutropenic with large ascites. GI has been consulted. Palliative care has been consulted for further clarifications of goals of care given decompensated end-stage liver disease. Patient was seen in ED, confused. Alert to self but disoriented as to place, time and situation. Spoke with patient's brother Doc Jackman who is healthcare surrogate decision maker. Copy of advance directives in file. Confirmed CODE STATUS as no code. DNR/DNI. Brother in agreement to meeting with palliative care for family meeting tomorrow 11/27/16 after 1 PM. Complete palliative care consult to follow. Case discussed with ED nurse Rebeka. JUJU Colby. Palliative Care . . Geovanna Perez Nov 26, 2016 17:14
[2016-11-26 17:32] VITALS: BP 148/55; PULSE 76; RESP 18; TEMP 96; O2SAT 95
--- NOTE | 2016-11-26 17:44 | PD.CONS ---
HPI History of Present Illness This is a 61 year old male with a history of liver cirrhosis, hemochromatosis, esophageal varices, and suspected hepatocellular carcinoma, who presented to the ER for evaluation of altered mental status and was admitted for severe hepatic encephalopathy, acute renal failure, liver mass, ascites, liver cirrhosis, and hemochromatosis. GI was consulted for further evaluation. He is well known to our service and has a complicated medical history. He was diagnosed with hemochromatosis many years ago. He was drinking alcohol regularly up until June of 2016, when he stopped completely. In August he had an MRI (08/20/16)----> 2 hypervascular lesions within the dome of the liver and a 3.4 x 3.3cm area of decreased contrast enhancement along the right lobe of the liver inferiorly which is significantly enlarge in size and there was enhancement within this on previously dated imaging studies on 06/20/15. His AFP was elevated to 9.5. He then underwent evaluation with PET/CT on 10/07/16 which noted low grade uptake corresponding to the patients 4.1 x 4cm mass along the inferior aspect of the right lobe of the liver, concerning for malignancy. He has been having issues with recurrent ascites and had undergone several paracentesis prior to his recent admission but had not been on any diuretics. He was then hospitalized from 10/26/16 to 11/07/16 for spontaneous drainage of ascites from umbilical hernia. During this hospitalization, he underwent paracentesis and he was found to have MRSA in his ascitic fluid. He was given a dose of Vancomycin and started on Levaquin, although this was then found to be resistent to levaquin and therefore his antibiotics were changed to Vancomycin IV. He was evaluated by ID, who recommended 2 weeks of IV Vanco. He had a PICC line placed for IV antibiotics and was discharged to a intermediate facility. Prior to his discharge, we had contacted [facility] for possible transfer, but they refused to evaluate the patient until December, which would olive 6 months from his last alcohol intake. We also contacted [facility], who agreed to accept the patient for treatment of HCC +/- transplant evaluation if there is no vascular involvement but pt was NOT cleared for hospital to hospital transfer. The plan was then for him to follow up with [facility] as outpatient. He was then seen by our office on 11/21/16, at which time an outpatient paracentesis was ordered, he was started on lasix 20mg daily in addition to his spironolactone 50mg, Nadolol 10mg, and Lactulose 15mL TID. A outpatient referral to [facility] was also placed- it appears this is pending financial authorization. The patient is currently extremely lethargic. He does arouse, but quickly drifts back off to sleep and is only able to provide a very limited history. He is oriented to self, but could not recall where he was. He does not know why he is in the hospital. He denies any nausea, vomiting, abdominal pain, or bleeding. He reports that he has been "eating okay." He drifts back to sleep so it is very difficult to obtain any other history from him. He reports that he continues to have issues with recurrent ascites, but was unable to state when his last paracentesis was. According to our records in this facility, he last had a paracentesis on 10/22/16, at which time he had 15,300cc removed. According to the office note, the plan was for him to have a paracentesis on 11/26, but he has not had this done as of yet. (Awilda Palmer) PFSH Past Medical History Suspected hepatocellular carcinoma Hemochromatosis Liver cirrhosis Hx regular ETOH abuse, last June of 2016 Jones's Esophagus Recurrent ascites Esophageal varices Umbical hernia SBP HTN Hepatic encephalopathy Thrombocytopenia GERD Past Surgical History Umbilical hernia repair 2 several years ago in [place] Liver biopsy regarding hemochromatosis Esophageal varices banding (Awilda Palmer) Coded Allergies: *MDRO Multi-Drug Resistant Organism (Verified Adverse Reaction, Unknown, ) MRSA Peritoneal Fluid 11/01/16 Medications Allergies Coded Allergies Type Severity Reaction Last Updated Verified *MDRO Multi-Drug Resistant Organism Adverse Reaction Unknown 11/12/16 Yes Active Scripts Medications Dose Route/Sig Days Date Category Dose Instructions Lactulose Liq (Lactulose) 10 Gm/15 Ml Soln 30 Ml PO Q8HR 10 11/12/16 Rx Aldactone (Spironolactone) 100 Mg Tab 100 Mg PO QID 30 11/07/16 Rx Metformin (Metformin HCl) 500 Mg Tab 500 Mg PO BIDPC 09/08/16 Reported With meals Omeprazole 20 Mg Tab 20 Mg PO DAILY 09/08/16 Reported Nadolol 20 Mg Tab 20 Mg PO DAILY 09/08/16 Reported Lasix 20mg po daily Family History Mother at age 74 of COPD complications Father at age 77 of alcoholic cirrhosis Social History No tobacco, denies illicit drug use Hx of regular alcohol use, 2-3 drinks several times per week, none since June 2016 (Awilda Palmer) Review of Systems ROS Unable to obtain but denies abdominal pain, nausea, vomiting, decreased appetite. (Awilda Palmer) GI Exam Vitals I&O Vital Signs Date Time Temp Pulse Resp B/P Pulse Ox O2 Delivery O2 Flow Rate FiO2 11/26/16 15:30 70 18 142/76 97 Room Air 11/26/16 13:52 60 18 128/80 99 Room Air 11/26/16 13:52 18 99 Room Air 11/26/16 13:48 98 Room Air 11/26/16 11:21 96.8 69 18 116/57 98 Imaging Last Impressions Chest X-Ray 11/26/16 1218 Signed Impressions: Service Date/Time: Saturday, November 26, 2016 12:38 - CONCLUSION: 1. No acute cardiopulmonary findings. Cristopher Macias MD Laboratory Test 11/26/16 11/26/16 12:50 13:45 White Blood Count 2.6 TH/MM3 Red Blood Count 3.80 MIL/MM3 Hemoglobin 12.6 GM/DL Hematocrit 36.3 % Mean Corpuscular Volume 95.6 FL Mean Corpuscular Hemoglobin 33.1 PG Mean Corpuscular Hemoglobin 34.6 % Concent Red Cell Distribution Width 16.2 % Platelet Count 112 TH/MM3 Mean Platelet Volume 8.9 FL Neutrophils (%) (Auto) % Lymphocytes (%) (Auto) % Monocytes (%) (Auto) % Eosinophils (%) (Auto) % Basophils (%) (Auto) % Neutrophils # (Auto) TH/MM3 Lymphocytes # (Auto) TH/MM3 Monocytes # (Auto) TH/MM3 Eosinophils # (Auto) TH/MM3 Basophils # (Auto) TH/MM3 CBC Comment AUTO DIFF Differential Total Cells 100 Counted Neutrophils % (Manual) 3 % Band Neutrophils % 1 % Lymphocytes % 25 % Monocytes % 47 % Eosinophils % 12 % Basophils % 10 % Neutrophils # (Manual) 0.1 TH/MM3 Promyelocytes 1 % Differential Comment FINAL DIFF MANUAL Blastocytes 1 % Platelet Estimate LOW Platelet Morphology Comment ENLARGED Tear Drop Cells 1+ Prothrombin Time 15.0 SEC Prothromb Time International 1.3 RATIO Ratio Activated Partial 35.9 SEC Thromboplast Time Sodium Level 130 MEQ/L Potassium Level 5.7 MEQ/L Chloride Level 95 MEQ/L Carbon Dioxide Level 28.6 MEQ/L Anion Gap 6 MEQ/L Blood Urea Nitrogen 34 MG/DL Creatinine 1.98 MG/DL Estimat Glomerular Filtration 35 ML/MIN Rate Random Glucose 130 MG/DL Lactic Acid Level 3.4 mmol/L Calcium Level 10.6 MG/DL Phosphorus Level 2.6 MG/DL Magnesium Level 1.8 MG/DL Total Bilirubin 4.7 MG/DL Aspartate Amino Transf 54 U/L (AST/SGOT) Alanine Aminotransferase 46 U/L (ALT/SGPT) Alkaline Phosphatase 111 U/L Total Protein 8.5 GM/DL Albumin 3.0 GM/DL Lipase 245 U/L Ammonia 73 MCMOL/L Date/Time Procedure Status Source Growth 11/26/16 12:55 Aerobic Blood Culture Received Blood Peripheral Pending 11/26/16 12:55 Anaerobic Blood Culture Received Blood Peripheral Pending Physical Examination HEENT: Normocephalic; atraumatic; no jaundice. CHEST: CTA CARDIAC: RRR ABDOMEN: Semifirm, large amount ascites noted. Large umbilical hernia; hepatosplenomegaly; bowel sounds are present in all four quadrants. EXTREMITIES: No edema BLE SKIN: Normal; no rash; no jaundice. FIELD LIABILITY GENERALIST: Lethargic, confused (Awilda Palmer) Assessment and Plan Plan ASSESSMENT: - Severe hepatic encephalopathy. On Lactulose 15mL po TID at SNF. He presents with AMS, lethargy. He is oriented to self only and it is difficult to obtain any history from because he is confused and drifts back to sleep. Ammonia 73. Lactulose 30 po QID ordered here. Will add Xifaxan 550mg po BID. - Recurrent ascites with recent MRSA SBP (resistent to Levaquin). S/P 2 weeks of IV Vanco. Lasix 20mg daily, Aldactone 50mg po daily per GI note 11/21. Albumin 25mg IVPB q8h. Will hold on diuretics at this time because of his ARF/Electrolyte abnormalities. Await palliative care meeting. If he decides on more aggressive care, we will order paracentesis tomorrow. - Suspected hepatocellular carcinoma. Pt has longstanding history of hemochromatosis and was drinking alcohol regularly up until June of 2016. MRI (08/20/16)----> 2 hypervascular lesions within the dome of the liver and a 3.4 x 3.3cm area of decreased contrast enhancement along the right lobe of the liver inferiorly which is significantly enlarge in size and there was enhancement within this on previously dated imaging studies on 06/20/15. His AFP was elevated to 9.5. He then underwent evaluation with PET/CT on 10/07/16 which noted low grade uptake corresponding to the patients 4.1 x 4cm mass along the inferior aspect of the right lobe of the liver, concerning for malignancy. [facility] was contacted during his last hospitalization in October, but they refused to evaluate the patient until December, which would olive 6 months from his last alcohol intake. We also contacted [facility], who agreed to accept the patient for treatment of HCC +/- transplant evaluation if there is no vascular involvement (there was not) but pt was NOT cleared for hospital to hospital transfer financially. The plan was then for him to follow up with [facility] as outpatient. He was seen in our office on 11/21, at which time an outpatient referral was placed to [facility]. Palliative care following, spoke to brother- Doc Jackman and he has confirmed patient is DNR/DNI and he is meeting with palliative care tomorrow at 1pm. - ESLD/Liver cirrhosis. Hx hemochromatosis and regular ETOH use up until June of 2016. Per GI 11/21 note, patient on Lasix 20mg daily, Lactulose 15mL TID, Nadolol 20mg po daily, Omeprazole 20mg po daily, and Aldactone 50mg po daily per GI note 11/21. Diuretics on hold secondary to RAJENDRA. ? Hepatorenal. MELD Score 22. - Coagulopathy/Thrombocytopenia. PT 15.0, INR 1.3. Plt 112. - Pancytopenia secondary to ESLD. WBC 2.6, 12.6/36.3/ Plt 112. - Large umbilical hernia, small amount of drainage on drsg. He was previously evaluated by , but they did not want to do surgery until his ascites could be better controlled. This has worsened since his last hospitalization. - RAJENDRA with multiple electrolyte abnormalities. Creat is 1.98. Sodium 130. K+ 5.7. ? hepatorenal. Palliative care has been consulted. Will await there evaluation. Diuretics are now on hold. - Hemochromatosis. PLAN: - TY, Low Salt if passes swallow evaluation - Lactulose 30mL po QID - Add Xifaxan 550mg po BID - Cont. Albumin 25 gram q8h - Cont. Protonix 40mg IV daily - Pt with poor prognosis. Palliative care spoke to HCS brother Doc Jackman, who has confirmed patient is DNR/DNI and has agreed to meet with palliative care tomorrow at 1pm. We will hold on further treatment until palliative care meeting and it is determined how aggressive his he would like to be. If he decides on more aggressive treatment , we will order paracentesis tomorrow. - Pt seen and examined by Dr. Roman and myself and this note is written on his behalf (Awilda Palmer) Physician Comments Seen and examined with JUJU, ESLD with possible HCC. Not a candidate for any aggressive therapy. Hospice consulted. (Rubi Roman MD) Awilda Palmer Nov 26, 2016 17:44 Rubi Roman MD Nov 27, 2016 14:13
[2016-11-26] MEDS: LACTULOSE SYRUP 20 GM/30 ML CUP PO SCH ×2 (18:05→22:13)
[2016-11-26] MEDS: RIFAXIMIN 550 MG TAB PO SCH (21:00)
[2016-11-26 21:30] VITALS: BP 123/57; PULSE 79; RESP 16; TEMP 97.6; O2SAT 95
[2016-11-27] MEDS: ALBUMIN HUMAN 25% 25 GM/100 ML BAGP IV SCH ×3 (00:02→17:40)
[2016-11-27 00:40] VITALS: BP 123/57; PULSE 80; RESP 16; TEMP 97.8; O2SAT 98
[2016-11-27 04:30] VITALS: BP 112/51; PULSE 79; RESP 16; TEMP 96.5; O2SAT 98
[2016-11-27 08:00] VITALS: BP 113/55; PULSE 82; RESP 20; TEMP 96.4; O2SAT 98
[2016-11-27] MEDS: RIFAXIMIN 550 MG TAB PO SCH ×3 (08:12→21:00)
[2016-11-27] MEDS: PANTOPRAZOLE SODIUM 40 MG VIAL IV PUSH SCH (08:12)
[2016-11-27] MEDS: LACTULOSE SYRUP 20 GM/30 ML CUP PO SCH ×5 (08:12→21:45)
[2016-11-27] MEDS: SODIUM CHLOR 0.9% 1000 ML INJ 1,000 ML IV SCH (08:13)
--- NOTE | 2016-11-27 08:46 | HHI.PR ---
Subjective Remarks encephalopathic. just answers "yes" Objective Vitals encephalopathic heart reg lung cta abd distended. umbilical hernia noted Vital Signs Date Time Temp Pulse Resp B/P Pulse Ox O2 Delivery O2 Flow Rate FiO2 11/27/16 08:00 96.4 82 20 113/55 98 11/27/16 04:30 96.5 79 16 112/51 98 11/27/16 00:40 97.8 80 16 123/57 98 11/26/16 21:30 97.6 79 16 123/57 95 11/26/16 17:32 96.0 76 18 148/55 95 11/26/16 15:30 70 18 142/76 97 Room Air 11/26/16 13:52 60 18 128/80 99 Room Air 11/26/16 13:52 18 99 Room Air 11/26/16 13:48 98 Room Air 11/26/16 11:21 96.8 69 18 116/57 98 Result Diagram: 11/26/16 1250 11/26/16 1250 Imaging Last Impressions Chest X-Ray 11/26/16 1218 Signed Impressions: Service Date/Time: Saturday, November 26, 2016 12:38 - CONCLUSION: 1. No acute cardiopulmonary findings. Cristopher Macias MD A/P Problem List: (1) Hyperammonemia Status: Acute Plan: - Pt is a 61 y/o male with liver cirrhosis, recurrent ascites, hx of alcohol abuse, hx of hemochromatosis, and liver mass - Pt recently had an extended admission in 10/2016 after he began leaking ascites from his umbilical hernia. - Prior to this admission pt was noted to have a liver mass and elevated AFP 9.5. - He had an outpt PET/CT on 10/07/16 which noted low grade uptake corresponding to the patients 4.1 x 4cm mass along the inferior aspect of the right lobe of the liver, concerning for malignancy. He was seen by Dr. Ventura prior to his recent admission. - Pt was started on Aldactone and IV Albumin and the Aldactone was titrated up slowly to 100mg QID during that admission. His renal function and BP remained stable during this admission. Cytology from his ascetic fluid was negative for malignant cells. - He was noted to have MRSA which grew out of his ascetic fluid but it was unclear if this was related to colonization of the umbilical hernia vs. true MRSA SBP. Pt was treated with Vancomycin IV during admission and was to continue this for 2 weeks as an outpt - He was discharged to SNF. - We had attempted to get him evaluated at [facility] when 6month from last EtOH drink. [facility] agreed to accept patient for treatment of HCC +/- transplant evaluation if there is no vascular involvement but pt was NOT cleared for hospital to hospital transfer. - Pt was seen in the ED on 11/12 with AMS and was noted to have an elevated ammonia level and he was started on Lactulose. He was seen by [facility] as an outpt on 11/21/16 and they added Lasix 20mg daily to his regimen. - He was sent to the ED at [facility] on 11/26/16 with AMS. He is notably confused and unable to answer questions appropriately. His labs are significantly abnormal with neutropenia and acute renal failure. Pts Neutrophils are 0.1, Cr 1.98, and GFR of 35, Na+ 130, and K+ 5.7. Pts abdomen is significantly distended and his umbilical hernia has increased quite significantly since his previous admission. - We will resume Lactulose, request ST evaluation to assess his swallow - Not a good idea to place an NGT as he has hx of esophageal varices. - We will give some IV Albumin - Palliative care/Hospice would be appropriate. Meeting with family later today to decide on goals. - Hold on diuretics for now. If family wants continued aggressive care we will request Paracentesis. - Supportive care - Neutropenic precautions (2) ARF (acute renal failure) Status: Acute Plan: - See above. - This is likely secondary to diuretics. - Hold off on fluids for now - Give some IV albumin - Monitor labs (3) Liver mass Status: Chronic Plan: - See above (4) Ascites Status: Chronic Plan: - See above (5) Liver cirrhosis Status: Chronic Plan: - See above (6) Hemochromatosis Status: Chronic Plan: - See above. Angel Kolb MD Nov 27, 2016 08:46
[2016-11-27 11:31] LABS: BICARBONATE 25.3 MEQ/L (21.0-32.0); POTASSIUM 5.8 MEQ/L (3.5-5.1)
[2016-11-27 12:00] VITALS: BP 114/61; PULSE 76; RESP 20; TEMP 96.1; O2SAT 97
--- NOTE | 2016-11-27 12:28 | PD.CONS ---
Consult Service Palliative Care . Consult Requested By Dr. Kolb . Primary Care Physician Unknown . Reason for Consultation a. To assist with evaluation and management of symptoms including: pain, confusion, debility b. To assist medical decision maker(s) with: better understanding of current medical conditions; weighing benefits/burdens of medical treatment options; making medical treatment decisions. . HPI History of Present Illness Mr. Jackman is a 61 year old male with a past medical history the includes hepatic cirrhosis (likely secondary to a combination of heavy EtOH consumption and hemochromatosis) with recurrent ascites, history of EtOH abuse (quit 06/2016) , h/o esophageal varices, umbilical hernia, SBP, Jones's esophagus, HTN, hepatic encephalopathy, thrombocytopenia, GERD, and a liver mass-suspicious for hepatocellular cancer. He presented to [place] ED on 11/26/2016 with altered mental status after routine lab work was indicative of neutropenia. Patient's ability to provide history was limited secondary to encephalopathy. Of note, the patient was recently hospitalized from 10/26/16 through 11/07/16 for ascites that was spontaneously draining through his umbilical hernia. Cytology from his ascitic fluid was negative for malignant cells. Patient received IV antibiotics for possible SBP. Patient had a PICC line placed and was transferred to [facility] upon discharge. In reviewing documentation from the previous admission, attempts were made to have patient evaluated at a tertiary center but [facility] refused to evaluate the patient until December, when the patient had abstained from EtOH for at least 6 months. The [facility] had agreed to accept the patient for treatment of HCC +/-transplant evaluation if there was no vascular involvement but the patient was not cleared for hospital to hospital transfer. Additional diagnostic findings while in the ED include: * Vital signs: Pulse 69, respirations 18, BP 116/57, oxygen saturation 98% on room air, oral temperature 96.8 * WBC: 2.6, hemoglobin 12.6, hematocrit 36.3, platelets 112, neutrophils# manual 0.1 * Sodium: 1:30, potassium 5.7, chloride 95, carbon dioxide 28.6, glucose 1:30, calcium 10.6, phosphorus 2.6, magnesium 1.8 * BUN: 34, creatinine 1.98, GFR 35 * Lactic acid, 3.4 * Total bilirubin: 4.7, AST 54, ALT 46, alkaline phosphatase 111 * Ammonia: 73 * Total protein: 8.5, albumin 3.0 * Lipase: 245 * PT: 15.0, INR 1.3, APTT 35.9 * Blood culture negative to date * Chest x-ray showed no acute cardiopulmonary findings * Normal EKG The patient's lab work was abnormal with neutropenia and acute renal failure. His abdomen was distended and his umbilical hernia has increased since his previous admission. Patient was afebrile, hemodynamically stable. Gastroenterology was consulted for further evaluation. He was seen [facility] on 11/21/16. He was started on Furosemide 20mg daily in addition to his Spironolactone 50mg, Nadolol 10mg, and Lactulose 15mL TID. [place] [facility] and it appears financial authorization is pending. Records indicate the patient's os recent paracentesis was on 10/22/16, at which time he had 15,300ml removed. On exam the patient was arousable but remains extremely lethargic. He is oriented to self only and does not know why he is hospitalized. Lactulose dose and frequency increased to 30 mL PO 4 times daily, started on Xifaxan 550 mg PO 2 times daily, albumin 25 g every 8 hours and Protonix 40 mg IV daily. Palliative Care was consulted to assist with symptom management and to discuss with the family the benefits and burdens of his current illnesses and the options regarding future care. . . Function/Cognitive Trajectory Patient is a 61 year old male who has declined over the past several months. past medical history the includes hepatic cirrhosis (likely secondary to a combination of heavy EtOH consumption and hemochromatosis) with recurrent ascites, history of EtOH abuse (quit 06/2016), h/o esophageal varices, umbilical hernia, SBP, Jones's esophagus, HTN, hepatic encephalopathy, thrombocytopenia , GERD, and a liver mass-suspicious for hepatocellular cancer. Patient was hospitalized for nearly 2 weeks in Oct, 2016 for ascites that was spontaneously draining through his umbilical hernia. He received IV antibiotics for SBP and was discharged on SNF with a PICC line in place. A plan was in place for the patient to be evaluated at the [facility] outpatient, but the patient was rehospitalized on 11/26/16 with neutropenia, RAJENDRA and hepatic encephalopathy. He has a large umbilical hernia that now encompasses much of his abdomen; + jaundice;+ ascites. Patient remains confused with nonsensical speech; he is extremely deconditioned. His appetite is poor, diet downgraded to pured after speech was consulted for swallow evaluation. . Review of Systems ROS Limitations: Clinical Condition (Limited history from patient secondary encephalopathy and letahrgy), Altered Mental Status Constitutional: COMPLAINS OF: Fatigue, Change in appetite (decreased appetite) , Generalized weakness Endocrine: DENIES: Polydipsia, Polyuria, Polyphagia Ears, nose, mouth, throat: DENIES: Epistaxis Respiratory: DENIES: Shortness of breath Gastrointestinal: COMPLAINS OF: Abdominal pain, DENIES: Bloody stools, Vomiting blood Musculoskeletal: COMPLAINS OF: Muscle aches Hematologic/Lymphatics: COMPLAINS OF: Bruising Psychiatric: COMPLAINS OF: Confusion Past Family Social History Coded Allergies: *MDRO Multi-Drug Resistant Organism (Verified Adverse Reaction, Unknown, ) MRSA Peritoneal Fluid 11/01/16 Past Medical History Suspected hepatocellular carcinoma Hemochromatosis Liver cirrhosis Hx regular ETOH abuse, quit last June of 2016 Jones's Esophagus Recurrent ascites Esophageal varices Umbical hernia SBP HTN Hepatic encephalopathy Thrombocytopenia GERD . Past Surgical History Umbilical hernia repair 2 several years ago in [place] Liver biopsy regarding hemochromatosis Esophageal varices banding . Reported Medications Metformin (Metformin HCl) 500 Mg Tab 500 Mg PO BIDPC With meals Omeprazole 20 Mg Tab 20 Mg PO DAILY Nadolol 20 Mg Tab 20 Mg PO DAILY . Current Medications Medications (Trade) Dose Ordered Sig/Gian Route Start Time Stop Time Status Last Admin Lactulose 30 ml 30 ml QID PO 11/26/16 18:00 11/27/16 10:30 (NS 1000 ml Inj) 1,000 ml @ 50 mls/hr Q20H IV 11/26/16 15:15 11/27/16 08:13 (Protonix Inj) 40 mg DAILY IV PUSH 11/26/16 15:15 11/27/16 08:12 (Albumin 25% Inj) 25 gm Q8H IV 11/26/16 16:00 11/27/16 08:14 (Xifaxan) 550 mg BID PO 11/26/16 21:00 11/27/16 10:30 . Family History Since mother at the age of 74 from complications related to COPD; his father at the age of 77 from alcoholic cirrhosis. . Substance Use Tobacco: No history of tobacco use Alcohol: Previous heavy EtOH consumption; patient quit drinking alcohol in 2016. Prescription med abuse: Patient denies Illicits: Patient denies . Psychosocial History Patient is single male who has no children. His brother is his next of kin and lives locally. The patient previously lived in [place], [place] in [place]. He moved to [place] in March, to be closer to family. 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 . Spiritual/Cultural Factors Oriental [employer] anton . Living Will: Copy in medical record Health Care Surrogate: Copy in medical record Date completed: 10/29/2016 . Health Care Surrogate(s): Patient's brother, Doc Jackman, is the designated health care surrogate decision maker. His niece, Abeba Jackman, is listed as the alternate health care surrogate. . Documented care wishes: The patient completed a living will on November 03, 2016 . Today's verbally stated goals: Patient does not communicate goals due to ongoing encephalopathy and lethargy. . Family/friends goals: Pending family meeting 11/28/2016 . Ethical and Legal Issues No known ethical or legal issues at this time. . Physical Exam Vital Signs Date Time Temp Pulse Resp B/P Pulse Ox O2 Delivery O2 Flow Rate FiO2 11/27/16 08:00 96.4 82 20 113/55 98 11/27/16 04:30 96.5 79 16 112/51 98 11/27/16 00:40 97.8 80 16 123/57 98 11/26/16 21:30 97.6 79 16 123/57 95 11/26/16 17:32 96.0 76 18 148/55 95 11/26/16 15:30 70 18 142/76 97 Room Air 11/26/16 13:52 60 18 128/80 99 Room Air 11/26/16 13:52 18 99 Room Air 11/26/16 13:48 98 Room Air . Exam CONSTITUTIONAL/GENERAL: This is a chronically ill appearing male patient who is confused but in no apparent distress. TUBES/LINES/DRAINS: SKIN: Ecchymoses on upper extremities. + Jaundice. Skin temperature appropriate. Not diaphoretic. HEAD: Atraumatic. Normocephalic. EYES: Pupils equal and round and reactive. No injection or drainage. Fundi not examined. ENT: Hearing grossly normal. Nose without bleeding or purulent drainage. NECK: Trachea midline. CARDIOVASCULAR: Regular rate and rhythm without murmurs, gallops, or rubs. RESPIRATORY/CHEST: Symmetric, unlabored respirations. Clear to auscultation. Breath sounds equal bilaterally. No wheezes, rales, or rhonchi. GASTROINTESTINAL: Abdomen is distended, firm with large umbilical hernia. + Ascites GENITOURINARY: Without palpable bladder distension. MUSCULOSKELETAL: Extremities without clubbing, cyanosis, or edema. LYMPHATICS: No palpable cervical or supraclavicular adenopathy. NEUROLOGICAL: Lethargic. Confused. Does not answer questions appropriately. PSYCHIATRIC: No obvious anxiety/depression. no apparent hallucinations or other psychotic thought process. . Diagnostic Tests Laboratory Laboratory Tests Test 11/26/16 11/26/16 11/26/16 11/27/16 12:50 13:45 16:35 09:53 White Blood Count 2.6 TH/MM3 (4.0-11.0) Red Blood Count 3.80 MIL/MM3 (4.50-5.90) Hemoglobin 12.6 GM/DL (13.0-17.0) Hematocrit 36.3 % (39.0-51.0) Mean Corpuscular Volume 95.6 FL (80.0-100.0) Mean Corpuscular Hemoglobin 33.1 PG (27.0-34.0) Mean Corpuscular Hemoglobin 34.6 % Concent (32.0-36.0) Red Cell Distribution Width 16.2 % (11.6-17.2) Platelet Count 112 TH/MM3 (150-450) Mean Platelet Volume 8.9 FL (7.0-11.0) Neutrophils (%) (Auto) % (16.0-70.0) Lymphocytes (%) (Auto) % (9.0-44.0) Monocytes (%) (Auto) % (0.0-8.0) Eosinophils (%) (Auto) % (0.0-4.0) Basophils (%) (Auto) % (0.0-2.0) Neutrophils # (Auto) TH/MM3 (1.8-7.7) Lymphocytes # (Auto) TH/MM3 (1.0-4.8) Monocytes # (Auto) TH/MM3 (0-0.9) Eosinophils # (Auto) TH/MM3 (0-0.4) Basophils # (Auto) TH/MM3 (0-0.2) CBC Comment AUTO DIFF Differential Total Cells 100 Counted Neutrophils % (Manual) 3 % (16-70) Band Neutrophils % 1 % (0-6) Lymphocytes % 25 % (9-44) Monocytes % 47 % (0-8) Eosinophils % 12 % (0-4) Basophils % 10 % (0-2) Neutrophils # (Manual) 0.1 TH/MM3 (1.8-7.7) Promyelocytes 1 % (0-0) Differential Comment FINAL DIFF MANUAL Blastocytes 1 % (0-0) Platelet Estimate LOW (NORMAL) Platelet Morphology Comment ENLARGED (NORMAL) Tear Drop Cells 1+ (NORMAL) Prothrombin Time 15.0 SEC (9.8-11.6) Prothromb Time International 1.3 RATIO Ratio Activated Partial 35.9 SEC Thromboplast Time (24.3-30.1) Sodium Level 130 MEQ/L 132 MEQ/L (136-145) (136-145) Potassium Level 5.7 MEQ/L 5.8 MEQ/L (3.5-5.1) (3.5-5.1) Chloride Level 95 MEQ/L 98 MEQ/L (98-107) (98-107) Carbon Dioxide Level 28.6 MEQ/L 25.3 MEQ/L (21.0-32.0) (21.0-32.0) Anion Gap 6 MEQ/L (5-15) 9 MEQ/L (5-15) Blood Urea Nitrogen 34 MG/DL (7-18) 37 MG/DL (7-18) Creatinine 1.98 MG/DL 1.99 MG/DL (0.60-1.30) (0.60-1.30) Estimat Glomerular Filtration 35 ML/MIN (>89) 34 ML/MIN (>89) Rate Random Glucose 130 MG/DL 90 MG/DL (74-106) (74-106) Lactic Acid Level 3.4 mmol/L 3.7 mmol/L (0.4-2.0) (0.4-2.0) Calcium Level 10.6 MG/DL 11.3 MG/DL (8.5-10.1) (8.5-10.1) Phosphorus Level 2.6 MG/DL (2.5-4.9) Magnesium Level 1.8 MG/DL (1.5-2.5) Total Bilirubin 4.7 MG/DL (0.2-1.0) Aspartate Amino Transf 54 U/L (15-37) (AST/SGOT) Alanine Aminotransferase 46 U/L (12-78) (ALT/SGPT) Alkaline Phosphatase 111 U/L (45-117) Total Protein 8.5 GM/DL (6.4-8.2) Albumin 3.0 GM/DL (3.4-5.0) Lipase 245 U/L (73-393) Ammonia 73 MCMOL/L (11-32) . Result Diagram: 11/26/16 1250 11/27/16 0953 Microbiology Microbiology Date/Time Procedure Status Source Growth 11/26/16 12:50 Aerobic Blood Culture - Preliminary Resulted Blood Peripheral NO GROWTH IN 1 DAY 11/26/16 12:50 Anaerobic Blood Culture - Preliminary Resulted Blood Peripheral NO GROWTH IN 1 DAY 11/26/16 12:55 Aerobic Blood Culture - Preliminary Resulted Blood Peripheral NO GROWTH IN 1 DAY 11/26/16 12:55 Anaerobic Blood Culture - Preliminary Resulted Blood Peripheral NO GROWTH IN 1 DAY . . Imaging Last 72 hours Impressions Chest X-Ray 11/26/16 1218 Signed Impressions: Service Date/Time: Saturday, November 26, 2016 12:38 - CONCLUSION: 1. No acute cardiopulmonary findings. Cristopher Macias MD . Patient/Family Conference Present at Family Conference: Spoke with patient's family members via telephone, family meeting planned for . Family Conference Location: Bedside, Telephone Issues Discussed: * Palliative care role, purpose, approach * Patients general health, functional status, and cognitive changes in the months leading up to the current hospitalization * Patient/family understanding of the current medical problems * Patient/family understanding of prognosis * Patients goals of care as best understood from advance directives and/or conversations and/or values * Current medical treatment options and benefits/burdens of those options * Questions answered to the best of my ability * Palliative care contact information provided . Assessment and Plan Disease Oriented Problem List: (1) Chronic GERD (2) Hemochromatosis (3) Liver cirrhosis (4) ARF (acute renal failure) (5) Umbilical hernia (6) Ascites of liver (7) Coagulopathy (8) Cytopenia (9) Hepatic encephalopathy (10) Liver mass Symptom Scale: (1) Debility (2) Pain (3) Confusion Pertinent Non-Medical Issues Psychosocial: Patient is single male who has no children. His brother is his next of kin and lives locally. The patient previously lived in [facility] , [place] in [place]. He moved to [place] in March, to be closer to family. 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 Spiritual: [employer] an[place] Legal:Patient's brother, Doc Jackman, is the designated health care surrogate decision maker. His niece, Abeba Jackman, is listed as the alternate health care surrogate. Ethical issues impacting care: No known ethical issues impacting care at this time. . Important Contacts Doc Jackman, brother: [phone] . Prognosis Mr. Jackman is a 61 year old male with a past medical history the includes hepatic cirrhosis (likely secondary to a combination of heavy EtOH consumption and hemochromatosis) with recurrent ascites, history of EtOH abuse (quit 06/2016) , h/o esophageal varices, umbilical hernia, SBP, Jones's esophagus, HTN, hepatic encephalopathy, thrombocytopenia, GERD, and a liver mass-suspicious for hepatocellular cancer. Multiple recent hospitalizations secondary to hepatic encephalopathy, recurrent ascites requiring frequent paracentesis. Patient was treated with antibiotics during his last hospitalization in Oct, 2016 for suspected SBP. At that time, attempts were made at both [facility] and [place] to have patient evaluated at a tertiary. A plan was in place for the patient to be evaluated outpatient at [place] but secondary to his ongoing decline it is unlikely this will take place. Overall prognosis is poor. Patient is hospice appropriate if his goals become comfort focused. . Code Status: No Code Plan * NO CODE * Decision-making: Patient's brother, Doc Jackman, is the designated health care surrogate decision maker. His niece, Abeba Jackman, is listed as the alternate health care surrogate. * Goals: Goals remain aggressive up to the point of cardiopulmonary resuscitation pending family meeting scheduled for 11/28/2016. * Family canceled meeting with palliative care today 11/27/16; meeting rescheduled for tomorrow 11/28/16 at 1 PM. * Symptom managementconfusion: remains confused secondary to hepatic encephalopathy, unable to provide much history. When asked about symptoms the patient responds with 12 word answers, responses are often nonsensical. Lactulose dose and frequency was increased to 30ml PO 4 times daily; patient was previously receiving 15ml PO 3 times daily. No further recommendations at this time * Symptom managementpain: when ask if he is in pain the patient answers "yes" but he is unable to describe or rate the pain. He is noted to grimace with light abdominal palpation. Possible causes of pain would include abdominal distention, large umbilical hernia, bedbound status, poor nutritional status, invasiveness lines etc. Appropriate to consider initiating PRN medication for pain at this time. * Patient is extremely deconditioned with poor nutritional intake speech therapy was consulted for swallow evaluation. Recommendations were made for a pured diet with thin liquids. * Patient discussed with , Louisa CRUZ and patient's nurse. * Palliative care contact patient provided to the patient's family. * Palliative care will continue to follow this patient throughout his hospitalization to establish trust, assist with symptom management and clarification of medical treatment goals. Thank you for the opportunity to participate in the care of Mr. Jackman. Attestation To help prompt me to consider important information that might be impacting today's encounter and assessment, information from prior notes written by myself or my colleagues may have been "brought forward" into today's note. My signature on this note, however, is an attestation that I personally performed the exam, history, and/or decision-making noted today, and, unless otherwise indicated, the interactions with patient, family, and staff as well as the review of records all occurred today. I also attest that the listed assessment and stated plan reflect my best clinical judgment today based on the combination of historical information, prior notes, and today's exam/ interactions. When time spent is documented, it refers only to time spent today by the signer, or if indicated, combined time spent today by collaborating physician/nurse practitioner. . Rashida Jean Nov 27, 2016 12:28
--- NOTE | 2016-11-27 12:36 | HHI.GIFU ---
Subjective Remarks Pt lethargic, arouses, but only says "yes" or "i'm good," not appropriately to the questions asked. Family meeting today at 1pm with palliative care. (Awilda Palmer) Objective Vitals I&O Vital Signs Date Time Temp Pulse Resp B/P Pulse Ox O2 Delivery O2 Flow Rate FiO2 11/27/16 08:00 96.4 82 20 113/55 98 11/27/16 04:30 96.5 79 16 112/51 98 11/27/16 00:40 97.8 80 16 123/57 98 11/26/16 21:30 97.6 79 16 123/57 95 11/26/16 17:32 96.0 76 18 148/55 95 11/26/16 15:30 70 18 142/76 97 Room Air 11/26/16 13:52 60 18 128/80 99 Room Air 11/26/16 13:52 18 99 Room Air 11/26/16 13:48 98 Room Air Laboratory Laboratory Tests Test 11/26/16 11/26/16 11/26/16 11/27/16 12:50 13:45 16:35 09:53 White Blood Count 2.6 Red Blood Count 3.80 Hemoglobin 12.6 Hematocrit 36.3 Mean Corpuscular Volume 95.6 Mean Corpuscular Hemoglobin 33.1 Mean Corpuscular Hemoglobin 34.6 Concent Red Cell Distribution Width 16.2 Platelet Count 112 Mean Platelet Volume 8.9 Neutrophils (%) (Auto) Lymphocytes (%) (Auto) Monocytes (%) (Auto) Eosinophils (%) (Auto) Basophils (%) (Auto) Neutrophils # (Auto) Lymphocytes # (Auto) Monocytes # (Auto) Eosinophils # (Auto) Basophils # (Auto) CBC Comment AUTO DIFF Differential Total Cells 100 Counted Neutrophils % (Manual) 3 Band Neutrophils % 1 Lymphocytes % 25 Monocytes % 47 Eosinophils % 12 Basophils % 10 Neutrophils # (Manual) 0.1 Promyelocytes 1 Differential Comment FINAL DIFF MANUAL Blastocytes 1 Platelet Estimate LOW Platelet Morphology Comment ENLARGED Tear Drop Cells 1+ Prothrombin Time 15.0 Prothromb Time International 1.3 Ratio Activated Partial 35.9 Thromboplast Time Sodium Level 130 132 Potassium Level 5.7 5.8 Chloride Level 95 98 Carbon Dioxide Level 28.6 25.3 Anion Gap 6 9 Blood Urea Nitrogen 34 37 Creatinine 1.98 1.99 Estimat Glomerular Filtration 35 34 Rate Random Glucose 130 90 Lactic Acid Level 3.4 3.7 Calcium Level 10.6 11.3 Phosphorus Level 2.6 Magnesium Level 1.8 Total Bilirubin 4.7 Aspartate Amino Transf 54 (AST/SGOT) Alanine Aminotransferase 46 (ALT/SGPT) Alkaline Phosphatase 111 Total Protein 8.5 Albumin 3.0 Lipase 245 Ammonia 73 Date/Time Procedure Status Source Growth 11/26/16 12:55 Aerobic Blood Culture - Preliminary Resulted Blood Peripheral NO GROWTH IN 1 DAY 11/26/16 12:55 Anaerobic Blood Culture - Preliminary Resulted Blood Peripheral NO GROWTH IN 1 DAY Imaging Last Impressions Chest X-Ray 11/26/16 1218 Signed Impressions: Service Date/Time: Thursday, November 26, 2016 12:38 - CONCLUSION: 1. No acute cardiopulmonary findings. Cristopher Macias MD Physical Exam HEENT: Normocephalic; atraumatic; + jaundice. CHEST: CTA CARDIAC: RRR ABDOMEN: Semifirm, large amount ascites noted. Large umbilical hernia, worsened, now encompassing much of his abdomen; hepatosplenomegaly; bowel sounds are present in all four quadrants. EXTREMITIES: No edema BLE SKIN: Normal; no rash; + jaundice. SHOW CARD LETTERER: Lethargic, confused (Awilda Palmer) Assessment and Plan Plan ASSESSMENT: - Severe hepatic encephalopathy. On Lactulose 15mL po TID at SNF. He presents with AMS, lethargy. Very lethargic and confused. Ammonia 73 yesterday. Lactulose 30mL po QID and Xifaxan 550mg po BID. - Recurrent ascites with recent MRSA SBP (resistent to Levaquin). S/P 2 weeks of IV Vanco. Albumin 25mg IVPB q8h. Diuretics being held secondary to ARF/Electrolyte abnormalities. Awaiting family meeting with palliative care. If his brother wants to pursue aggressive care, we will order paracentesis at that time. - Suspected hepatocellular carcinoma. Pt has longstanding history of hemochromatosis and was drinking alcohol regularly up until June of 2016. MRI (08/20/16)----> 2 hypervascular lesions within the dome of the liver and a 3.4 x 3.3cm area of decreased contrast enhancement along the right lobe of the liver inferiorly which is significantly enlarge in size and there was enhancement within this on previously dated imaging studies on 06/20/15. His AFP was elevated to 9.5. He then underwent evaluation with PET/CT on 10/07/16 which noted low grade uptake corresponding to the patients 4.1 x 4cm mass along the inferior aspect of the right lobe of the liver, concerning for malignancy. [facility] was contacted during his last hospitalization in October, but they refused to evaluate the patient until December, which would oliev 6 months from his last alcohol intake. We also contacted [facility], who agreed to accept the patient for treatment of HCC +/- transplant evaluation if there is no vascular involvement (there was not) but pt was NOT cleared for hospital to hospital transfer financially. The plan was then for him to follow up with [facility] as outpatient. He was seen in our office on 11/21, at which time an outpatient referral was placed to [facility]. Palliative care following, spoke to brother- Doc Jackman and he has confirmed patient is DNR/DNI and he is meeting with palliative care tomorrow at 1pm. - ESLD/Liver cirrhosis. Hx hemochromatosis and regular ETOH use up until June of 2016. On albumin. Diuretics on hold secondary to ARF, ? Hepatorenal. MELD Score 22. He has a poor prognosis. Palliative care meeting with brother to determine goals of care. - Coagulopathy/Thrombocytopenia. - Pancytopenia secondary to ESLD. - Large umbilical hernia, small amount of drainage on drsg. He was previously evaluated by , but they did not want to do surgery until his ascites could be better controlled. This has worsened since his last hospitalization and now seems to have a ventral and umbilical hernia, encompassing much of his abdomen. - RAJENDRA with multiple electrolyte abnormalities. Creat is 1.99. Sodium 130. K+ 5.8. ? hepatorenal. Palliative care meeting with family to discuss goals of care - Hemochromatosis. PLAN: - Puree diet with thin liquids (low salt) per ST recommendations - Lactulose 30mL po QID - Xifaxan 550mg po BID - Albumin 25 gram q8h - Protonix 40mg IV daily - Pt with poor prognosis. Comfort measures would be appropriate at this time. Palliative care meeting with family to discuss goals of care. If he wants aggressive treatment, will order paracentesis at that time. - Pt seen and examined by Dr. Roman and myself and this note is written on his behalf (Awilda Palmer) Physician Comments Seen and examined, still encephalopathic and icteric. Hospice consulted. Not much to add from gi standpoint. will sign off. Thank you (Rubi Roman MD) Awilda Palmer Nov 27, 2016 12:36 Rubi Roman MD Nov 27, 2016 14:46
--- NOTE | 2016-11-27 15:15 | EKG ---
Date Performed: 11/26/2016 Time Performed: 13:57:47 PTAGE: 61 years EKG: Sinus rhythm WITH SINUS ARRHYTHMIA NORMAL ECG Compared to prior tracing no significant change PREVIOUS TRACING : 09/08/2016 13.19 DOCTOR: Lorenzo Ocampo Interpretating Date/Time 11/27/2016 15:15:09
[2016-11-27 16:00] VITALS: BP 114/54; PULSE 70; RESP 20; TEMP 96; O2SAT 98
[2016-11-27 20:00] VITALS: BP 127/60; PULSE 73; RESP 16; TEMP 97.2; O2SAT 100
[2016-11-28] VITALS: BP 114/56; PULSE 77; RESP 18; TEMP 96.4; O2SAT 100
[2016-11-28] MEDS: ALBUMIN HUMAN 25% 25 GM/100 ML BAGP IV SCH ×3 (01:02→16:15)
[2016-11-28 04:00] VITALS: BP 111/54; PULSE 71; RESP 18; TEMP 95.7; O2SAT 99
[2016-11-28] MEDS: LACTULOSE SYRUP 20 GM/30 ML CUP PO SCH ×3 (07:46→16:13)
[2016-11-28] MEDS: PANTOPRAZOLE SODIUM 40 MG VIAL IV PUSH SCH (07:46)
[2016-11-28] MEDS: RIFAXIMIN 550 MG TAB PO SCH (07:47)
[2016-11-28] MEDS: SODIUM CHLOR 0.9% 1000 ML INJ 1,000 ML IV SCH (07:49)
[2016-11-28 08:00] VITALS: BP 138/66; PULSE 80; RESP 18; TEMP 96; O2SAT 97
--- NOTE | 2016-11-28 09:08 | HHI.PR ---
Subjective Remarks encephalopathic. not taking meds Objective Vitals encephalopathic answers "yes" Vital Signs Date Time Temp Pulse Resp B/P Pulse Ox O2 Delivery O2 Flow Rate FiO2 11/28/16 08:00 96.0 80 18 138/66 97 11/28/16 04:00 95.7 71 18 111/54 99 11/28/16 00:00 96.4 77 18 114/56 100 11/27/16 20:00 97.2 73 16 127/60 100 11/27/16 16:00 96.0 70 20 114/54 98 11/27/16 12:00 96.1 76 20 114/61 97 11/27/16 11/27/16 11/28/16 15:00 23:00 07:00 Intake Total 0 ml Balance 0 ml Intake Oral 0 ml # Voids 1 3 2 Result Diagram: 11/26/16 1250 11/27/16 0953 Imaging Last Impressions Chest X-Ray 11/26/16 1218 Signed Impressions: Service Date/Time: Saturday, November 26, 2016 12:38 - CONCLUSION: 1. No acute cardiopulmonary findings. Cristopher Macias MD A/P Problem List: (1) Hyperammonemia Status: Acute Plan: - Pt is a 61 y/o male with liver cirrhosis, recurrent ascites, hx of alcohol abuse, hx of hemochromatosis, and liver mass - Pt recently had an extended admission in 10/2016 after he began leaking ascites from his umbilical hernia. - Prior to this admission pt was noted to have a liver mass and elevated AFP 9.5. - He had an outpt PET/CT on 10/07/16 which noted low grade uptake corresponding to the patients 4.1 x 4cm mass along the inferior aspect of the right lobe of the liver, concerning for malignancy. He was seen by Dr. Ventura prior to his recent admission. - Pt was started on Aldactone and IV Albumin and the Aldactone was titrated up slowly to 100mg QID during that admission. His renal function and BP remained stable during this admission. Cytology from his ascetic fluid was negative for malignant cells. - He was noted to have MRSA which grew out of his ascetic fluid but it was unclear if this was related to colonization of the umbilical hernia vs. true MRSA SBP. Pt was treated with Vancomycin IV during admission and was to continue this for 2 weeks as an outpt - He was discharged to SNF. - We had attempted to get him evaluated at tertiary centers during that admission but [facility] refused to evaluate pt until December when 6month from last EtOH drink. [facility] agreed to accept patient for treatment of HCC +/- transplant evaluation if there is no vascular involvement but pt was NOT cleared for hospital to hospital transfer. - Pt was seen in the ED on 11/12 with AMS and was noted to have an elevated ammonia level and he was started on Lactulose. He was seen by [facility] as an outpt on 11/21/16 and they added Lasix 20mg daily to his regimen. - He was sent to the ED at [facility] on 11/26/16 with AMS. He is notably confused and unable to answer questions appropriately. His labs are significantly abnormal with neutropenia and acute renal failure. Pts Neutrophils are 0.1, Cr 1.98, and GFR of 35, Na+ 130, and K+ 5.7. Pts abdomen is significantly distended and his umbilical hernia has increased quite significantly since his previous admission. - We will resume Lactulose, request ST evaluation to assess his swallow - Not a good idea to place an NGT as he has hx of esophageal varices. - We will give some IV Albumin - Palliative care/Hospice would be appropriate. Meeting with family later today to decide on goals. family postponed meeting yesterday - I spoke to brother Doc yesterday and gave him update. - Hold on diuretics for now. If family wants continued aggressive care we will request Paracentesis. - Supportive care - Neutropenic precautions (2) ARF (acute renal failure) Status: Acute Plan: - See above. - This is likely secondary to diuretics. - Hold off on fluids for now - Give some IV albumin - Monitor labs (3) Liver mass Status: Chronic Plan: - See above (4) Ascites Status: Chronic Plan: - See above (5) Liver cirrhosis Status: Chronic Plan: - See above (6) Hemochromatosis Status: Chronic Plan: - See above. Angel Kolb MD Nov 28, 2016 09:08
[2016-11-28 13:15] VITALS: BP 144/66; PULSE 77; RESP 16; TEMP 97.6; O2SAT 96
--- NOTE | 2016-11-28 16:43 | HHI.HCPN ---
Reason for visit a. To assist with evaluation and management of symptoms including: pain, encephalopathy, debility, dyspnea b. To assist medical decision maker(s) with: better understanding of current medical conditions; weighing benefits/burdens of medical treatment options; making medical treatment decisions. . Subjective/Interval History Mr. Jackman is a 61 year old male with a past medical history the includes hepatic cirrhosis (likely secondary to a combination of heavy EtOH consumption and hemochromatosis) with recurrent ascites, history of EtOH abuse (quit 06/2016) , h/o esophageal varices, umbilical hernia, SBP, Jones's esophagus, HTN, hepatic encephalopathy, thrombocytopenia, GERD, and a liver mass-suspicious for hepatocellular cancer. He presented to [place] ED on 11/26/2016 with altered mental status after routine lab work was indicative of neutropenia. Patient's ability to provide history was limited secondary to encephalopathy. Of note, the patient was recently hospitalized from 10/26/16 through 11/07/16 for ascites that was spontaneously draining through his umbilical hernia. Cytology from his ascitic fluid was negative for malignant cells. Patient received IV antibiotics for possible SBP. In reviewing documentation from the previous admission, attempts were made to have patient evaluated at a tertiary center but [facility] patient until December, when the patient had abstained from EtOH for at least [address] [facility] had agreed to accept the patient for treatment of HCC +/-transplant evaluation if there was no vascular involvement but the patient was not cleared for hospital to hospital transfer. Kidney functioning remains impaired; creatinine 1.99, sodium 132, potassium 5.8 Patient response to simple questions with 12 word answers stating "Yes" or "Okay" or "Right"; responses are nonsensical at times. He remains encephalopathic-unable to remember his niece's name. Patient denies pain on exam but is observed grimacing with light abdominal palpation. Mild shortness of breath is noted at times with conversation secondary to abdominal distention and ascites. Family history sided to forego further diagnostic testing and/or aggressive medical interventions. They have decided to transition to hospice services at this time, focusing on symptom management and EOL care. . . Advance Directives Living Will: Copy in medical record Health Care Surrogate: Copy in medical record Advance Directive Specifics Date completed: 10/29/2016 . Health Care Surrogate(s): Patient's brother, Doc Jackman, is the designated health care surrogate decision maker. His niece, Abeba Jackman, is listed as the alternate health care surrogate. . Documented care wishes: The patient completed a living will on November 03, 2016 . Significant change in goals: Hospice consult pending . Objective Vital Signs Date Time Temp Pulse Resp B/P Pulse Ox O2 Delivery O2 Flow Rate FiO2 11/28/16 13:15 97.6 77 16 144/66 96 11/28/16 08:00 96.0 80 18 138/66 97 11/28/16 04:00 95.7 71 18 111/54 99 11/28/16 00:00 96.4 77 18 114/56 100 11/27/16 20:00 97.2 73 16 127/60 100 Intake & Output 11/28/16 11/28/16 07:00 19:00 Intake Total 0 ml Balance 0 ml Intake Oral 0 ml # Voids 4 . Physical Exam CONSTITUTIONAL/GENERAL: This is a chronically ill appearing male patient who is confused but in no acute distress TUBES/LINES/DRAINS: PIV x 3 SKIN: Ecchymoses on upper extremities. Jaundice. HEAD: Atraumatic. Normocephalic. EYES: Pupils equal and round and reactive. + Icterus. No injection or drainage. Fundi not examined. ENT: Hearing grossly normal. Nose without bleeding or purulent drainage. NECK: Trachea midline. CARDIOVASCULAR: Regular rate and rhythm without murmurs, gallops, or rubs. RESPIRATORY/CHEST: Respirations intermittently labored with conversation. Clear to auscultation. Breath sounds equal bilaterally. No wheezes, rales, or rhonchi. GASTROINTESTINAL: Abdomen is distended, firm with ascites, tender to palpation. Large umbilical hernia now encompassing much patient's abdomen; hepatosplenomegaly. GENITOURINARY: Without palpable bladder distension. MUSCULOSKELETAL: Extremities without clubbing, cyanosis, or edema. LYMPHATICS: No palpable cervical or supraclavicular adenopathy. NEUROLOGICAL: Lethargic. Confused. Does not answer questions appropriately. PSYCHIATRIC: No obvious anxiety/depression. no apparent hallucinations or other psychotic thought process. . Diagnostic Tests Laboratory Laboratory Tests Test 11/26/16 11/26/16 11/26/16 11/27/16 12:50 13:45 16:35 09:53 White Blood Count 2.6 TH/MM3 (4.0-11.0) Red Blood Count 3.80 MIL/MM3 (4.50-5.90) Hemoglobin 12.6 GM/DL (13.0-17.0) Hematocrit 36.3 % (39.0-51.0) Mean Corpuscular Volume 95.6 FL (80.0-100.0) Mean Corpuscular Hemoglobin 33.1 PG (27.0-34.0) Mean Corpuscular Hemoglobin 34.6 % Concent (32.0-36.0) Red Cell Distribution Width 16.2 % (11.6-17.2) Platelet Count 112 TH/MM3 (150-450) Mean Platelet Volume 8.9 FL (7.0-11.0) Neutrophils (%) (Auto) % (16.0-70.0) Lymphocytes (%) (Auto) % (9.0-44.0) Monocytes (%) (Auto) % (0.0-8.0) Eosinophils (%) (Auto) % (0.0-4.0) Basophils (%) (Auto) % (0.0-2.0) Neutrophils # (Auto) TH/MM3 (1.8-7.7) Lymphocytes # (Auto) TH/MM3 (1.0-4.8) Monocytes # (Auto) TH/MM3 (0-0.9) Eosinophils # (Auto) TH/MM3 (0-0.4) Basophils # (Auto) TH/MM3 (0-0.2) CBC Comment AUTO DIFF Differential Total Cells 100 Counted Neutrophils % (Manual) 3 % (16-70) Band Neutrophils % 1 % (0-6) Lymphocytes % 25 % (9-44) Monocytes % 47 % (0-8) Eosinophils % 12 % (0-4) Basophils % 10 % (0-2) Neutrophils # (Manual) 0.1 TH/MM3 (1.8-7.7) Promyelocytes 1 % (0-0) Differential Comment FINAL DIFF MANUAL Blastocytes 1 % (0-0) Platelet Estimate LOW (NORMAL) Platelet Morphology Comment ENLARGED (NORMAL) Tear Drop Cells 1+ (NORMAL) Prothrombin Time 15.0 SEC (9.8-11.6) Prothromb Time International 1.3 RATIO Ratio Activated Partial 35.9 SEC Thromboplast Time (24.3-30.1) Sodium Level 130 MEQ/L 132 MEQ/L (136-145) (136-145) Potassium Level 5.7 MEQ/L 5.8 MEQ/L (3.5-5.1) (3.5-5.1) Chloride Level 95 MEQ/L 98 MEQ/L (98-107) (98-107) Carbon Dioxide Level 28.6 MEQ/L 25.3 MEQ/L (21.0-32.0) (21.0-32.0) Anion Gap 6 MEQ/L (5-15) 9 MEQ/L (5-15) Blood Urea Nitrogen 34 MG/DL (7-18) 37 MG/DL (7-18) Creatinine 1.98 MG/DL 1.99 MG/DL (0.60-1.30) (0.60-1.30) Estimat Glomerular Filtration 35 ML/MIN (>89) 34 ML/MIN (>89) Rate Random Glucose 130 MG/DL 90 MG/DL (74-106) (74-106) Lactic Acid Level 3.4 mmol/L 3.7 mmol/L (0.4-2.0) (0.4-2.0) Calcium Level 10.6 MG/DL 11.3 MG/DL (8.5-10.1) (8.5-10.1) Phosphorus Level 2.6 MG/DL (2.5-4.9) Magnesium Level 1.8 MG/DL (1.5-2.5) Total Bilirubin 4.7 MG/DL (0.2-1.0) Aspartate Amino Transf 54 U/L (15-37) (AST/SGOT) Alanine Aminotransferase 46 U/L (12-78) (ALT/SGPT) Alkaline Phosphatase 111 U/L (45-117) Total Protein 8.5 GM/DL (6.4-8.2) Albumin 3.0 GM/DL (3.4-5.0) Lipase 245 U/L (73-393) Ammonia 73 MCMOL/L (11-32) . Result Diagram: 11/26/16 1250 11/27/16 0953 Microbiology Microbiology Date/Time Procedure Status Source Growth 11/26/16 12:50 Aerobic Blood Culture - Preliminary Resulted Blood Peripheral NO GROWTH IN 2 DAYS 11/26/16 12:50 Anaerobic Blood Culture - Preliminary Resulted Blood Peripheral NO GROWTH IN 2 DAYS 11/26/16 12:55 Aerobic Blood Culture - Preliminary Resulted Blood Peripheral NO GROWTH IN 2 DAYS 11/26/16 12:55 Anaerobic Blood Culture - Preliminary Resulted Blood Peripheral NO GROWTH IN 2 DAYS Microbiology Date/Time Procedure Status Source Growth 11/26/16 12:50 Aerobic Blood Culture - Preliminary Resulted Blood Peripheral NO GROWTH IN 2 DAYS 11/26/16 12:50 Anaerobic Blood Culture - Preliminary Resulted Blood Peripheral NO GROWTH IN 2 DAYS 11/26/16 12:55 Aerobic Blood Culture - Preliminary Resulted Blood Peripheral NO GROWTH IN 2 DAYS 11/26/16 12:55 Anaerobic Blood Culture - Preliminary Resulted Blood Peripheral NO GROWTH IN 2 DAYS . Imaging Last 72 hours Impressions Chest X-Ray 11/26/16 1218 Signed Impressions: Service Date/Time: Thursday, November 26, 2016 12:38 - CONCLUSION: 1. No acute cardiopulmonary findings. Cristopher Macias MD . Assessment and Plan Disease Oriented Problem List: (1) Chronic GERD (2) Hemochromatosis (3) Liver cirrhosis (4) ARF (acute renal failure) (5) Umbilical hernia (6) Ascites of liver (7) Coagulopathy (8) Cytopenia (9) Hepatic encephalopathy (10) Liver mass Symptom Scale: (1) Debility (2) Pain (3) Dyspnea Pertinent Non-Medical Issues Psychosocial: Patient is single male who has no children. His brother is his next of kin and lives locally. The patient previously lived in [place], [place] in [place]. He moved to [place] in March, to be closer to family. 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 Spiritual: Anglican anton Legal:Patient's brother, Doc Jackman, is the designated health care surrogate decision maker. His niece, Abeba Jackman, is listed as the alternate health care surrogate. Ethical issues impacting care: No known ethical issues impacting care at this time. . Important Contacts Doc Jackman, brother: [phone] . Prognosis Mr. Jackman is a 61 year old male with a past medical history the includes hepatic cirrhosis (likely secondary to a combination of heavy EtOH consumption and hemochromatosis) with recurrent ascites, history of EtOH abuse (quit 06/2016) , h/o esophageal varices, umbilical hernia, SBP, Jones's esophagus, HTN, hepatic encephalopathy, thrombocytopenia, GERD, and a liver mass-suspicious for hepatocellular cancer. Multiple recent hospitalizations secondary to hepatic encephalopathy, recurrent ascites requiring frequent paracentesis. Patient was treated with antibiotics during his last hospitalization in Oct, 2016 for suspected SBP. At that time, attempts were made at both [facility] and [facility] to have patient evaluated at a tertiary. A plan was in place for the patient to be evaluated outpatient at [facility] but secondary to his ongoing decline it is unlikely this will take place. Overall prognosis is poor. Patient is hospice appropriate if his goals become comfort focused. . Code Status: No Code Plan * NO CODE * Decision-making: Patient's brother, Doc Jackman, is the designated health care surrogate decision maker. His niece, Abeba Jackman, is listed as the alternate health care surrogate. * Goals: Hospice consult pending. * Patient response to simple questions with 12 word answers stating "Yes" or "Okay" or "Right"; responses are nonsensical at times. He remains encephalopathic-unable to remember his niece's name. Patient denies pain on exam but is observed grimacing with light abdominal palpation. Mild shortness of breath is noted at times with conversation secondary to abdominal distention and ascites. * Louisa CRUZ, case management and patient's nurse aware of hospice consult. Discussed with hospice intake and hospice admission nurse. * Palliative care contact information provided to the patient's family. * Symptom management managementencephalopathy: Hepatic encephalopathy. Lactulose dose and frequency increased to 30ml PO 4 times daily; patient refusing today. Ammonia level at 73. * Palliative care met with patient's family including his brother, sister-in- law and 2 nieces. Patient's recent decline and current hospitalization course were discussed; update on patient's current clinical condition was provided. Family states at this time the patient would not want to spend whatever time he has left in the hospital, and they would like to focus on the patient's quality of life. * Palliative care will continue to follow this patient throughout his hospitalization to establish trust, assist with symptom management and clarification of medical treatment goals. . Attestation To help prompt me to consider important information that might be impacting today's encounter and assessment, information from prior notes written by myself or my colleagues may have been "brought forward" into today's note. My signature on this note, however, is an attestation that I personally performed the exam, history, and/or decision-making noted today, and, unless otherwise indicated, the interactions with patient, family, and staff as well as the review of records all occurred today. I also attest that the listed assessment and stated plan reflect my best clinical judgment today based on the combination of historical information, prior notes, and today's exam/ interactions. When time spent is documented, it refers only to time spent today by the signer, or if indicated, combined time spent today by collaborating physician/nurse practitioner. . Rashida Jean Nov 28, 2016 16:42
== END 2016-11-28 20:25 | disposition hospice, inpatient (51) | DRG 683 ==
LOC: NEPE 11:19 → NEDA 14:43 → HOCA 17:01
PROVIDERS: ADMIT Hospitalist; ATTEND Hospitalist
DX: N17.9 Acute kidney failure, unspecified (principal); I85.00 Esophageal varices without bleeding; D70.9 Neutropenia, unspecified; E72.20 Disorder of urea cycle metabolism, unspecified; R18.8 Other ascites; K72.90 Hepatic failure, unspecified without coma; K74.60 Unspecified cirrhosis of liver; E83.110 Hereditary hemochromatosis; K21.9 Gastro-esophageal reflux disease without esophagitis; K42.9 Umbilical hernia without obstruction or gangrene; Z66 Do not resuscitate; R16.0 Hepatomegaly, not elsewhere classified; I10 Essential (primary) hypertension; Z51.5 Encounter for palliative care
CPT/HCPCS: 71010; 80048; 80053; 82140; 83605; 83690; 83735; 84100; 85007; 85027; 85610; 85730; 87040; 93005; 96374; 96375; 99211; C9113; G0463; J1940; J7030; P9047